=== PATIENT | male | born 1930 | race Caucasian/White ===

== ENCOUNTER 2016-05-24 15:11 | Inpatient (IN) | payer OTHER ==
[~2016-05-24] VITALS: Ht 177.8 cm; Wt 44.5 kg
--- NOTE | 2016-05-24 15:28 | NUR ---
PT TO ER WITH HIS SON, PT DID NOT WANT TO COME, PER SON PT IS WEAK TIRED NOT EATING AND DOES NOT WANT TO GET OUT OF BED FOR THE PAST FEW WEAKS . PT WAS SEEN IN A WALK IN FOR COMPLAINTS OF SOB AND WAS STARTED ON SPIRIVA. PT OFFERS NO COMPLAINTS BUT BECOMES VERY ANGRY WITH HIS AND SON WHEN THEY TRY TO HELP THIS NURSE WITH ANSWERS, SON VERY UPSET CRYING AND STATES THAT HE DOES'T KNOW WHAT TO DO. EMOTIONAL SUPPORT PROVIDED TO SON
--- NOTE | 2016-05-24 17:04 | ED GENERAL ADULT ---
History of Present Illness General Chief Complaint: General Adult Stated Complaint: GENERAL WEAKNESS Source: patient, family Exam Limitations: poor historian Vital Signs & Intake/Output Vital Signs & Intake/Output Vital Signs Date Time Temp Pulse Resp B/P Pulse O2 O2 Flow FiO2 Ox Delivery Rate 05/30 1649 93 Room Air 05/30 1600 Room Air 05/30 1554 98.2 83 21 123/74 95 Room Air 05/30 0825 97.7 78 20 120/60 92 Room Air 05/30 0751 95 Room Air ED Intake and Output 05/31 0000 05/30 1200 Intake Total 1160 620 Output Total 1850 1050 Balance -690 -430 Intake, IV 1160 560 Intake, Oral 0 60 Number 3 Bowel Movements Output, Urine 1850 1050 Allergies Coded Allergies: NO KNOWN ALLERGIES (05/24/16) Reconcile Medications Budesonide/Formoterol Fumarate (Symbicort 160-4.5 Mcg Inhaler) 160 MCG-4.5 MCG/ ACTUATION HFA.AER.AD COPD (Reported) Tiotropium [place] (Spiriva) 18 MCG CAP.W.DEV SOB (Reported) Triage Note: PT TO ER WITH HIS SON, PT DID NOT WANT TO COME, PER SON PT IS WEAK TIRED NOT EATING AND DOES NOT WANT TO GET OUT OF BED FOR THE PAST FEW WEAKS . PT WAS SEEN IN A WALK IN FOR COMPLAINTS OF SOB AND WAS STARTED ON SPIRIVA. PT OFFERS NO COMPLAINTS BUT BECOMES VERY ANGRY WITH HIS AND SON WHEN THEY TRY TO HELP THIS NURSE WITH ANSWERS, SON VERY UPSET CRYING AND STATES THAT HE DOES'T KNOW WHAT TO DO. EMOTIONAL SUPPORT PROVIDED TO SON Triage Nurses Notes Reviewed? yes HPI: This is an 85-year-old male with history of possible emphysema presents from home with his and son for a gradual progression of weakness for the past 1 week. According to the son he is not eating and drinking very much and is got very dehydrated. Patient denies any pain. The state that he has lost a lot of weight and usually is in the 130s and is now down to 90 pounds. He had an outpatient visit with a clinic and had a flu shot a few weeks ago. According to the patient has not felt well since then. No fever or chills. No productive cough. No vomiting or diarrhea. Past History Travel History Traveled to [place] past 21 day No Medical History Any Pertinent Medical History? 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 No Review of Systems Review of Systems Constitutional: Reports: malaise, weakness, unexplained weight loss. Denies: chills, fever. EENTM: Reports: no symptoms. Respiratory: Reports: cough. Denies: short of breath, sputum production. Cardiovascular: Denies: chest pain, palpitations, peripheral edema. GI: Denies: abdominal pain. Genitourinary: Reports: no symptoms. Musculoskeletal: Reports: no symptoms. Skin: Reports: no symptoms. Neurological/Psychological: Reports: anxiety. Hematologic/Endocrine: Denies: bruising, bleeding, polyuria, polydipsia. Immunologic/Allergic: Denies: splenectomy. All Other Systems: Reviewed and Negative Physical Exam Physical Exam General Appearance: alert, awake, anxious, cachetic, mild distress, obese Head: atraumatic, normal appearance Eyes: Bilateral: normal appearance, PERRL, EOMI. Ears, Nose, Throat: DRY ORAL MUCOSA Neck: normal inspection, supple, full range of motion Respiratory: normal breath sounds, chest non-tender, no respiratory distress Cardiovascular: regular rate/rhythm Peripheral Pulses: 2+ radial (R), 2+ radial (L) Gastrointestinal: normal bowel sounds, soft, non-tender Extremities: normal inspection, normal capillary refill, normal range of motion, no edema Neurologic/Psych: awake, alert, ORIENTED 1 Skin: intact, normal color, warm/dry Core Measures ACS in differential dx? No CVA/TIA Diagnosis: No Severe Sepsis Present: No Septic Shock Present: No Progress Differential Diagnoses I considered the following diagnoses in my evaluation of the patient: [FEDERICO, DEHYDRATION, SEPSIS, HYPOVOLEMIA, ] Plan of Care: Orders Procedure Date/time Status Regular Diet 05/30 L Complete Nothing by Mouth 05/30 D Active Patient Safety Monitor 05/30 1033 Active Grant, Insertion/Removal/Asses 05/30 1033 Active Treatment of Swallowing 05/30 UNK Complete Therapeutic Activities 05/30 UNK Complete Therapeutic Exercise 05/30 UNK Complete Gait Training 05/30 UNK Complete AEROSOL CHG 05/29 UNK Complete Current Medications Sig/Dominique Start time Last Medication Dose Stop Time Status Admin Docusate Sodium 100 MG BID PRN 05/26 1330 AC (Colace) Polyethylene Glycol 17 GM DAILY PRN 05/26 1330 AC (Miralax) Senna/Docusate Sodium 2 TAB DAILY PRN 05/26 1330 AC (Senokot S) Acetaminophen 650 MG Q6P PRN 05/24 2345 AC (Tylenol) Morphine Sulfate 2 MG Q8P PRN 05/24 2345 AC (Morphine) Tramadol HCl 25 MG Q12P PRN 05/24 2345 AC (Ultram) Diagnostic Imaging: Viewed by Me: CT Scan. Discussed w/RAD: CT Scan. Radiology Impression: EXAM TYPE: CAT - CT ABD & PELVIS W/O IV CONTRAS; CT CHEST WO IV CONTRAST; CT HEAD WO IV CONTRAST EXAMINATION: CT HEAD WITHOUT CONTRAST CT CHEST, ABDOMEN AND PELVIS WITHOUT CONTRAST CLINICAL INFORMATION: Multiple falls. Evaluate for intracranial bleed. Evaluate for mass/pneumonia. Evaluate for malignancy. COMPARISON: None. TECHNIQUE: Contiguous axial imaging was performed from the skull base to vertex without intravenous administration of contrast. DLP: Head 743.80 mGy-cm. Chest, abdomen and pelvis 355.02 mGy-cm. FINDINGS: HEAD Evaluation is degraded by patient motion. No definite evidence of acute intra-axial or extra-axial hemorrhage. No gross evidence of acute mass effect or midline shift. Prominence of the ventricles and sulci consistent with age- related involutional changes. Periventricular low-attenuation consistent with microvascular ischemic disease. Multiple lucencies compatible with bone demineralization versus lytic changes noted in the sphenoid bones and calvarium. Osseous metastases cannot be excluded. The mastoid air cells and visualized portions of the paranasal sinuses are well aerated. CT CHEST, ABDOMEN AND PELVIS CHEST: Evaluation is limited due to patient motion. Centrilobular emphysema. Reticular changes with associated irregular subpleural density right lower lobe (series 3 image 31/sagittal image 81) associated bronchial wall thickening. Findings are most likely secondary to scarring. Bronchial wall thickening and mild mucous plugging noted in bilateral lower lobes and to a lesser extent right middle lobe. Subsegmental atelectatic changes and scarring bilateral bases. 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 There is no evidence of mediastinal, supraclavicular or hilar lymphadenopathy. Unremarkable thyroid gland. Atherosclerotic disease of the aorta and the coronary arteries. No evidence of pleural or pericardial effusion. ABDOMEN AND PELVIS: Evaluation is limited by patient motion. Evaluation of the solid viscera is also limited without IV contrast. Liver, gallbladder and biliary tree appear grossly unremarkable. No gross pancreatic abnormality on the noncontrast images. Spleen appears unremarkable. Nonobstructing calculus mid right kidney measuring approximately 1.2 cm. Additional smaller calculus lower pole right kidney measuring 0.5 cm. No evidence of hydronephrosis. No gross renal cortical abnormality on the noncontrast images. Adrenal glands appear to be within normal limits. There is moderate to large amount of fecal material noted throughout the large bowel and rectum. Colonic diverticulosis. No gross evidence of acute diverticulitis. Nondistended stomach limiting the evaluation of the gastric wall. No gross evidence of acute bowel pathology. Atherosclerotic disease with intimal calcification of the aorta and aortic branches. No gross evidence of lymphadenopathy. Evaluation is limited due to paucity of intra-abdominal fat. Enlarged prostate gland measuring approximately 5.2 cm in the transverse diameter. Medial lobe hypertrophy projecting into the floor of the urinary bladder. No gross bladder wall abnormality. OSSEOUS STRUCTURES: Bony osteopenia or osteoporosis. Degenerative changes noted in the thoracic and lumbar spine. Degenerative changes bilateral hips. Abnormal lucency noted in the right iliac bone (series 602 image 52). Abnormal density also noted in the adjacent marrow. Bony lesion cannot be excluded. Additional subcortical lucency noted in the right posterior iliac bone likely represents a bone cyst. IMPRESSION: Examination is limited due to patient motion. 1. No acute intracranial pathology. 2. Moderate microvascular ischemic disease. 3. Multiple lucencies within the skull base and calvarium. Differential possibility includes severe bony demineralization versus lytic metastases. 4. Subpleural irregular density right lower lobe most likely represents scarring. Comparison to prior CT chest if available is recommended. In the absence of previous examinations, monitoring may be of value. Bronchial wall thickening and possible mucous plugging bilateral lower lobes. 5. No gross evidence of mass within abdomen or pelvis on the noncontrast images. No gross lymphadenopathy. 6. Nonobstructing calculi right kidney. 7. Abnormal lucency right iliac bone. Lytic osseous lesion cannot be excluded.. Initial ED EKG: NSR Departure Departure Disposition: STILL A PATIENT Condition: Stable Clinical Impression Primary Impression: Hypercalcemia Secondary Impressions: Failure to thrive, Multiple falls, Weakness Referrals: BEVERLEY SANTAMARIA MD (PCP/Family) Referred to [facility] as new patient No Departure Forms: Customer Survey General Discharge Information Admission Note Documentation of Exam: Documentation of any treatments & extenuating circumstances including Concerns Regarding Discharge (functional status, medication knowledge or non-compliance, living conditions, etc.) that warrant an admission rather than observation: [IV FLUIDS, MONITOR I/O, EVALUATION FOR HYPERCALCEMIA, PHYSICAL THERAPY CONSULT CONSIDERING MULTIPLE FALLS, WORKUP FOR WEIGHT LOSS] Critical Care Note Critical Care Note Critical Care Time: non-applicable
--- NOTE | 2016-05-24 17:38 | NUR ---
LABS DRAWN AND SENT BY THIS [facility]ST BLUE X2, SST X2, LAV X2, PINK, GRIFFIN 1ST SET OF CULTURES
--- NOTE | 2016-05-24 17:46 | NUR ---
IV ESTABLISHED AND NS IVF BOLUS RUNNING. EKG COMPLETED. PT SHIVERING, EXTRA BLANKETS APPLIED. FAMILY AT BEDSIDE
[2016-05-24 17:48] LABS: ABSOLUTE BASOPHIL COUNT 0.1 /CUMM (0.0-0.2); ABSOLUTE EOSINOPHIL COUNT 0 /CUMM (0.0-0.7); ABSOLUTE GRANULOCYTE CT 11.4 /CUMM (1.4-6.5); ABSOLUTE LYMPH COUNT 1.5 /CUMM (1.2-3.4); ABSOLUTE MONOCYTE COUNT 0.7 /CUMM (0.10-0.60); BASOPHIL % 0.8 % (0.0-2.0); EOSINOPHIL % 0.2 % (0-5); GRANULOCYTE % 82.6 % (42.2-75.2); HEMATOCRIT 44.6 % (42-52); MEAN CORPUSCULAR HGB 31.7 PG (27.0-31.0); MEAN CORPUSCULAR HGB CONC 33.7 G/DL (33.0-37.0); MEAN PLATELET VOLUME 8.2 FL (7.4-10.4); PLATELET COUNT 290 /CUMM (130-400); RBC DISTRIBUTION WIDTH 13.6 % (11.5-14.5); RED BLOOD CELL CT 4.74 /CUMM (4.70-6.10); WHITE BLOOD CELL COUNT 13.8 /CUMM (4.8-10.8)
[2016-05-24 17:59] LABS: PT 11.8 SEC (9.4-12.5); PTT 28 SEC (25-37)
--- NOTE | 2016-05-24 18:05 | NUR ---
PT TO CAT SCAN
--- NOTE | 2016-05-24 18:23 | NUR ---
PT'S COLORING IMPROVED AT THIS TIME, HANDS WARMER AND IMPROVED PERFUSION. O2 SAT 95% ON ROOM AIR AND DENIES RESP DISTRESS. PT STATES HE WOULD LIKE TO STAY HERE TONIGHT. EMOTIONAL SUPPORT PROVIDED TO SON WHO REMAINS TEARFUL
--- NOTE | 2016-05-24 19:04 | CT SCAN REPORT ---
EXAMINATION: CT HEAD WITHOUT CONTRAST CT CHEST, ABDOMEN AND PELVIS WITHOUT CONTRAST CLINICAL INFORMATION: Multiple falls. Evaluate for intracranial bleed. Evaluate for mass/pneumonia. Evaluate for malignancy. COMPARISON: None. TECHNIQUE: Contiguous axial imaging was performed from the skull base to vertex without intravenous administration of contrast. DLP: Head 743.80 mGy-cm. Chest, abdomen and pelvis 355.02 mGy-cm. FINDINGS: HEAD Evaluation is degraded by patient motion. No definite evidence of acute intra-axial or extra-axial hemorrhage. No gross evidence of acute mass effect or midline shift. Prominence of the ventricles and sulci consistent with age-related involutional changes. Periventricular low-attenuation consistent with microvascular ischemic disease. Multiple lucencies compatible with bone demineralization versus lytic changes noted in the sphenoid bones and calvarium. Osseous metastases cannot be excluded. The mastoid air cells and visualized portions of the paranasal sinuses are well aerated. CT CHEST, ABDOMEN AND PELVIS CHEST: Evaluation is limited due to patient motion. Centrilobular emphysema. Reticular changes with associated irregular subpleural density right lower lobe (series 3 image 31/sagittal image 81) associated bronchial wall thickening. Findings are most likely secondary to scarring. Bronchial wall thickening and mild mucous plugging noted in bilateral lower lobes and to a lesser extent right middle lobe. Subsegmental atelectatic changes and scarring bilateral bases. 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 There is no evidence of mediastinal, supraclavicular or hilar lymphadenopathy. Unremarkable thyroid gland. Atherosclerotic disease of the aorta and the coronary arteries. No evidence of pleural or pericardial effusion. ABDOMEN AND PELVIS: Evaluation is limited by patient motion. Evaluation of the solid viscera is also limited without IV contrast. Liver, gallbladder and biliary tree appear grossly unremarkable. No gross pancreatic abnormality on the noncontrast images. Spleen appears unremarkable. Nonobstructing calculus mid right kidney measuring approximately 1.2 cm. Additional smaller calculus lower pole right kidney measuring 0.5 cm. No evidence of hydronephrosis. No gross renal cortical abnormality on the noncontrast images. Adrenal glands appear to be within normal limits. There is moderate to large amount of fecal material noted throughout the large bowel and rectum. Colonic diverticulosis. No gross evidence of acute diverticulitis. Nondistended stomach limiting the evaluation of the gastric wall. No gross evidence of acute bowel pathology. Atherosclerotic disease with intimal calcification of the aorta and aortic branches. No gross evidence of lymphadenopathy. Evaluation is limited due to paucity of intra-abdominal fat. Enlarged prostate gland measuring approximately 5.2 cm in the transverse diameter. Medial lobe hypertrophy projecting into the floor of the urinary bladder. No gross bladder wall abnormality. OSSEOUS STRUCTURES: Bony osteopenia or osteoporosis. Degenerative changes noted in the thoracic and lumbar spine. Degenerative changes bilateral hips. Abnormal lucency noted in the right iliac bone (series 602 image 52). Abnormal density also noted in the adjacent marrow. Bony lesion cannot be excluded. Additional subcortical lucency noted in the right posterior iliac bone likely represents a bone cyst. IMPRESSION: Examination is limited due to patient motion. 1. No acute intracranial pathology. 2. Moderate microvascular ischemic disease. 3. Multiple lucencies within the skull base and calvarium. Differential possibility includes severe bony demineralization versus lytic metastases. 4. Subpleural irregular density right lower lobe most likely represents scarring. Comparison to prior CT chest if available is recommended. In the absence of previous examinations, monitoring may be of value. Bronchial wall thickening and possible mucous plugging bilateral lower lobes. 5. No gross evidence of mass within abdomen or pelvis on the noncontrast images. No gross lymphadenopathy. 6. Nonobstructing calculi right kidney. 7. Abnormal lucency right iliac bone. Lytic osseous lesion cannot be excluded..
--- NOTE | 2016-05-24 19:24 | NUR ---
SECOND LITER OF NS STARTED. PT ALERT AND TALKING.
--- NOTE | 2016-05-24 19:51 | NUR ---
PT ASSISTED TO LAVATORY TO URINATE.
--- NOTE | 2016-05-24 20:41 | History & Physical ---
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
--- NOTE | 2016-05-24 20:47 | NUR ---
PT REPOSITIONED IN BED, EDUCATED ON PLAN FOR EVAL BY HOUSE STAFF. SON PROVIDED EDUCATION AND SUPPORT, AWARE THAT PT MAY BE IN DEPT FOR A WHILE UNTIL BED IS AVAILABLE. SON TOOK MOST OF CLOTHES, PT REMAINS IN HIS OWN PANTS PER PREFERENCE. LIGHTS DIMMED FOR COMFORT
[2016-05-24] MEDS ORDERED: SPIRIVA18 MCG INH (21:10)
[2016-05-24] MEDS ORDERED: SYMBICORT 16010.2 GM INH (21:11)
--- NOTE | 2016-05-24 21:25 | NUR ---
HOUSE STAFF AT BEDSIDE
--- NOTE | 2016-05-24 21:32 | NUR ---
REPEAT LACTIC DRAWN AND SENT. PT ALERT, CONVERSING WITH ENTHUSIASM WITH HOUSE STAFF. COLORING IMPROVED.
--- NOTE | 2016-05-24 21:32 | NUR ---
URINE TRIO SENT TO LAB
--- NOTE | 2016-05-24 21:33 | NUR ---
PT HAS A BED 215-2
--- NOTE | 2016-05-24 22:01 | NUR ---
CRITICAL TEST RESULTS [id number] JACINTA MEDEIROS 85 M TESTS AND RESULTS: LACTIC ACID 2.3 Results received and read back by: MYLA BLANCO Results received date and time: 05/24/162201 The following provider was notified of the results, and read the results back: DR NEUMANN Notified date and time: 05/24/16 at 2202
--- NOTE | 2016-05-24 22:14 | NUR ---
GAVE REPORT TO MARCELINO ON
--- NOTE | 2016-05-24 22:24 | NUR ---
PT NOTED TO BE AMBULATORY IN ROOM AND HAD EPISODE OF INCONTINENCE DESPITE MULTIPLE EXPLANATIONS ON USE OF CALL MCCANN. BRIEF APPLIED AND PT ASSISTED BACK TO BED. REMAINS AAOX3
[2016-05-24 22:50] VITALS: BP 118/58
--- NOTE | 2016-05-24 23:24 | NUR ---
ADMISSION NOTE: PT ARRIVED TO FLOOR IN STRETCHER WITH DISTRIBUTION A/OX3, ROOM AIR, NO PAIN, SHIVERING- C/O COLD, APPRECIATED WARM RICE SOCK, VSS, ORITENTED TO ROOM, WAS ABLE TO GIVE ALL INFO IN ADMISSION INTERVIEW EXCEPT HEIGHT AND WEIGHT, ESOB NOTED, ROOM AIR SAT WAS 94%, LUNGS SOUNDED DIMINISHED/RHONCHEROUS. WILL CONTINUE TO MONITOR.
--- NOTE | 2016-05-25 01:10 | History & Physical ---
YVONNE GUTIERREZ,[facility] 05/25/16 0109: General Information and [facility] MD Statement: I have seen and personally examined JACINTA NICE and documented this H&P. The patient is a 85 year old M who presented with a patient stated chief complaint of [general weakness for 4 weeks]. Source of Information: patient, family Exam Limitations: poor historian History of Present Illness: Mr. Nice is 85 years old male with chief complaint of generalized weakness for 4 weeks. PMH of BPH s/p TURP 2 time last was 2 years ago. He has significant history of nonproductive cough and weight loss over a course of 1 year. Patient was brought to ED by his and son because he was found very weak and had urinary incontinence for the first time yesterday. Patient is alert oriented but sometimes poor historian, son is a parallel source of history. The patient reported that 4 weeks ago after he received a flu shot at [facility], he started to feel weak with progressive deterioration associated with shortness of breath, night sweats, poor oral intake. His son reported that despite this week the patient was able to do his daily activity and able to drive until last weekend but his weakness was getting worse over the last week. His family noticed weight loss at [facility] of 1-2 Ib/week despite good oral intake until 1 month ago. They also noticed that the patient is getting irritable and his chronic cough was getting worse for which he visited walk-in clinic right after Thanksgiving and was prescribed Spreva and Symbicort, he also used to use of Robitussin 2 bottles daily. The patient didn't see his PCP for a very long time. Patient reported feeling shaky, lightheadedness at some time. Denied any fever, chills, chest pain or palpitation, abdominal pain, nausea vomiting, history of urinary or stool incontinence. The patient is an ex-smoker quit 10 years ago, was a heavy smoker for over 40 years. Drinks alcohol occasionally, no history of drugs. He worked in [employer], retired 4 years ago. His family history is not significant for any malignancy, his son has HIV with undetectable viral load for the last 3 years. Allergies/Medications Allergies: Coded Allergies: NO KNOWN ALLERGIES (05/24/16) Home Med list Budesonide/Formoterol Fumarate (Symbicort 160-4.5 Mcg Inhaler) 160 MCG-4.5 MCG/ ACTUATION HFA.AER.AD COPD (Reported) Tiotropium [place] (Spiriva) 18 MCG CAP.W.DEV SOB (Reported) Past History Travel History Traveled to [place] past 21 day No Medical History Blood Transfusion Hx: No Neurological: NONE EENT: NONE Cardiovascular: NONE Respiratory: chronic cough Gastrointestinal: NONE Hepatic: NONE Renal: NONE Musculoskeletal: NONE Psychiatric: NONE Endocrine: NONE Blood Disorders: NONE Cancer(s): NONE EDUCATION DEPARTMENT CHAIR/Reproductive: NONE Influenza Vaccine: 03/11/16 Surgical History Surgical History: TURP Past Family/Social History Psychosocial History Where do you live? Home Who Do You Live With? 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 Denies: chills, fever. EENTM: Denies: blurred vision, hearing changes, nasal congestion. Cardiovascular: Denies: chest pain, orthopena, palpitations, syncope. Respiratory: Reports: cough, short of breath. Denies: orthopnea, sputum production, stridor, wheezing. GI: Denies: abdominal pain, constipation, diarrhea, nausea, vomiting. Genitourinary: Denies: discharge, dysuria, frequency, hematuria, hesitation. Musculoskeletal: Denies: back pain, joint pain, muscle pain. Skin: Denies: rash. Neurological/Psychological: Reports: tremors. Denies: confusion, tingling. Hematologic/Endocrine: Reports: bruising. Denies: bleeding. Exam & Diagnostic Data Last 24 Hrs of Vital Signs/I&O Vital Signs Date Time Temp Pulse Resp B/P Pulse O2 O2 Flow FiO2 Ox Delivery Rate 05/24 2250 97.4 82 18 118/58 94 Room Air 05/24 2230 Room Air 05/24 2224 80 16 116/67 94 Room Air 05/246 97.2 86 18 132/72 92 Room Air 05/24 1822 90 18 95 Room Air 05/24 1817 92 Room Air 05/24 1805 88 14 134/63 Room Air 05/24 1521 97.9 117 20 117/79 92 Room Air Intake & Output 05/25 0800 05/25 0000 05/24 1600 Intake Total 1600 Output Total 300 200 Balance -300 1400 Intake, IV 1600 Output, Urine 300 200 Patient 44.452 kg Weight Physical Exam General Appearance Alert, Oriented X3, Cooperative, No Acute Distress, cachectic Skin No Rashes, No Breakdown, bruises over his arms bilaterally because of IV lines HEENT Atraumatic, PERRLA, EOMI, very dry mucous membrane Neck Supple Lymphatic no cervical lymphadenopathy Cardiovascular Regular Rate, Normal S1, Normal S2, No Murmurs Lungs Normal Air Movement Abdomen Normal Bowel Sounds, firm but no tenderness Neurological Normal Speech, Strength at 5/5 X4 Ext, Normal Tone, Sensation Intact, Cranial Nerves 3-12 NL Extremities No Clubbing, No Cyanosis, No Edema, Normal Pulses Assessment/Plan Assessment: Mr. Nice is 85 years old male with chief complaint of generalized weakness for 4 weeks. PMH of BPH s/p TURP 2 time last was 2 years ago. He has significant history of nonproductive cough and weight loss over a course of 1 year. Patient was brought to ED by his and son because he was found very weak and had urinary incontinence for the first time yesterday. On admission Vital signs temperature 97.9, pulse 90 regular rhythm, respiratory rate 18 on the room air saturation 95%, temperature 54/63 Labs significant for WBC 13.8, H&H 15/44.6, sodium 136, potassium 4.9, bicarbonate 35, BUN 31, creatinine 1, lactic acid 2.2, calcium 13.9, creatinine kinase 34 low, total protein 11.2 high, albumin 3.9, globulin 7.3, TSH 2.8, free T4 1 0.57, parathyroid hormone intact 7.3 Problem list #Chronic history with lei loss #Progressive weakness #Chronic history of nonproductive cough #Dehydration #Chronic history with lei loss #Progressive weakness -The patient reported history of weight loss course of 1 year and recent history of poor oral intake, night sweats, progressive weakness -Lab results are significant for metabolic acidosis, increased BUN, creatinine of 1 that doesn't correlate with the patient's muscle mass, high total protein of 11.2 with significant globulin 7.3, normal parathyroid hormone, hypercalcemia -Imaging studies CT head, chest, abdomen and pelvis are significant fore. 1. Multiple lucencies within the skull base and calvarium. Differential possibility includes severe bony demineralization versus lytic metastases. 2. Abnormal lucency right iliac bone. Lytic osseous lesion cannot be excluded. -Given the patient's symptoms, lab results and imaging studies the suspicion is towards multiple myeloma -Consider serum and urine flow cytometry -Serum protein electrophoresis with immunofixation, serum free monoclonal light chain analysis -Monitor lactic acid, creatinine, albumin, calcium, C-reactive protein and beta 2 microglubin -Peripheral blood smear #Chronic history of nonproductive cough -Patient has history of heavy smoking for over 40 years, quit 10 years ago -History of chronic cough over one year nonproductive associated with shortness of breath -CT chest shows 1. Subpleural irregular density right lower lobe most likely represents scarring. Comparison to prior CT chest if available is recommended. In the absence of previous examinations, monitoring may be of value. Bronchial wall thickening and possible mucous plugging bilateral lower lobes. -Consider pulmonary function test -TRC evaluation #Dehydration -Patient of physical examination is very dry him up BUN is 31 -Patient received 2 boluses of IV fluid normal saline ED -Continue aggressive rehydration with normal saline 1 50 mL/h Diet regular DVT prophylaxis subcutaneous heparin and alps As Ranked By This Provider Problem List: 1. Weakness 2. Hypercalcemia 3. Failure to thrive Core Measures/Miscellaneous Acute Coronary Syndrome ACS Diagnosis: No Cerebrovascular Accident CVA/TIA Diagnosis: No Congestive Heart Failure CHF Diagnosis: No Venous Thromboembolism VTE Risk Factors: Age > 40 VTE Prophylaxis Ordered Inpt: Pharm- Heparin No Mech VTE prophylaxis d/t: No contraindications No VTE Pharm Prophylaxis d/t: No contraindications VTE Diagnosis: No VTE Type: NONE VTE Confirmed by (Test): NONE Severe Sepsis Severe Sepsis Present: No Septic Shock Septic Shock Present: No Miscellaneous Documentation Attending Case Discussed With: MYRANDA LAW MD Primary Care Physician: BEVERLEY SANTAMARIA MD Patient sees these Specialists None Level of Patient Care: General Medicine SHERON GOLDMAN MD 05/25/16 0329: Resident Review Statement Resident Statement: examined this patient, discussed with leadership program intern, agreed with leadership program intern Other Findings: 85 YO male arrives to the hospital at his sons request, family feel that he has been loosing alot of weight recently. They were not present during interview, we reached out to his son to provide collaterals as the patient answers questions sporadically. Son reports that over the past year his dad had a chronic cough as well as weight loss. Over the past 4 weeks both have been more pronounced. Report that his father does have a good appetite yet despite this is loosing a significant amount of weight. Relay that he got the flue vaccine last month and his cough has increased along with irritabilty and profound weight loss as well as night sweats. He has not seen his PCP in years and when he developed this increased cough went to walkin clinic, was prescribed inhalers, he also started using robitussin more than directed, (2 bottles daily) Mr. 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 Was driving his car last week. Denies chest pain, palpitatations, [place], vomiting, diarrhea. He does have a history of extensive tobaccco use of more than 40 years duration before quitting 10 years ago. 97.2, 86, 18, 132/72, 92 RA Severely cachetic appearing male, alert, awake, mildly aggitated, requires redirection to conduct interview HEENT NCAT, PERRLA, EOMI, dry mucosa Neck ROM wnl, muscle wasting Resp decreased breath sounds cvs S1, S2 w/o m,r,g abdo nontender, nondistended, firm, bs + ext bruising noted on upperarms, actinic keratosis on skin WBC 13.8, granulocytes 82%, Bicarb 35, lactic acid 2.2, Calcium 13.9 Total Protein 11.2, Albumin 3.9, Globulin 7.3, PTH <6.3, TSH/T4 WNL SR 96, QTc 440 Imgaging (limited due to patient motion) 1. No acute intracranial pathology. 2. Moderate microvascular ischemic disease. 3. Multiple lucencies within the skull base and calvarium. Differential possibility includes severe bony demineralization versus lytic metastases. 4. Subpleural irregular density right lower lobe most likely represents scarring. Comparison to prior CT chest if available is recommended. In the absence of previous examinations, monitoring may be of value. Bronchial wall thickening and possible mucous plugging bilateral lower lobes. 5. No gross evidence of mass within abdomen or pelvis on the noncontrast images. No gross lymphadenopathy. 6. Nonobstructing calculi right kidney. 7. Abnormal lucency right iliac bone. Lytic osseous lesion cannot be excluded. 85 M presents with complaints of chronic cough for the past one year along with profound weight loss and generalized weakness for the past 4 weeks. Found to be hypercalemic with low PTH, clinically severely dehydrated. Labs and imaging suggestive of myeloma. We will admit to [facility] floor We will continue to aggressively hydrate him, his calcium level is 13.9. We will hold off on calcitonin and pamindronate at this time. We will continue IVF and check am labs. We will check SPEP and UPEP levels, along with vitamin D levels. His leukocytocytosis is likely reactive, we will hold off on abx at this time and get urine cultures, blood cultures already ordered. His lactic acid level is elevated we will recheck in am after fluid supplementation. CT scan obtained demonstrates irregular density with scarring. 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 Check to see if PCP has any record of imaging done in recent past. Will place on heparin sq for dvt ppx. ANI,AARTEE 05/25/16 0521: Attending MD Review Statement Attending Statement Attending MD Statement: examined this patient, discuss w/resident/PA/FOREIGN AGENT, agreed w/resident/PA/FOREIGN AGENT, discussed with family, reviewed EMR data (avail), reviewed images, amended to note Attending Assessment/Plan: CC: Lethargy, weakness, decreased by mouth intake PMHx : ?COPD, Ex-smoker Patient was brought in by his son for multiple complaints including but not limited to lethargy, decreased by mouth intake (4 weeks), weakness, chronic cough (1 year), night sweats, weight loss (1year). These symptoms have been going on since a few weeks but worse since last 1 week. He is not getting up from the bed much, and had an episode of urinary incontinence today. He was recently prescribed some inhalation therapy in walk-in clinic for cough and shortness of breath. He does not follow with the PCP, and has not received any medical care since long time. Patient keeps on refusing according to son Vitals: Tachycardia at presentation 117 then decreased to 82, BP, RR, O2 saturation within acceptable range. on exam: A O 2, mild respiratory distress, cachectic, neck supple, no lymphadenopathy, CVS, RS and abdomen exam unremarkable, neurologically intact but cognition appears mildly impaired, at times inappropriate response. Labs: WBC 13.8 with neutrophils 82%, calcium 13.9, bicarbonate 35, lactate 2.2, total protein 11.2, globulin 7.3. CT head, CT chest and CT abdomen and pelvis: Moderate microvascular ischemic disease. Multiple lucencies within the skull base and calvarium. Differential possibility includes severe bony demineralization versus lytic metastases. Subpleural irregular density right lower lobe most likely represents scarring. Abnormal lucency right iliac bone. Lytic osseous lesion cannot be excluded.. A and P #1 hypercalcemia: Check PTH, vitamin D level, he has elevated total protein and globulin, check UPEP and SPEP, continue IV fluids, repeat CBC BMP and LFT in a.m. #2 cachexia and failure to thrive: Unclear etiology, patient does hypercalcemia, likely lesions in the bone, increased total protein and globulin. Check prealbumin, nutrition consult, UPEP and SPEP as mentioned above, PT evaluation #3 shortness of breath and cough : History of smoking, CT suggestive of emphysema, increased by bicarbonate, but O2 saturation normal. No obvious wheezing on exam. continue when necessary nebulization treatments. Outpatient PFT #4 leukocytosis : No fever. Patient has chronic cough, CT chest shows reticular changes and subpleural density in the right lower lobe likely secondary to scarring, obtain UA, urine culture, blood cultures, sputum culture. Patient is currently a febrile, repeat CBC in a.m., if persistent leukocytosis or trending up then he might need antibiotics, currently hold off antibiotics
--- NOTE | 2016-05-25 05:02 | Admission Certification ---
Admission Certification Certification Statement - As attending physician, I certify that at the time of - admission, based on clinical presentation, severity of - symptoms, need for further diagnostic testing and - therapeutic interventions, and risk of adverse outcomes - without in-hospital treatment, in my clinical assessment, - this patient requires an acute hospital stay for a minimum - of two nights or longer. I have also considered psychsocial - factors such as support system, advanced age, financial - issues, cognitive issues, and failed out-patient treatments, - past re-admission history, safety of patient, and lack of - compliance as applicable. Specific rationale supporting this admission is: Failure to thrive, hypercalcemia
--- NOTE | 2016-05-25 06:53 | PN- Housestaff ---
See Addendum Subjective Follow-up For: hypercalcemia ?multiple myeloma cachexia failure to thrive Subjective: pt was seen this morning, very cachectic - ck 34 reviewing the imaging findings and the labs so far, suspicious for multiple myeloma. his son is very anxious and tearful regarding pt's condition. his is demented and forgetful. son very frustrated that neither the or the pt were listening or appeared concern while i was discussing the findings and diagnostic possibilities with him. I spoke to Dr. Novak this morning and he was recommending starting bisphosphonate therapy, getting skeletal survey, b2 microglobulin, immunoglobulin level inc igg, igm, iga, immunofixation, serum free light chain, and ldh. we are still waiting for the urine protein electrophoresis and serum protein electrophoresis. we also ordered pth-rp. as some of these tests are send -outs, it might take 4-5 days to obtain the results. - ldh 325 - ca 13.9 to 12.3 - la 2.3 --> 1.1 his hypercalcemia improved with ivf 150ml/hr, went from 13.9 to 12.3. his albumin is 3.9 . - family reports that he has been more angry and yelling at them lately. - pth < 6.3 L - bun/cr on admssion 11/07 (pt very cachectic) .. appears dehydrated we will obtain nutritional and pt consult Review of Systems Constitutional: Reports: see HPI. Objective Last 24 Hrs of Vital Signs/I&O Vital Signs Date Time Temp Pulse Resp B/P Pulse O2 O2 Flow FiO2 Ox Delivery Rate 05/25 0824 98.4 05/25 0803 98.0 80 20 120/60 95 Room Air 05/24 2250 97.4 82 18 118/58 94 Room Air 05/24 2230 Room Air 05/24 2224 80 16 116/67 94 Room Air 05/24 2026 97.2 86 18 132/72 92 Room Air 05/24 1822 90 18 95 Room Air 05/24 1817 92 Room Air 05/24 1805 88 14 134/63 Room Air Intake & Output 05/25 1600 05/25 0800 05/25 0000 Intake Total 1800 1600 Output Total 960 300 200 Balance 840 -300 1400 Intake, IV 1600 Intake, Oral 1800 Output, Urine 960 300 200 Physical Exam General Appearance: Alert, Cooperative, No Acute Distress, cachectic Skin: No Significant Lesion HEENT: Atraumatic, PERRLA, EOMI Neck: Supple Lymphatic: Axillary nl, Cervical nl Cardiovascular: Regular Rate, Normal S1, Normal S2 Lungs: Clear to Auscultation, Normal Air Movement Abdomen: Normal Bowel Sounds, Soft, No Tenderness Neurological: Normal Speech Extremities: No Edema Current Medications: Current Medications Sig/Dominique Start time Last Medication Dose Route Stop Time Status Admin Acetaminophen 650 MG Q6P PRN 05/24 2345 AC PO Alendronate Sodium 70 MG QTHURS 05/25 1145 AC PO Heparin Sodium 5,000 UNIT Q8 05/25 0600 AC 05/25 (Porcine) SC 0547 Morphine Sulfate 2 MG Q8P PRN 05/24 2345 AC IV Pneumococcal 0.5 ML 1000 05/25 1000 DC 05/25 Polyvalent Vaccine IM 05/25 1001 0824 Sodium Chloride 1,000 ML Q8H 05/24 2345 AC 05/25 IV 0651 Sodium Chloride 1,000 ML BOLUS ONE 05/24 1915 DC 05/24 IV 05/24 2014 1923 Sodium Chloride 1,000 ML BOLUS ONE 05/24 1730 DC 05/24 IV 05/24 1829 1746 Tramadol HCl 25 MG Q12P PRN 05/24 2345 AC PO Last 24 Hrs of Lab/Bert Results Last 24 Hrs of Labs/Mics: Laboratory Tests 05/25/16 0655: Anion Gap 2 L, Estimated GFR > 60, BUN/Creatinine Ratio 24.4, Lactic Acid 1.1, Calcium 12.3 H, Lactate Dehydrogenase 325 05/25/16 0655: Prot Electrophoresis Pending, Total Protein (PEP) Pending, Albumin % (PEP) Pending, Phtbo-5-Hkamxkixg Pending, Wgjly-9-Jmcfjllfr Pending, Yxgs-1-Nrojmpid Pending, Shri-1-Pkaxdijr Pending, Gamma Globulins Pending, Abnorm Protein Band 1 Pending, Abnorm Protein Band 2 Pending, Abnorm Protein Band 3 Pending, Vit D 1, 25-Dihyd Total Pending, 1,25 Dihydroxy Vit D2 Pending, 1,25 Dihydroxy Vit D3 Pending, CBC w Diff NO MAN DIFF REQ, RBC 3.74 L, MCV 94.2 H, MCH 32.0 H, RDW 13.5, MPV 8.9, Gran % 81.9 H, Lymphocytes % 10.0 L, Monocytes % 7.5, Eosinophils % 0.2, Basophils % 0.4, Absolute Granulocytes 10.0 H, Absolute Lymphocytes 1.2, Absolute Monocytes 0.9 H, Absolute Eosinophils 0, Absolute Basophils 0, PUBS MCHC 34.0 05/24/162131: Lactic Acid 2.3 H 05/24/162124: Urinalysis LIGHT H, Urine Color YEL, Urine Clarity CLEAR, Urine pH 7.0, Ur Specific [place] 1.015, Urine Protein NEG, Urine Ketones NEG, Urine Nitrite NEG, Urine Bilirubin NEG, Urine Urobilinogen 0.2, Ur Leukocyte Esterase NEG, Ur Microscopic SEDIMENT EXAMINED, Urine RBC 1-3, Urine WBC RARE, Ur Epithelial Cells FEW, Urine Hemoglobin TRACE-INTACT H, Urine Glucose NEG 05/24/161712: Lactic Acid 2.2 H, Creatine Kinase 34 L 05/24/161712: Anion Gap 5, Estimated GFR > 60, BUN/Creatinine Ratio 31.0 H, Glucose 121 H, Calcium 13.9 H, Total Bilirubin 0.9, AST 22, ALT 20 L, Alkaline Phosphatase 116, Troponin I < 0.01, Total Protein 11.2 H, Albumin 3.9, Globulin 7.3 H, Albumin/Globulin Ratio 0.5 L, TSH 2.820, Free T4 1.37, PTH Intact < 6.3 L, PT 11.8, INR 1.13, APTT 28, CBC w Diff NO MAN DIFF REQ, RBC 4.74, MCV 94.0, MCH 31.7 H, RDW 13.6, MPV 8.2, Gran % 82.6 H, Lymphocytes % 11.2 L, Monocytes % 5.2, Eosinophils % 0.2, Basophils % 0.8, Absolute Granulocytes 11.4 H, Absolute Lymphocytes 1.5, Absolute Monocytes 0.7 H, Absolute Eosinophils 0, Absolute Basophils 0.1, PUBS MCHC 33.7 Microbiology 05/255 URINE ROUT: Urine Culture - RECD 05/24 1910 BLOOD: Blood Culture - RES 05/24 1910 BLOOD: Blood Culture - RES Assessment/Plan Assessment: Mr. Nice is 85-year-old male with chief complaint of generalized weakness for 4 weeks. PMH of BPH s/p TURP 2 time last was 2 years ago. He has significant history of nonproductive cough and weight loss over a course of 1 year. Patient was brought to ED by his and son because he was found very weak and had urinary incontinence for the first time on day of admission . Coude catheter day # 1 Problem list # Possible multiple myeloma: hypercalcemia, low PTH, weakness, cachexia, dehydration # Chronic history of nonproductive cough # Possible multiple myeloma: hypercalcemia, low PTH, weakness, cachexia - Discussed with Dr. Novak - ldh 325 - ca 13.9 to 12.3 - la 2.3 --> 1.1 - total protein 11.2. total albumin 3.9. - ck 34 - The patient reported history of weight loss course of 1 year and recent history of poor oral intake, night sweats, progressive weakness - Lab results are significant for metabolic acidosis, increased BUN, creatinine of 1 that doesn't correlate with the patient's muscle mass, high total protein of 11.2 with significant globulin 7.3, low parathyroid hormone, hypercalcemia - Imaging: Multiple lucencies within the skull base and calvarium. Differential possibility includes severe bony demineralization versus lytic metastases.Abnormal lucency right iliac bone. Lytic osseous lesion cannot be excluded. * follow skeletal survey: Extensive lucent lesions throughout the osseous structures, most prominently affecting the skull, pelvis, and extremities. Findings are suspicious for multiple myeloma versus metastatic disease. * pending b2 microglobulin, immunoglobulin level inc igg, igm, iga, immunofixation, serum free light chain. urine protein electrophoresis and serum protein electrophoresis. pth-rp. as some of these tests are send-outs, it might take 4-5 days to obtain the results. * Appreciate heme onc input * Consider serum and urine flow cytometry * Serum protein electrophoresis with immunofixation, serum free monoclonal light chain analysis * Monitor lactic acid, creatinine, albumin, calcium, C-reactive protein and beta 2 microglubin * Peripheral blood smear * Continue aggressive rehydration with normal saline 150 mL/h * we will obtain nutritional and pt consult * pp: oral tylenol, tramadol 25 q12p, morphine 2q8p * pt refused bone marrow biopsy and chemo * might be candidate for steroids # Hypercalcemia - his hypercalcemia improved with ivf 150ml/hr, went from 13.9 to 12.3. his albumin is 3.9 . - family reports that he has been more angry and yelling at them lately. - pth < 6.3 L - on admssion bun/cr 31/1 (pt very cachectic) .. appears dehydrated * Started alendronate # Chronic history of nonproductive cough - Patient has history of heavy smoking for over 40 years, quit 10 years ago - History of chronic cough over one year nonproductive associated with shortness of breath -CT chest shows subpleural irregular density right lower lobe most likely represents scarring. Comparison to prior CT chest if available is recommended. In the absence of previous examinations, monitoring may be of value. Bronchial wall thickening and possible mucous plugging bilateral lower lobes. * Consider pulmonary function test * TRC evaluation Diet: regular DVT prophylaxis: subcutaneous heparin and alps FULL CODE Problem List: 1. Failure to thrive 2. Hypercalcemia 3. Weakness Pain Ratin Pain Location: none Pain Goal: Remain pain free Pain Plan: mild pp Tomorrow's Labs & Rationales: bep and ca for hypercalcemia cbc for leukocytosis DVT/Prophylaxis: mechanical, pharmacological
[2016-05-25 08:03] VITALS: BP 120/60
[2016-05-25 08:24] LABS: ABSOLUTE BASOPHIL COUNT 0 /CUMM (0.0-0.2); ABSOLUTE EOSINOPHIL COUNT 0 /CUMM (0.0-0.7)
[2016-05-25 08:41] LABS: ABSOLUTE LYMPH COUNT 1.2 /CUMM (1.2-3.4); ABSOLUTE MONOCYTE COUNT 0.9 /CUMM (0.10-0.60); BASOPHIL % 0.4 % (0.0-2.0); EOSINOPHIL % 0.2 % (0-5); GRANULOCYTE % 81.9 % (42.2-75.2); MEAN CORPUSCULAR VOLUME 94.2 FL (80.0-94.0); MEAN PLATELET VOLUME 8.9 FL (7.4-10.4); PLATELET COUNT 277 /CUMM (130-400); RBC DISTRIBUTION WIDTH 13.5 % (11.5-14.5); RED BLOOD CELL CT 3.74 /CUMM (4.70-6.10); WHITE BLOOD CELL COUNT 12.2 /CUMM (4.8-10.8)
[2016-05-25 08:49] LABS: HEMATOCRIT 35.3 % (42-52)
--- NOTE | 2016-05-25 15:27 | RADIOLOGY REPORT ---
EXAMINATION: XR BONE SURVEY CLINICAL INFORMATION: Lytic lesions of the skull and right iliac bone. COMPARISON: Head CT from 05/24/2016. Chest abdomen and pelvis study from the same date. TECHNIQUE: 18 images of the axial and appendicular skeleton. FINDINGS: Frontal view of the chest demonstrates mild interstitial prominence in the lungs. These are more completely evaluated on the recent prior CT. No gross osseous abnormality of the ribs. Lateral view of the skull demonstrates multiple lucent lesions throughout the calvarium, corresponding to the appearance on the prior CT. Lateral view of the cervical spine demonstrates no focal osseous lesion. Mild degenerative changes. 2 views of the thoracic spine demonstrate mild scoliotic curvature. No focal osseous lesions are identified. 2 views of the lumbar spine demonstrate no focal osseous lesions. The bones are osteopenic. Mild degenerative changes. Frontal view of the pelvis demonstrates multiple small lucent lesions throughout the entire pelvis and in the proximal femora bilaterally. This corresponds to the appearance on the prior CT. Single view of each humerus demonstrate small lucencies scattered in both humeral diaphyses. Anatomic alignment at the shoulder and elbow bilaterally. Single view of each forearm demonstrates small lucent foci within the radius bilaterally. Degenerative changes are seen at both wrists and elbows with chondrocalcinosis present. Frontal view of the right femur demonstrates multiple lucent lesions throughout the length of the femur. Single view of the right tibia/fibula demonstrate no definite lesions. Degenerative changes of the knee. Frontal view of the left femur demonstrates multiple lucent lesions throughout the length of the femur. Frontal view of the left tibia/fibula demonstrates no definite lesions. Degenerative changes of the knee. IMPRESSION: Extensive lucent lesions throughout the osseous structures, most prominently affecting the skull, pelvis, and extremities. Findings are suspicious for multiple myeloma versus metastatic disease.
[2016-05-25 16:03] VITALS: BP 100/52
--- NOTE | 2016-05-25 16:04 | NUR ---
1600 PT HAS A URPE ORDERED, CONFIRMED WITH THE LAB THAT A 24 HOUR URINE IS NECESSARY. ORDER OBTAINED FOR A GUERRA FROM LYE MACHINE OPERATOR MATTHEW AGGARWAL, DUE TO INCONTINENCE. RESISTANCE AND PAIN WAS ENCOUNTERED WITH ADVANCEMENT OF THE GUERRA UNDER STERILE TECHNIQUE . LYE MACHINE OPERATOR MATTHEW AGGARWAL NOTIFIED.
--- NOTE | 2016-05-25 16:54 | NUR ---
1640 CUDEE TIP GUERRA CATHETER OBTAINED WITH ARANZA BRADLEY AT BEDSIDE. IIKYRA AGGARWAL NOTIFIED. GUERRA BAG MAINTAINED ON ICE FOR 24 HOUR COLLECTION.
--- NOTE | 2016-05-25 19:02 | Cons- Hematology ---
General Information and HPI Consulting Request Date of Consult: 05/25/16 Requested By: NORI GARZA MD Reason for Consult: concern for myeloma Source of Information: patient, old records Exam Limitations: clinical condition, poor historian History of Present Illness: Mr. Nice is 85-year-old male with history of BPH s/p TURP who presented to the hospital with generalized weakness. History was limited due to patient refusing to answer questions and examination. History obtained to medical record mostly. He has been having progressive generalized weakness of the past month. He has been losing weight over the past 1 year. His and son took him to the ED because he was found very weak and had urinary incontinence. The patient has been progressively feeling weak since a flu vaccination 4 weeks ago. He has had worsening shortness of breath, night sweats, and appetite with poor oral intake. Patient was still able to drive until last weekend. Patient has been more irritable. Per history, he is a previous smoker. He drinks alcohol occasionally. He currently denies any pain. Allergies/Medications Allergies: Coded Allergies: NO KNOWN ALLERGIES (05/24/16) Home Med List: Budesonide/Formoterol Fumarate (Symbicort 160-4.5 Mcg Inhaler) 160 MCG-4.5 MCG/ ACTUATION HFA.AER.AD COPD (Reported) Tiotropium [place] (Spiriva) 18 MCG CAP.W.DEV SOB (Reported) Current Medications: Current Medications Sig/Dominique Start time Last Medication Dose Route Stop Time Status Admin Acetaminophen 650 MG Q6P PRN 05/24 2345 AC PO Alendronate Sodium 70 MG QFRI@0700 05/26 0700 PO Alendronate Sodium 70 MG QTHURS 05/25 1145 ME PO Heparin Sodium 5,000 UNIT Q8 05/25 0600 AC 05/25 (Porcine) SC 1607 Morphine Sulfate 2 MG Q8P PRN 05/24 234 AC IV Pneumococcal 0.5 ML 1000 05/25 1000 DC 05/25 Polyvalent Vaccine IM 05/25 1001 0824 Sodium Chloride 1,000 ML Q8H 05/24 2345 AC 05/25 IV 1649 Sodium Chloride 1,000 ML BOLUS ONE 05/24 1915 DC 05/24 IV 05/24 Tramadol HCl 25 MG Q12P PRN 05/24 2345 AC PO Review of Systems Review of Systems: Limited due to patient's uncooperation. Review of Systems Constitutional: Reports: weakness, unexplained weight loss. Denies: chills, fever. Cardiovascular: Denies: chest pain. Respiratory: Reports: short of breath. Musculoskeletal: Denies: back pain, joint pain, muscle pain. All Other Systems: Reviewed and Negative Past History Travel History Traveled to [place] past 21 day No Medical History Blood Transfusion Hx: No Neurological: NONE EENT: NONE Cardiovascular: NONE Respiratory: chronic cough Gastrointestinal: NONE Hepatic: NONE Renal: benign prost hyperplasia Musculoskeletal: NONE Psychiatric: NONE Endocrine: NONE Blood Disorders: NONE Cancer(s): NONE TUNNEL MINER/Reproductive: NONE Surgical History Surgical History: TURP Psychosocial History Where Do You Live? Home Who Do You Live With? spouse Services at Home: None Primary Language: Macedonian Smoking Status: Former Smoker ETOH Use: denies use Illicit Drug Use: denies illicit drug use Employment History Employment: Retired Profession/Employer: [employer] Exam & Diagnostic Data Vital Signs and I&O Vital Signs Date Time Temp Pulse Resp B/P Pulse O2 O2 Flow FiO2 Ox Delivery Rate 05/25 1603 97.8 54 19 100/52 95 05/25 0824 98.4 05/25 0803 98.0 80 20 120/60 95 Room Air 05/24 2250 97.4 82 18 118/58 94 Room Air 05/24 2230 Room Air 05/24 2224 80 16 116/67 94 Room Air 05/24 2026 97.2 86 18 132/72 92 Room Air Intake & Output 05/25 1600 05/25 0800 05/25 0000 Intake Total 1800 1600 Output Total 960 300 200 Balance 840 -300 1400 Intake, IV 1600 Intake, Oral 1800 Output, Urine 960 300 200 Physical Exam General Appearance: cachetic, lethargic Head: atraumatic Other Physical Findings: limited, patient refused to be examinated Last 48 Hours of Lab Results: Laboratory Tests 05/25 05/25 05/24 0655 0655 2132 Chemistry Sodium (137 - 145 mmol/L) 142 Potassium (3.5 - 5.1 mmol/L) 4.2 Chloride (98 - 107 mmol/L) 107 Carbon Dioxide (22 - 30 mmol/L) 33 H Anion Gap (5 - 16) 2 L BUN (9 - 20 mg/dL) 22 H Creatinine (0.7 - 1.2 mg/dL) 0.9 Estimated GFR (>60 ml/min) > 60 BUN/Creatinine Ratio (7 - 25 %) 24.4 Lactic Acid (0.7 - 2.1 mmol/L) 1.1 2.3 H Calcium (8.4 - 10.2 mg/dL) 12.3 H Lactate Dehydrogenase (313 - 618 U/L) 325 Prot Electrophoresis Pending Total Protein (PEP) Pending Albumin % (PEP) Pending Zkvce-7-Cllhkjplj Pending Mudfo-3-Pmrppglwh Pending Cmnb-2-Nfrvfbvs Pending Tegs-7-Pdpupqsu Pending Gamma Globulins Pending Abnorm Protein Band 1 Pending Abnorm Protein Band 2 Pending Abnorm Protein Band 3 Pending Vit D 1,25-Dihyd Total Pending 1,25 Dihydroxy Vit D2 Pending 1,25 Dihydroxy Vit D3 Pending Hematology CBC w Diff NO MAN DIFF REQ WBC (4.8 - 10.8 /CUMM) 12.2 H RBC (4.70 - 6.10 /CUMM) 3.74 L Hgb (14.0 - 18.0 G/DL) 12.0 L Hct (42 - 52 %) 35.3 L MCV (80.0 - 94.0 FL) 94.2 H MCH (27.0 - 31.0 PG) 32.0 H RDW (11.5 - 14.5 %) 13.5 Plt Count (130 - 400 /CUMM) 277 MPV (7.4 - 10.4 FL) 8.9 Gran % (42.2 - 75.2 %) 81.9 H Lymphocytes % (20.5 - 51.1 %) 10.0 L Monocytes % (1.7 - 9.3 %) 7.5 Eosinophils % (0 - 5 %) 0.2 Basophils % (0.0 - 2.0 %) 0.4 Absolute Granulocytes (1.4 - 6.5 /CUMM) 10.0 H Absolute Lymphocytes (1.2 - 3.4 /CUMM) 1.2 Absolute Monocytes (0.10 - 0.60 /CUMM) 0.9 H Absolute Eosinophils (0.0 - 0.7 /CUMM) 0 Absolute Basophils (0.0 - 0.2 /CUMM) 0 PUBS MCHC (33.0 - 37.0 G/DL) 34.0 1205/24 171 Chemistry Lactic Acid (0.7 - 2.1 mmol/L) 2.2 H Creatine Kinase (55 - 170 U/L) 34 L Urines Urinalysis LIGHT H Urine Color (YEL,AMB,STR) YEL Urine Clarity (CLEAR) CLEAR Urine pH (5.0 - 8.0) 7.0 Ur Specific [place] (1.001 - 1.035) 1.015 Urine Protein (NEG,<30 MG/DL) NEG Urine Ketones (NEG) NEG Urine Nitrite (NEG) NEG Urine Bilirubin (NEG) NEG Urine Urobilinogen (0.1 - 1.0 EU/dl) 0.2 Ur Leukocyte Esterase (NEG) NEG Ur Microscopic SEDIMENT EXAMINED Urine RBC (0 - 5 /HPF) 1-3 Urine WBC (0 - 2 /HPF) RARE Ur Epithelial Cells (NONE,FEW) FEW Urine Hemoglobin (NEG) TRACE-INTACT H Urine Glucose (N MG/DL) NEG 05/24 1713 Chemistry Sodium (137 - 145 mmol/L) 136 L Potassium (3.5 - 5.1 mmol/L) 4.9 Chloride (98 - 107 mmol/L) 97 L Carbon Dioxide (22 - 30 mmol/L) 35 H Anion Gap (5 - 16) 5 BUN (9 - 20 mg/dL) 31 H Creatinine (0.7 - 1.2 mg/dL) 1.0 Estimated GFR (>60 ml/min) > 60 BUN/Creatinine Ratio (7 - 25 %) 31.0 H Glucose (65 - 99 mg/dL) 121 H Calcium (8.4 - 10.2 mg/dL) 13.9 H Total Bilirubin (0.2 - 1.3 mg/dL) 0.9 AST (17 - 59 U/L) 22 ALT (21 - 72 U/L) 20 L Alkaline Phosphatase (< 127 U/L) 116 Troponin I (<0.11 ng/ml) < 0.01 Total Protein (6.3 - 8.2 g/dL) 11.2 H Albumin (3.5 - 5.0 g/dL) 3.9 Globulin (1.9 - 4.2 gm/dL) 7.3 H Albumin/Globulin Ratio (1.1 - 2.2 %) 0.5 L TSH (0.270 - 4.200 uIU/mL) 2.820 Free T4 (0.85 - 1.93 ng/dL) 1.37 PTH Intact (13.8 - 85 pg/ml) < 6.3 L Coagulation PT (9.4 - 12.5 SEC) 11.8 INR (0.90 - 1.17) 1.13 APTT (25 - 37 SEC) 28 Hematology CBC w Diff NO MAN DIFF REQ WBC (4.8 - 10.8 /CUMM) 13.8 H RBC (4.70 - 6.10 /CUMM) 4.74 Hgb (14.0 - 18.0 G/DL) 15.0 Hct (42 - 52 %) 44.6 MCV (80.0 - 94.0 FL) 94.0 MCH (27.0 - 31.0 PG) 31.7 H RDW (11.5 - 14.5 %) 13.6 Plt Count (130 - 400 /CUMM) 290 MPV (7.4 - 10.4 FL) 8.2 Gran % (42.2 - 75.2 %) 82.6 H Lymphocytes % (20.5 - 51.1 %) 11.2 L Monocytes % (1.7 - 9.3 %) 5.2 Eosinophils % (0 - 5 %) 0.2 Basophils % (0.0 - 2.0 %) 0.8 Absolute Granulocytes (1.4 - 6.5 /CUMM) 11.4 H Absolute Lymphocytes (1.2 - 3.4 /CUMM) 1.5 Absolute Monocytes (0.10 - 0.60 /CUMM) 0.7 H Absolute Eosinophils (0.0 - 0.7 /CUMM) 0 Absolute Basophils (0.0 - 0.2 /CUMM) 0.1 PUBS MCHC (33.0 - 37.0 G/DL) 33.7 Imaging/Other Studies: CT head, chest, abdomen, pelvis without contrast 05/24/2016: 1. No acute intracranial pathology. 2. Moderate microvascular ischemic disease. 3. Multiple lucencies within the skull base and calvarium. Differential possibility includes severe bony demineralization versus lytic metastases. 4. Subpleural irregular density right lower lobe most likely represents scarring. Comparison to prior CT chest if available is recommended. In the absence of previous examinations, monitoring may be of value. Bronchial wall thickening and possible mucous plugging bilateral lower lobes. 5. No gross evidence of mass within abdomen or pelvis on the noncontrast images. No gross lymphadenopathy. 6. Nonobstructing calculi right kidney. 7. Abnormal lucency right iliac bone. Lytic osseous lesion cannot be excluded.. Skeletal survey 05/25/2016: Extensive lucent lesions throughout the osseous structures, most prominently affecting the skull, pelvis, and extremities. Findings are suspicious for multiple myeloma versus metastatic disease. Assessment/Plan Assessment: Mr. Nice is an 85-year-old with history of BPH s/p TURB who presents with significant weakness, weight loss, and decondition. He is cachetic on examination. He has still able to drive up until last week. On admission he was noted to have elevated calcium at 13.9, elevate total protein at 11.2, albumin at 3.9, and low PTH. His creatinine and hemoglobin are normal. CT imaging noted some lytic bone lesions. These are concerning for multiple myeloma. He was started on IVF on admission. SPEP and UPEP were sent. Skeletal survey was done and noted numerous bone lesions concerning for multiple myeloma. Currently patient seem to have at least a performance status of 3. He should have complete evaluation for MM given lytic lesion and protein gap. Given symptomatic with hypercalcemia, he should have this treated with bisphosphate, IVF, and consider calcitonin for the acute setting. Recommendations: 1. Follow up SPEP and UPEP 2. Check serum free light chains (kappa and lambda) 3. Check serum immunofixation 4. Check beta-2 microglobulin 5. Check serum immunoglobulin level (IgA, IgG, IgM) 6. Bisphosphate for hypercalcemia (Zoledronic acid, pamidronate are preferred) 7. Continue IVF Problem List: 1. Failure to thrive 2. Hypercalcemia 3. Multiple falls Other Findings/Comments: Please call [phone] with any questions or concerns. Consult Acknowledgment - Thank you for your consult request.
--- NOTE | 2016-05-25 20:52 | NUR ---
PT A&0X2 OFF ON TIME, CALL LIGHT WITHIN REACH, BED ALARM ON HX FALLS, #22 LF 05/25 IVF, GUERRA BAG ON ICE FOR URINE COLLECTION, NO DISTRESS NOTED WILL MONITOR.
[2016-05-25 23:40] VITALS: BP 110/52
--- NOTE | 2016-05-26 07:00 | PN- Housestaff ---
Subjective Follow-up For: likely multiple myeloma hypercalcemia Subjective: pt received 1 time pamidronate yesterday, did not get alendronate. consider calcitonin for hypercalcemia. continue aggressive fluids. labs this morning pending. we are rechecking his ca level pt wanted to be left alone this morning. pt was asleep but easily arousable. irritable at times, refusing to answer qns and to be examined. he was refusing bone marrow biopsy and possible chemo. he has coude catheter to collect 24 hr urine and pt incontinent. Review of Systems Constitutional: Reports: see HPI. Objective Last 24 Hrs of Vital Signs/I&O Vital Signs Date Time Temp Pulse Resp B/P Pulse O2 O2 Flow FiO2 Ox Delivery Rate 05/26 0813 98.2 71 20 100/50 94 Room Air 05/25 2340 97.6 59 20 110/52 93 05/25 2150 Room Air 05/25 1603 97.8 54 19 100/52 95 Intake & Output 05/26 1600 05/26 0800 05/26 0000 Intake Total 1260 435 Output Total Balance 1260 435 Intake, IV 1200 375 Intake, Oral 60 60 Physical Exam General Appearance: Alert, Cooperative, No Acute Distress, cachectic Skin: No Significant Lesion HEENT: Atraumatic, PERRLA Neck: Supple Cardiovascular: Regular Rate, Normal S1, Normal S2, No Murmurs, Gallops, Rubs Lungs: Clear to Auscultation, Normal Air Movement Abdomen: Normal Bowel Sounds, Soft, No Tenderness Extremities: No Edema Current Medications: Current Medications Sig/Dominique Start time Last Medication Dose Route Stop Time Status Admin Acetaminophen 650 MG Q6P PRN 05/24 2345 AC PO Albuterol Sulfate 3 ML Q4P PRN 05/25 2200 AC INH Alendronate Sodium 70 MG QFRI@0700 05/26 0700 CAN PO Alendronate Sodium 70 MG QTHURS 05/25 1145 DC PO Heparin Sodium 5,000 UNIT Q8 05/25 0600 AC 05/26 (Porcine) SC 0638 Morphine Sulfate 2 MG Q8P PRN 05/24 2345 AC IV Pamidronate Disodium 60 MG ONE ONE 05/25 2100 DC 05/25 Dextrose/Water 1,000 ML IV 05/26 0459 2207 Pneumococcal 0.5 ML 1000 05/25 1000 DC 05/25 Polyvalent Vaccine IM 05/25 1001 0824 Sodium Chloride 1,000 ML Q8H 05/24 2345 AC 05/26 IV 0639 Tramadol HCl 25 MG Q12P PRN 05/24 2345 AC PO Assessment/Plan Assessment: Mr. Nice is 85-year-old male with chief complaint of generalized weakness for 4 weeks. PMH of BPH s/p TURP 2 time last was 2 years ago. He has significant history of nonproductive cough and weight loss over a course of 1 year. Patient was brought to ED by his and son because he was found very weak and had urinary incontinence for the first time on day of admission . Coude catheter day #2 Problem list # Possible multiple myeloma: hypercalcemia, low PTH, weakness, cachexia, dehydration # Chronic history of nonproductive cough # Possible multiple myeloma: hypercalcemia, low PTH, weakness, cachexia - Discussed with Dr. Novak - ldh 325 - ca 13.9 to 12.3 - la 2.3 --> 1.1 - total protein 11.2. total albumin 3.9. - ck 34 - The patient reported history of weight loss course of 1 year and recent history of poor oral intake, night sweats, progressive weakness - Lab results are significant for metabolic acidosis, increased BUN, creatinine of 1 that doesn't correlate with the patient's muscle mass, high total protein of 11.2 with significant globulin 7.3, low parathyroid hormone, hypercalcemia - Imaging: Multiple lucencies within the skull base and calvarium. Differential possibility includes severe bony demineralization versus lytic metastases.Abnormal lucency right iliac bone. Lytic osseous lesion cannot be excluded. * follow skeletal survey: Extensive lucent lesions throughout the osseous structures, most prominently affecting the skull, pelvis, and extremities. Findings are suspicious for multiple myeloma versus metastatic disease. * pending b2 microglobulin, immunoglobulin level inc igg, igm, iga, immunofixation, serum free light chain. urine protein electrophoresis and serum protein electrophoresis. pth-rp. as some of these tests are send-outs, it might take 4-5 days to obtain the results. * Appreciate heme onc input * Consider serum and urine flow cytometry * Serum protein electrophoresis with immunofixation, serum free monoclonal light chain analysis * Monitor lactic acid, creatinine, albumin, calcium, C-reactive protein and beta 2 microglubin * Peripheral blood smear * Continue aggressive rehydration with normal saline 150 mL/h * we will obtain nutritional and pt consult * pp: oral tylenol, tramadol 25 q12p, morphine 2q8p * pt refused bone marrow biopsy and chemo * might be candidate for steroids # Hypercalcemia - his hypercalcemia improved with ivf 150ml/hr, went from 13.9 to 12.3. his albumin is 3.9 . - family reports that he has been more angry and yelling at them lately. - pth < 6.3 L - on admssion bun/cr 31/1 (pt very cachectic) and appears dehydrated * given pamidronate 60mg X 1 on 05/25/16 # Chronic history of nonproductive cough - Patient has history of heavy smoking for over 40 years, quit 10 years ago - History of chronic cough over one year nonproductive associated with shortness of breath -CT chest shows subpleural irregular density right lower lobe most likely represents scarring. Comparison to prior CT chest if available is recommended. In the absence of previous examinations, monitoring may be of value. Bronchial wall thickening and possible mucous plugging bilateral lower lobes. * Consider pulmonary function test * TRC evaluation Diet: regular DVT prophylaxis: subcutaneous heparin and alps FULL CODE Problem List: 1. Hypercalcemia 2. Lytic bone lesions on xray 3. Failure to thrive Pain Ratin Pain Location: none Pain Goal: Remain pain free Pain Plan: none Tomorrow's Labs & Rationales: bep for lambert ca for hyperca cbc for leukocytosis DVT/Prophylaxis: mechanical, pharmacological
[2016-05-26 08:13] VITALS: BP 100/50
[2016-05-26 10:00] LABS: ABSOLUTE BASOPHIL COUNT 0.1 /CUMM (0.0-0.2); ABSOLUTE EOSINOPHIL COUNT 0.1 /CUMM (0.0-0.7); ABSOLUTE GRANULOCYTE CT 8.9 /CUMM (1.4-6.5); ABSOLUTE LYMPH COUNT 1.3 /CUMM (1.2-3.4); ABSOLUTE MONOCYTE COUNT 0.8 /CUMM (0.10-0.60); BASOPHIL % 0.8 % (0.0-2.0); EOSINOPHIL % 0.6 % (0-5); MEAN CORPUSCULAR HGB 31.9 PG (27.0-31.0); MEAN CORPUSCULAR HGB CONC 33.7 G/DL (33.0-37.0); MEAN CORPUSCULAR VOLUME 94.8 FL (80.0-94.0); MEAN PLATELET VOLUME 8.7 FL (7.4-10.4); PLATELET COUNT 248 /CUMM (130-400); RBC DISTRIBUTION WIDTH 13.3 % (11.5-14.5); RED BLOOD CELL CT 3.48 /CUMM (4.70-6.10); WHITE BLOOD CELL COUNT 11.1 /CUMM (4.8-10.8)
--- NOTE | 2016-05-26 11:05 | PN- Hematology ---
See Addendum Subjective Subjective: Again, he refused to be examined. He refused to answer any questions. Review of Systems: Unable to obtain due to mental status and non-cooperation. Objective Vital Signs and I&Os Vital Signs Date Time Temp Pulse Resp B/P Pulse O2 O2 Flow FiO2 Ox Delivery Rate 05/26 08 98.2 71 20 100/50 94 Room Air 05/25 2340 97.6 59 20 110/52 93 05/25 2150 Room Air 05/25 1603 97.8 54 19 100/52 95 Intake & Output 05/26 1600 05/26 0800 05/26 0000 05/25 1600 05/25 0800 05/25 0000 Intake Total 0732 558 7186 1600 Output Total 960 300 200 Balance 1260 435 840 -300 1400 Intake, IV 6441 599 3414 Intake, Oral 60 60 1800 Output, Urine 960 300 200 Physical Exam: Patient refused to be examined. Irritable. Not in acute distress. Current Medications: Current Medications Sig/Dominique Start time Last Medication Dose Route Stop Time Status Admin Acetaminophen 650 MG Q6P PRN 05/24 2345 AC PO Albuterol Sulfate 3 ML Q4P PRN 05/25 2200 AC INH Alendronate Sodium 70 MG QFRI@0700 05/26 0700 CAN PO Alendronate Sodium 70 MG QTHURS 05/25 1145 DC PO Heparin Sodium 5,000 UNIT Q8 05/25 0600 AC 05/26 (Porcine) SC 0638 Morphine Sulfate 2 MG Q8P PRN 05/24 2345 AC IV Pamidronate Disodium 60 MG ONE ONE 05/25 2100 DC 05/25 Dextrose/Water 1,000 ML IV 05/26 0459 2207 Sodium Chloride 1,000 ML Q8H 05/24 2345 AC 05/26 IV 0639 Tramadol HCl 25 MG Q12P PRN 05/24 2345 AC PO Results Last 24 Hours of Lab Results: Laboratory Tests 05/26 05/26 0920 0835 Chemistry Sodium (137 - 145 mmol/L) 135 L Potassium (3.5 - 5.1 mmol/L) 3.8 Chloride (98 - 107 mmol/L) 102 Carbon Dioxide (22 - 30 mmol/L) 30 Anion Gap (5 - 16) 3 L BUN (9 - 20 mg/dL) 13 Creatinine (0.7 - 1.2 mg/dL) 0.8 Estimated GFR (>60 ml/min) > 60 BUN/Creatinine Ratio (7 - 25 %) 16.3 Calcium (8.4 - 10.2 mg/dL) 11.2 H 11.3 H Hematology CBC w Diff NO MAN DIFF REQ WBC (4.8 - 10.8 /CUMM) 11.1 H RBC (4.70 - 6.10 /CUMM) 3.48 L Hgb (14.0 - 18.0 G/DL) 11.1 L Hct (42 - 52 %) 33.0 L MCV (80.0 - 94.0 FL) 94.8 H MCH (27.0 - 31.0 PG) 31.9 H RDW (11.5 - 14.5 %) 13.3 Plt Count (130 - 400 /CUMM) 248 MPV (7.4 - 10.4 FL) 8.7 Gran % (42.2 - 75.2 %) 80.0 H Lymphocytes % (20.5 - 51.1 %) 11.6 L Monocytes % (1.7 - 9.3 %) 7.0 Eosinophils % (0 - 5 %) 0.6 Basophils % (0.0 - 2.0 %) 0.8 Absolute Granulocytes (1.4 - 6.5 /CUMM) 8.9 H Absolute Lymphocytes (1.2 - 3.4 /CUMM) 1.3 Absolute Monocytes (0.10 - 0.60 /CUMM) 0.8 H Absolute Eosinophils (0.0 - 0.7 /CUMM) 0.1 Absolute Basophils (0.0 - 0.2 /CUMM) 0.1 PUBS MCHC (33.0 - 37.0 G/DL) 33.7 Assessment/Plan Assessment/Recommendations: Mr. Nice is an 85-year-old with history of BPH s/p TURB who presents with significant weakness, weight loss, and decondition. He is cachetic on examination. He has still able to drive up until last week. On admission he was noted to have elevated calcium at 13.9, elevate total protein at 11.2, albumin at 3.9, and low PTH. His creatinine and hemoglobin are normal. CT imaging noted some lytic bone lesions. These are concerning for multiple myeloma. He was started on IVF on admission. SPEP and UPEP were sent. Skeletal survey was done and noted numerous bone lesions concerning for multiple myeloma. Calcium was elevated. Pamidronate 60 mg was given once with calciumat 12.3. With his mental status, it is concerning that this may be due to hypercalcemia. Hopefully the correction of this will improve his symptoms. Currently patient seem to have at least a performance status of 3. He currently has refused possible further work up with marrow if needed and chemotherapy if needed. Recommendations: 1. Follow up SPEP, UPEP, serum free light chains (kappa and lambda), serum immunofixation, beta-2 microglobulin, and serum immunoglobulin level (IgA, IgG, IgM) 2. Continue IVF Please call [phone] with any questions or concerns. Problem List: 1. Lytic bone lesions on xray 2. Failure to thrive 3. Hypercalcemia 4. Weakness
--- NOTE | 2016-05-26 13:25 | NUR ---
NURSING NOTE: PATIENT FOUND TO BE AGITATED AND ATTEMPTING TO GET OOB, PULLED OUT IV LINE, AND ALSO PULLING ON GUERRA. PT AMBULATED TO [facility] #136 CAME TO BEDSIDE TO ASSESS PT. PT CONTINUES TO REFUSE TO HAVE ANOTHER IV PLACED AND REFUSING MEALS. PATIENT SAFETY MONITOR ORERED AND BED ALARM REMAINS IN PLACE.
--- NOTE | 2016-05-26 15:00 | NUR ---
NURSING NOTE: PT REFUSED BREAKFAST AND LUNCH TODAY. WHEN PT SON CAME IN HE TALKED PT INTO TRYING TO EAT. PT WAS NOTED TO COUGH AFTER EACH BIT/DRINK. [facility] #[id number] AT BEDSIDE AND PT MADE NPO. A SWALLOW EVAL AND CHEST XRAY WERE ORDRED. WILL CONTINUE TO MONITOR.
--- NOTE | 2016-05-26 15:04 | NUR ---
PHYSICAL THERAPY- CONSULT RECEIVED, CHART REVIEWED. PT AGITATED, REFUSING MANY ASPECTS OF CARE, AND W/ MULTIPLE BONY LUCENCIES ON IMAGING ?MULTIPLE MYELOMA vs METASTASIS. REQUESTED CLARIFICATION OF POSSIBLE WEIGHT BEARING RESTRICTIONS 2* B FEMORAL LUCENCIES. WILL FOLLOW WHEN INFO RECEIVED FROM HEM/ONC OR ORTHO APPROPRIATE.
[2016-05-26 15:40] VITALS: BP 130/58
--- NOTE | 2016-05-26 16:03 | PN- Att Addend ---
Attending MD Review Statement Attending Statement Attending MD Statement: examined this patient, discuss w/resident/PA/CNC MANAGER, agreed w/resident/PA/CNC MANAGER, reviewed EMR data (avail), discussed w/nursing, discussed w/ case mgmt Attending Assessment/Plan: Acute hypercalcemia related to likely multiple myeloma. Some workup pending. Cont with iv hydration and also was given iv bisphosphonates. Swallowing difficulty- will get swallow eval Hypoxic on Room Air, will get chest xray and start on abx for possible aspiration pneumonia.
--- NOTE | 2016-05-26 17:08 | RADIOLOGY REPORT ---
EXAMINATION: XR PORTABLE CHEST CLINICAL INFORMATION: Increasing oxygen requirement. Choking while eating. Evaluate for aspiration pneumonitis. COMPARISON: CT chest without contrast 05/24/2016. TECHNIQUE: Portable view of the chest was obtained. FINDINGS: Limited exam secondary to partial exclusion of the left costophrenic angle as well as patient positioning. The lungs appear hyperinflated. Within the imaged portions of the bilateral lungs, there are subtle patchy airspace opacities in the region of the right middle lobe and the right lung base. No large right-sided pleural effusions are identified and there are no visible apical pneumothoraces. Cardiomediastinal contours are within normal limits. Soft tissues appear unremarkable. No acute osseous abnormality. IMPRESSION: Limited exam secondary to partial exclusion of the left costophrenic angle and left lung base. Ill-defined airspace opacities within the right middle lobe and right lung base are nonspecific but could reflect aspiration pneumonitis or developing infection. Consider repeat chest x-ray given exam limitations. A PA and lateral chest x-ray would be helpful.
--- NOTE | 2016-05-26 17:24 | Event Note ---
Event Note Event Note: Pt was agitated this afternoon and pulled out his IV around 2pm. He has not been taking any meds PO or eating today. He refused to have IV because it was bruising him. Pt was also trying to have a bowel movement but unsuccessful. I noted blood streak in the toilet bowl without stool, he appears to be straining very hard. he agreed to getting suppository. His zimmer also has some blood. We ordered patient safety monitor on him due to agitation and fall risk ( weakness, lytic lesions in the femur). When pt was less agitated, he was crying and shaking in frustration. His son and arrived. His son was very distraught about him not having an IV line and not getting IV fluids, saying "dad, you can't do this to me". He convinced him to get an IV line and to eat his lunch. Pt was coughing aggressively and pretty clear that he was aspirating. MEDICAL DELIVERY DRIVER evaluated him for swallow evaluation, and recommended NPO. His son is distraught that he is not going to eat, I explained to him that he will get nutrients through his IV. His son wants tube feeding, I explained that it will still pose an aspiration risk. We will put him NPO, and change his fluids to D5NS @ 100ml/hr. His swallowing is probably not going to improve over the weekend, but if needed, please re-order repeat swallow evaluation, or assess at bedside. As he is needing O2 now, we got CXR to evaluate for aspiration PNA and started him on clindamycin as per Dr. Bonner. I have discussed the code status with the patient and his family, and they still want to be FULL CODE. His son is very upset that the pt is refusing bone marrow biopsy and chemotherapy. I explained to him that the pt is still able to make his own decisions and we should respect that. His son keeps insisting that pt is not in "his right state of mind" and he "should make the decisions". Of note, his son is not his healthcare proxy. His is demented and cannot offer helpful information. Pt would like to go home. His son also wants to take him home but very concerned that he cannot adequately care for him. We will have hospice evaluate him tomorrow. We also obtained social work consult as the patient and family seems to be having a hard time coping with his likely diagnosis, and prognosis.
[2016-05-26 23:50] VITALS: BP 107/54
[2016-05-27 06:58] VITALS: BP 120/72
[2016-05-27 08:00] LABS: ABSOLUTE BASOPHIL COUNT 0 /CUMM (0.0-0.2); ABSOLUTE EOSINOPHIL COUNT 0 /CUMM (0.0-0.7); ABSOLUTE GRANULOCYTE CT 8.9 /CUMM (1.4-6.5); ABSOLUTE LYMPH COUNT 0.4 /CUMM (1.2-3.4); ABSOLUTE MONOCYTE COUNT 0.4 /CUMM (0.10-0.60); BASOPHIL % 0.2 % (0.0-2.0); EOSINOPHIL % 0 % (0-5); HEMATOCRIT 31.2 % (42-52); MEAN CORPUSCULAR HGB 31.8 PG (27.0-31.0); MEAN CORPUSCULAR HGB CONC 33.4 G/DL (33.0-37.0); MEAN CORPUSCULAR VOLUME 95.1 FL (80.0-94.0); MEAN PLATELET VOLUME 8.8 FL (7.4-10.4); RBC DISTRIBUTION WIDTH 13.3 % (11.5-14.5); RED BLOOD CELL CT 3.28 /CUMM (4.70-6.10); WHITE BLOOD CELL COUNT 9.8 /CUMM (4.8-10.8)
[2016-05-27 09:13] LABS: GRANULOCYTE % 91.2 % (42.2-75.2); PLATELET COUNT 219 /CUMM (130-400)
--- NOTE | 2016-05-27 10:02 | PN- Housestaff ---
MANSI GUTIERREZ,MIGUEL 05/27/16 0955: Subjective Follow-up For: Aspiration pneumonitis Hypercalcemia Subjective: Saw patient at bedside the same. No acute overnight events. No complaints. Patient satting 93% on 2 L nasal cannula. Of note yesterday he was satting 97. We'll continue to monitor his astray status. He is currently nothing by mouth. Review of Systems Constitutional: Reports: no symptoms. Objective Last 24 Hrs of Vital Signs/I&O Vital Signs Date Time Temp Pulse Resp B/P Pulse O2 O2 Flow FiO2 Ox Delivery Rate 05/27 1244 94 Room Air 05/27 0800 93 Nasal 2.0L Cannula 05/27 0658 98.2 65 20 120/72 93 05/27 0000 Nasal 2.0L Cannula 05/26 2350 98.2 108 18 107/54 97 Nasal 2.0L Cannula 05/26 1600 92 Nasal 2.0L Cannula 05/26 1540 97.8 104 18 130/58 92 Intake & Output 05/27 1600 05/27 0800 05/27 0000 Intake Total 810 530 Output Total 550 650 Balance 260 -120 Intake, IV 800 400 Intake, Oral 10 130 Output, Urine 550 650 Physical Exam General Appearance: Alert, No Acute Distress Skin: No Significant Lesion HEENT: Atraumatic, PERRLA, EOMI Cardiovascular: Regular Rate, No Murmurs Lungs: Clear to Auscultation, Normal Air Movement Abdomen: Soft, No Tenderness Current Medications: Current Medications Sig/Dominique Start time Last Medication Dose Route Stop Time Status Admin Acetaminophen 650 MG Q6P PRN 05/24 2345 AC PO Albuterol Sulfate 3 ML Q4P PRN 05/25 2200 AC INH Bisacodyl 10 MG ONCE ONE 05/26 1330 DC 05/26 AR 05/26 1331 1329 Clindamycin 600 MG IQ8 05/26 1615 AC 05/27 Dextrose/Water 50 ML IV 0741 Dextrose/Sodium 1,000 ML Q10H 05/26 1730 DC 05/27 Chloride IV 0026 Docusate Sodium 100 MG BID PRN 05/26 1330 AC PO Heparin Sodium 5,000 UNIT Q8 05/25 0600 AC 05/27 (Porcine) SC 0535 Morphine Sulfate 2 MG Q8P PRN 05/24 2345 AC IV Olanzapine 5 MG ONCE ONE 05/26 1330 CAN IM 05/26 1331 Patient Medication 1 ED ONE ONE 05/26 1400 DC Teaching ED 05/26 1401 Polyethylene Glycol 17 GM DAILY PRN 05/26 1330 AC PO Potassium Chloride 40 MEQ Q13H 05/27 1145 AC Dextrose/Sodium 1,000 ML IV Chloride Senna/Docusate Sodium 2 TAB DAILY PRN 05/26 1330 AC PO Sodium Chloride 1,000 ML Q8H 05/24 2345 DC 05/26 IV 0639 Tramadol HCl 25 MG Q12P PRN 05/24 2345 AC PO Last 24 Hrs of Lab/Bert Results Last 24 Hrs of Labs/Mics: Laboratory Tests 05/27/16 0700: Anion Gap 4 L, Estimated GFR > 60, BUN/Creatinine Ratio 21.4, Calcium 10.4 H, CBC w Diff NO MAN DIFF REQ, RBC 3.28 L, MCV 95.1 H, MCH 31.8 H, RDW 13.3, MPV 8.8, Gran % 91.2 H, Lymphocytes % 4.2 L, Monocytes % 4.4, Eosinophils % 0, Basophils % 0.2, Absolute Granulocytes 8.9 H, Absolute Lymphocytes 0.4 L, Absolute Monocytes 0.4, Absolute Eosinophils 0, Absolute Basophils 0, PUBS MCHC 33.4 Microbiology 05/26 175 LOWER RESP: Respiratory Culture - CAN Cancelled: SPECIMEN NOT RECEIVED IN LABORATORY 05/26 1753 LOWER RESP: Gram Stain - CAN Cancelled: SPECIMEN NOT RECEIVED IN LABORATORY Assessment/Plan Assessment: Mr. Nice is 85-year-old male with chief complaint of generalized weakness for 4 weeks. PMH of BPH s/p TURP 2 time last was 2 years ago. He has significant history of nonproductive cough and weight loss over a course of 1 year. Patient was brought to ED by his and son because he was found very weak and had urinary incontinence for the first time on day of admission . Coude catheter day #3. Pt has episode of aspiration yesterday. CXR shows signs of pneumoniits or evolving infxn. He is already empirically covered with abx. Will con't monitor and keep npo. Problem list # Possible multiple myeloma: hypercalcemia, low PTH, weakness, cachexia, dehydration # Chronic history of nonproductive cough # Possible multiple myeloma: hypercalcemia, low PTH, weakness, cachexia - Discussed with Dr. Novak - ldh 325 - ca 13.9 to 12.3--> 10.4 - la 2.3 --> 1.1 - total protein 11.2. total albumin 3.9. - ck 34 - The patient reported history of weight loss course of 1 year and recent history of poor oral intake, night sweats, progressive weakness - Lab results are significant for metabolic acidosis, increased BUN, creatinine of 1 that doesn't correlate with the patient's muscle mass, high total protein of 11.2 with significant globulin 7.3, low parathyroid hormone, hypercalcemia - Imaging: Multiple lucencies within the skull base and calvarium. Differential possibility includes severe bony demineralization versus lytic metastases.Abnormal lucency right iliac bone. Lytic osseous lesion cannot be excluded. * follow skeletal survey: Extensive lucent lesions throughout the osseous structures, most prominently affecting the skull, pelvis, and extremities. Findings are suspicious for multiple myeloma versus metastatic disease. * pending b2 microglobulin, immunoglobulin level inc igg, igm, iga, immunofixation, serum free light chain. urine protein electrophoresis and serum protein electrophoresis. pth-rp. as some of these tests are send-outs, it might take 4-5 days to obtain the results. * Appreciate heme onc input * Consider serum and urine flow cytometry * Serum protein electrophoresis with immunofixation, serum free monoclonal light chain analysis * Monitor lactic acid, creatinine, albumin, calcium, C-reactive protein and beta 2 microglubin * Peripheral blood smear * Continue aggressive rehydration with normal saline 150 mL/h * we will obtain nutritional and pt consult * pp: oral tylenol, tramadol 25 q12p, morphine 2q8p * pt refused bone marrow biopsy and chemo * might be candidate for steroids # Hypercalcemia - his hypercalcemia improved with ivf 150ml/hr, went from 13.9 to 12.3--> 10.4. his albumin is 3.9 . - family reports that he has been more angry and yelling at them lately. - pth < 6.3 L - on admssion bun/cr 31/ (pt very cachectic) and appears dehydrated * given pamidronate 60mg X 1 on 05/25/16 # Chronic history of nonproductive cough - Patient has history of heavy smoking for over 40 years, quit 10 years ago - History of chronic cough over one year nonproductive associated with shortness of breath -CT chest shows subpleural irregular density right lower lobe most likely represents scarring. Comparison to prior CT chest if available is recommended. In the absence of previous examinations, monitoring may be of value. Bronchial wall thickening and possible mucous plugging bilateral lower lobes. * Consider pulmonary function test * TRC evaluation Diet: regular DVT prophylaxis: subcutaneous heparin and alps FULL CODE Problem List: 1. Lytic bone lesions on xray 2. Multiple falls 3. Failure to thrive 4. Hypercalcemia Pain Ratin Pain Location: none Pain Goal: Remain pain free Pain Plan: none Tomorrow's Labs & Rationales: cbc bep ca NORI GARZA 05/27/16 1502: Attending MD Review Statement Attending Statement Attending MD Statement: examined this patient, discuss w/resident/PA/PAINT TESTER, agreed w/resident/PA/PAINT TESTER, reviewed EMR data (avail), discussed with nursing, discussed with case mgmt Attending Assessment/Plan: Aspiration pneumonia - pt NPO. pt very upset as he wants to eat. Will d/w family further treatment options. Speech following and will f/u on their recommendations.
[2016-05-27 16:59] VITALS: BP 110/68
[2016-05-27 23:20] VITALS: BP 121/65
--- NOTE | 2016-05-28 08:32 | PN- Housestaff ---
Subjective Follow-up For: likely multiple myeloma Subjective: pt initially refused morning labs today saying "you have got enough blood from me". he appears to be breathing comfortably on the oxygen. no longer has coughing fits. he reports feeling hungry, i did bedside swallow evaluation with thickened OJ and apple sauce and he did very well. I put diet for puree and nectar. will get formal swallow evaluation tomorrow. he was then agreeable to get his labwork done. pt was asking when the bone marrow biopsy will be done. family would also like to discuss diagnosis and prognosis with Dr. Nguyen. At this point, they are considering inpatient hospice. we are still awaiting lab results for MM workup he does not have wbc , wbc from 12.2 --> 6.8. he is on clindamycin for possible asp pna. we will consider discontinuing that. ca has improved to 10.4. k has improved from 3.4 to 4. na slightly high at 147. will change fluids to ns at 75ml/hr as pt now eating. Review of Systems Constitutional: Reports: see HPI. Objective Last 24 Hrs of Vital Signs/I&O Vital Signs Date Time Temp Pulse Resp B/P Pulse O2 O2 Flow FiO2 Ox Delivery Rate 05/28 0837 98.0 73 20 120/60 97 05/28 0800 93 Nasal 2.0L Cannula 05/27 2320 98.0 72 20 121/65 96 Nasal 2.0L Cannula 05/27 2103 96 Nasal 2.0L Cannula 05/27 1659 98.7 80 20 110/68 98 Nasal 2.0L Cannula 05/27 1600 94 Nasal 2.0L Cannula 05/27 1244 94 Room Air Intake & Output 05/28 1600 05/28 0800 05/28 0000 Intake Total 800 300 Output Total 550 575 Balance 250 -275 Intake, IV 800 300 Intake, Oral 0 Output, Urine 550 575 Physical Exam General Appearance: Alert, Oriented X3, Cooperative, No Acute Distress Skin: No Significant Lesion Cardiovascular: Regular Rate, Normal S1, Normal S2, No Murmurs, Gallops, Rubs Lungs: Clear to Auscultation, Normal Air Movement Abdomen: Normal Bowel Sounds, Soft, No Tenderness Neurological: Normal Speech Current Medications: Current Medications Sig/Dominique Start time Last Medication Dose Route Stop Time Status Admin Acetaminophen 650 MG Q6P PRN 05/24 2345 AC PO Albuterol Sulfate 3 ML Q4P PRN 05/25 2200 AC INH Clindamycin 600 MG IQ8 05/26 1615 AC 05/28 Dextrose/Water 50 ML IV 0853 Docusate Sodium 100 MG BID PRN 05/26 1330 AC PO Heparin Sodium 5,000 UNIT Q8 05/25 0600 AC 05/27 (Porcine) SC 1309 Lactobacillus 1 CAP BID 05/28 1027 AC Acidophilus PO Morphine Sulfate 2 MG Q8P PRN 05/24 2345 AC IV Polyethylene Glycol 17 GM DAILY PRN 05/26 1330 AC PO Potassium Chloride 40 MEQ Q13H 05/27 1145 DC 05/28 Dextrose/Sodium 1,000 ML IV 1009 Chloride Senna/Docusate Sodium 2 TAB DAILY PRN 05/26 1330 AC PO Sodium Chloride 1,000 ML Q13H 05/28 1230 UNVr IV Tramadol HCl 25 MG Q12P PRN 05/24 2345 AC PO Last 24 Hrs of Lab/Bert Results Last 24 Hrs of Labs/Mics: Laboratory Tests 05/28/16 1010: Anion Gap 4 L, Estimated GFR > 60, BUN/Creatinine Ratio 18.6, Calcium 10.4 H, CBC w Diff NO MAN DIFF REQ, RBC 3.80 L, MCV 94.9 H, MCH 31.7 H, RDW 13.8, MPV 8.0, Gran % 75.0, Lymphocytes % 14.2 L, Monocytes % 10.5 H, Eosinophils % 0, Basophils % 0.3, Absolute Granulocytes 5.1, Absolute Lymphocytes 1.0 L, Absolute Monocytes 0.7 H, Absolute Eosinophils 0, Absolute Basophils 0, PUBS MCHC 33.4 Assessment/Plan Assessment: Mr. Nice is 85-year-old male with chief complaint of generalized weakness for 4 weeks. PMH of BPH s/p TURP 2 time last was 2 years ago. He has significant history of nonproductive cough and weight loss over a course of 1 year. Patient was brought to ED by his and son because he was found very weak and had urinary incontinence for the first time on day of admission . Continue Coude catheter for incontinence (consider discontinuing) Continue patient safety monitor for agitation (consider discontinuing) Problem list # Possible multiple myeloma: hypercalcemia, low PTH, weakness, cachexia, dehydration # Possible Aspiration PNA # Hypokalemia resolved # Chronic history of nonproductive cough # Possible aspiration PNA - had aspiration on 05/26 while eating lunch, cxr showed signs of pneumonitis or evolving infection, pt put on NPO and clindamycin started 12/pm. - 05/28 he appears to be breathing comfortably on the oxygen. no longer has coughing fits. he reported feeling hungry, i did bedside swallow evaluation with thickened OJ and apple sauce and he did very well. I put diet for puree and nectar. - wbc from 12.2 --> 6.8 * consider discontinuing clindamycin as pt improving * reorder formal swallow evaluation for 05/29 # Possible multiple myeloma: hypercalcemia, low PTH, weakness, cachexia - Discussed with Dr. Novak - ldh 325 - ca 13.9 to 12.3--> 10.4 - la 2.3 --> 1.1 - total protein 11.2. total albumin 3.9. - ck 34 - The patient reported history of weight loss course of 1 year and recent history of poor oral intake, night sweats, progressive weakness - Lab results are significant for metabolic acidosis, increased BUN, creatinine of 1 that doesn't correlate with the patient's muscle mass, high total protein of 11.2 with significant globulin 7.3, low parathyroid hormone, hypercalcemia - Imaging: Multiple lucencies within the skull base and calvarium. Differential possibility includes severe bony demineralization versus lytic metastases.Abnormal lucency right iliac bone. Lytic osseous lesion cannot be excluded. - skeletal survey: Extensive lucent lesions throughout the osseous structures, most prominently affecting the skull, pelvis, and extremities. Findings are suspicious for multiple myeloma versus metastatic disease. * pending b2 microglobulin, immunoglobulin level inc igg, igm, iga, immunofixation, serum free light chain. urine protein electrophoresis and serum protein electrophoresis. pth-rp. as some of these tests are send-outs, it might take 4-5 days to obtain the results. * Appreciate heme onc input * Consider serum and urine flow cytometry * Serum protein electrophoresis with immunofixation, serum free monoclonal light chain analysis * Monitor lactic acid, creatinine, albumin, calcium, C-reactive protein and beta 2 microglubin * Peripheral blood smear * we obtained nutritional and pt consult * pp: oral tylenol, tramadol 25 q12p, morphine 2q8p * pt initially refused bone marrow biopsy and chemo. on 05/28, pt was asking when the bone marrow biopsy will be done. family would also like to discuss diagnosis and prognosis with Dr. Nguyen. At this point, they are considering inpatient hospice. we are still awaiting lab results for MM workup * might be candidate for steroids # Hypercalcemia - his hypercalcemia improved with ivf 150ml/hr, went from 13.9 to 12.3--> 10.4. his albumin is 3.9 . - family reports that he has been more angry and yelling at them lately. - pth < 6.3 L - on admssion bun/cr 31/1 (pt very cachectic) and appears dehydrated * given pamidronate 60mg X 1 on 05/25/16 # Hypokalemia k has improved from 3.4 to 4. # Chronic history of nonproductive cough - Patient has history of heavy smoking for over 40 years, quit 10 years ago - History of chronic cough over one year nonproductive associated with shortness of breath -CT chest shows subpleural irregular density right lower lobe most likely represents scarring. Comparison to prior CT chest if available is recommended. In the absence of previous examinations, monitoring may be of value. Bronchial wall thickening and possible mucous plugging bilateral lower lobes. * Consider pulmonary function test * TRC evaluation Diet: puree and nectar, 75ml/hr NS DVT prophylaxis: subcutaneous heparin and alps FULL CODE Problem List: 1. Lytic bone lesions on xray 2. Hypercalcemia Pain Ratin Pain Location: none Pain Goal: Pain 4 or less Pain Plan: none Tomorrow's Labs & Rationales: calcium for hyperca bep for hypernatremia DVT/Prophylaxis: mechanical, pharmacological
[2016-05-28 08:37] VITALS: BP 120/60
--- NOTE | 2016-05-28 10:00 | NUR ---
NURSING NOTE: MATTHEW AGGARWAL CAME TO BEDSIDE TO DO A SWALLOW EVAL. PT WAS PLACED ON A PUREE NECTAR THICK DIET. WILL CONTINUE TO MONITOR DURING MEALS.
[2016-05-28 10:25] LABS: ABSOLUTE BASOPHIL COUNT 0 /CUMM (0.0-0.2); ABSOLUTE EOSINOPHIL COUNT 0 /CUMM (0.0-0.7); BASOPHIL % 0.3 % (0.0-2.0)
[2016-05-28 10:28] LABS: ABSOLUTE GRANULOCYTE CT 5.1 /CUMM (1.4-6.5); ABSOLUTE MONOCYTE COUNT 0.7 /CUMM (0.10-0.60); EOSINOPHIL % 0 % (0-5); HEMATOCRIT 36.1 % (42-52); MEAN CORPUSCULAR HGB 31.7 PG (27.0-31.0); MEAN CORPUSCULAR HGB CONC 33.4 G/DL (33.0-37.0); MEAN CORPUSCULAR VOLUME 94.9 FL (80.0-94.0); PLATELET COUNT 251 /CUMM (130-400); RBC DISTRIBUTION WIDTH 13.8 % (11.5-14.5); WHITE BLOOD CELL COUNT 6.8 /CUMM (4.8-10.8)
--- NOTE | 2016-05-28 15:44 | PN- Att Addend ---
Attending Addendum Attending Brief Note Pt seen and examined at bedsidet. Thin built male in NAD. pt was started on dysphagia diet and pt seemed more reasonable than any other day. Pt is ok to get BM biopsy, will get heme/onc tomorrow to get BM biopsy, will make him NPO past midnight for BM biopsy. A/p- Hypercalcemia with lytic bone lesion. likely secondary to multiple myeloma. Awaiting test results especially beta microglobulin to help stage the disease. will get BM biopsy as pt ok with that. Hypernatremia and hyperchloremia- will dc the NS and will start on 1/2 NS and repeat BEP tomorrow. Dysphagia- pt started on pureed diet and nectar thick liquid diet , Aspriation pneumonia- cont current managment. started on probiotics. had lengthy discussion with son yesterday. pt has performance status of 3 , told him we will await further testing to decide on treatment options.
[2016-05-28 16:17] VITALS: BP 118/52
[2016-05-28 23:42] VITALS: BP 122/60
--- NOTE | 2016-05-29 07:21 | PN- Housestaff ---
See Addendum Subjective Follow-up For: likely multiple myeloma Subjective: We are in communication with his son, IR, oncology, to try to get bone marrow biopsy. Pt is agreeable however his son has a lot of concerns regarding possible complications of doing bone marrow biopsy. He would like to speak to Dr. Novak and they will be meeting at [address] Bonner and myself have also spoken extensively with his son. Pt is currently NPO for possible bone marrow biopsy. however we will proceed with formal swallow evaluation to possible advance his diet. he has been coughing more since this morning, however he is off oxygen and not in respiratory distress. Review of Systems Constitutional: Reports: see HPI. Objective Last 24 Hrs of Vital Signs/I&O Vital Signs Date Time Temp Pulse Resp B/P Pulse O2 O2 Flow FiO2 Ox Delivery Rate 05/29 0811 98.2 71 20 132/64 95 05/28 2342 98.5 84 20 122/60 95 Nasal 2.0L Cannula 05/28 2211 93 Room Air 05/28 1730 18 93 Room Air Room Air 05/28 1617 98.2 87 20 118/52 96 Nasal 1.5L Cannula 05/28 1600 93 Room Air Room Air Intake & Output 05/29 1600 05/29 0800 05/29 0000 Intake Total 600 1600 Output Total 500 375 Balance 100 1225 Intake, IV 600 600 Intake, Oral 1000 Output, Urine 500 375 Physical Exam General Appearance: Alert, Oriented X3, Cooperative, No Acute Distress Skin: No Rashes, No Breakdown, No Significant Lesion HEENT: Atraumatic, PERRLA, EOMI Neck: Supple Cardiovascular: Regular Rate, Normal S1, Normal S2, No Murmurs, Gallops, Rubs Lungs: Clear to Auscultation Abdomen: Normal Bowel Sounds, Soft, No Tenderness Neurological: Normal Speech, irritable at times Extremities: No Edema Current Medications: Current Medications Sig/Dominique Start time Last Medication Dose Route Stop Time Status Admin Acetaminophen 650 MG Q6P PRN 05/24 2345 AC PO Albuterol Sulfate 3 ML Q4P PRN 05/25 2200 AC INH Bisacodyl 10 MG DAILY 05/28 1815 AC 05/28 [place] 1828 Clindamycin 600 MG IQ8 05/26 1615 AC 05/29 Dextrose/Water 50 ML IV 0844 Docusate Sodium 100 MG BID PRN 05/26 1330 AC PO Heparin Sodium 5,000 UNIT Q8 05/25 0600 AC 05/29 (Porcine) SC 0518 Lactobacillus 1 CAP DAILY 05/28 1930 CAN Acidophilus PO Lactobacillus 1 CAP BID 05/28 1027 AC 05/28 Acidophilus PO 2243 Morphine Sulfate 2 MG Q8P PRN 05/24 2345 AC IV Polyethylene Glycol 17 GM DAILY PRN 05/26 1330 AC PO Senna/Docusate Sodium 2 TAB DAILY PRN 05/26 1330 AC PO Sodium Chloride 1,000 ML Q14H 05/28 1645 AC 05/29 IV 0847 Sodium Chloride 1,000 ML .[id number] 05/28 1545 DC 05/28 IV 1637 Sodium Chloride 1,000 ML Q13H 05/28 1230 DC 05/28 IV 1309 Tramadol HCl 25 MG Q12P PRN 05/24 2345 AC PO Last 24 Hrs of Lab/Bert Results Last 24 Hrs of Labs/Mics: Laboratory Tests 05/29/16 0700: Anion Gap 3 L, Estimated GFR > 60, BUN/Creatinine Ratio 15.7, Calcium 9.0 Assessment/Plan Assessment: Mr. Nice is 85-year-old male with chief complaint of generalized weakness for 4 weeks. PMH of BPH s/p TURP 2 time last was 2 years ago. He has significant history of nonproductive cough and weight loss over a course of 1 year. Patient was brought to ED by his and son because he was found very weak and had urinary incontinence for the first time on day of admission . Continue Coude catheter for incontinence (consider discontinuing) Continue patient safety monitor for agitation (consider discontinuing) Problem list # Possible multiple myeloma: hypercalcemia, low PTH, weakness, cachexia, dehydration # Possible Aspiration PNA # Hypokalemia resolved # Chronic history of nonproductive cough # Possible aspiration PNA - had aspiration on 05/26 while eating lunch, cxr showed signs of pneumonitis or evolving infection, pt put on NPO and clindamycin started 12pm. - 05/28 he appears to be breathing comfortably on the oxygen. no longer has coughing fits. he reported feeling hungry, i did bedside swallow evaluation with thickened OJ and apple sauce and he did very well. I put diet for puree and nectar. - wbc from 12.2 --> 6.8 * consider discontinuing clindamycin as pt improving. Clindamycin day # 4. Continue probiotic * formal swallow evaluation for 05/29 # Possible multiple myeloma: hypercalcemia, low PTH, weakness, cachexia - Discussed with Dr. Novak - ldh 325 - ca 13.9 to 12.3--> 10.4 --> 9 - la 2.3 --> 1.1 - total protein 11.2. total albumin 3.9. - ck 34 - The patient reported history of weight loss course of 1 year and recent history of poor oral intake, night sweats, progressive weakness - Lab results are significant for metabolic acidosis, increased BUN, creatinine of 1 that doesn't correlate with the patient's muscle mass, high total protein of 11.2 with significant globulin 7.3, low parathyroid hormone, hypercalcemia - Imaging: Multiple lucencies within the skull base and calvarium. Differential possibility includes severe bony demineralization versus lytic metastases.Abnormal lucency right iliac bone. Lytic osseous lesion cannot be excluded. - skeletal survey: Extensive lucent lesions throughout the osseous structures, most prominently affecting the skull, pelvis, and extremities. Findings are suspicious for multiple myeloma versus metastatic disease. * pending b2 microglobulin, immunoglobulin level inc igg, igm, iga, immunofixation, serum free light chain. urine protein electrophoresis and serum protein electrophoresis. pth-rp. as some of these tests are send-outs, it might take 4-5 days to obtain the results. * Appreciate heme onc input * Consider serum and urine flow cytometry * Serum protein electrophoresis with immunofixation, serum free monoclonal light chain analysis * Monitor lactic acid, creatinine, albumin, calcium, C-reactive protein and beta 2 microglubin * Peripheral blood smear * we obtained nutritional and pt consult * pp: oral tylenol, tramadol 25 q12p, morphine 2q8p * pt initially refused bone marrow biopsy and chemo. on 05/28, pt was asking when the bone marrow biopsy will be done. family would also like to discuss diagnosis and prognosis with Dr. Nguyen. At this point, they are considering inpatient hospice. we are still awaiting lab results for MM workup * might be candidate for steroids # Hypercalcemia - his hypercalcemia improved with ivf 150ml/hr, went from 13.9--> 9. his albumin is 3.9 . - family reports that he has been more angry and yelling at them lately. - pth < 6.3 L - on admssion bun/cr 31/1 (pt very cachectic) and appears dehydrated * given pamidronate 60mg X 1 on 05/25/16 # Hypokalemia k has improved from 3.4 to 4. # Chronic history of nonproductive cough - Patient has history of heavy smoking for over 40 years, quit 10 years ago - History of chronic cough over one year nonproductive associated with shortness of breath -CT chest shows subpleural irregular density right lower lobe most likely represents scarring. Comparison to prior CT chest if available is recommended. In the absence of previous examinations, monitoring may be of value. Bronchial wall thickening and possible mucous plugging bilateral lower lobes. * Consider pulmonary function test * TRC evaluation Diet: NPO for possible bone marrow biopsy, and awaiting swallow evaluation DVT prophylaxis: subcutaneous heparin and alps FULL CODE Problem List: 1. Hypercalcemia 2. Failure to thrive 3. Lytic bone lesions on xray Pain Ratin Pain Location: none Pain Goal: Remain pain free Pain Plan: none Tomorrow's Labs & Rationales: none DVT/Prophylaxis: mechanical, pharmacological
[2016-05-29 08:11] VITALS: BP 132/64
--- NOTE | 2016-05-29 10:29 | PN- Hematology ---
Subjective Subjective: He denies any new pain. He was more cooperative today. Review of Systems: Limited due to mental status: no pain Objective Vital Signs and I&Os Vital Signs Date Time Temp Pulse Resp B/P Pulse O2 O2 Flow FiO2 Ox Delivery Rate 05/29 0811 98.2 71 20 132/64 95 05/28 2342 98.5 84 20 122/60 95 Nasal 2.0L Cannula 05/28 2211 93 Room Air 05/28 1730 18 93 Room Air Room Air 05/28 1617 98.2 87 20 118/52 96 Nasal 1.5L Cannula 05/28 1600 93 Room Air Room Air 05/28 1230 97 Nasal 1.5L Cannula Intake & Output 05/29 1600 05/29 0800 05/29 0000 05/28 1600 05/28 0800 05/28 0000 Intake Total 600 1600 1600 800 300 Output Total 500 375 700 550 575 Balance 100 1225 900 250 -275 Intake, IV 600 600 800 800 300 Intake, Oral 1000 800 0 Output, Urine 500 375 700 550 575 Physical Exam General Appearance: no apparent distress, awake, cachetic Respiratory: normal breath sounds, chest non-tender Cardiovascular: murmur Abdomen: normal bowel sounds, soft, non-tender Current Medications: Current Medications Sig/Dominique Start time Last Medication Dose Route Stop Time Status Admin Acetaminophen 650 MG Q6P PRN 05/24 2345 AC PO Albuterol Sulfate 3 ML Q4P PRN 05/25 2200 AC INH Bisacodyl 10 MG DAILY 05/28 1815 AC 05/28 [place] 1828 Clindamycin 600 MG IQ8 05/26 1615 AC 05/29 Dextrose/Water 50 ML IV 0844 Docusate Sodium 100 MG BID PRN 05/26 1330 AC PO Heparin Sodium 5,000 UNIT Q8 05/25 0600 AC 05/29 (Porcine) SC 0518 Lactobacillus 1 CAP DAILY 05/28 1930 CAN Acidophilus PO Lactobacillus 1 CAP BID 05/28 1027 AC 05/28 Acidophilus PO 2243 Morphine Sulfate 2 MG Q8P PRN 05/24 2345 AC IV Polyethylene Glycol 17 GM DAILY PRN 05/26 1330 AC PO Potassium Chloride 40 MEQ Q13H 05/27 1145 DC 05/28 Dextrose/Sodium 1,000 ML IV 1009 Chloride Senna/Docusate Sodium 2 TAB DAILY PRN 05/26 1330 AC PO Sodium Chloride 1,000 ML Q14H 05/28 1645 AC 05/29 IV 0847 Sodium Chloride 1,000 ML .[id number] 05/28 1545 DC 05/28 IV 1637 Sodium Chloride 1,000 ML Q13H 05/28 1230 DC 05/28 IV 1309 Tramadol HCl 25 MG Q12P PRN 05/24 2345 AC PO Results Last 24 Hours of Lab Results: Laboratory Tests 05/29 0700 Chemistry Sodium (137 - 145 mmol/L) 139 Potassium (3.5 - 5.1 mmol/L) 3.8 Chloride (98 - 107 mmol/L) 105 Carbon Dioxide (22 - 30 mmol/L) 31 H Anion Gap (5 - 16) 3 L BUN (9 - 20 mg/dL) 11 Creatinine (0.7 - 1.2 mg/dL) 0.7 Estimated GFR (>60 ml/min) > 60 BUN/Creatinine Ratio (7 - 25 %) 15.7 Calcium (8.4 - 10.2 mg/dL) 9.0 Assessment/Plan Assessment/Recommendations: Mr. Nice is an 85-year-old with history of BPH s/p TURB who presents with significant weakness, weight loss, and decondition. He is cachetic on examination. He has still able to drive up until last week. On admission he was noted to have elevated calcium at 13.9, elevate total protein at 11.2, albumin at 3.9, and low PTH. His creatinine and hemoglobin are normal. CT imaging noted some lytic bone lesions. These are concerning for multiple myeloma. He was started on IVF on admission. SPEP and UPEP were sent. Skeletal survey was done and noted numerous bone lesions concerning for multiple myeloma. Calcium was elevated. Pamidronate 60 mg was given once with calciumat 12.3. With his mental status, it is concerning that this may be due to hypercalcemia. Calcium is 9.0 today. Mental status is improving. His performance status continues to be aroudn 3-4 currently. Bone marrow biopsy would be needed to have complete staging. This may be done as an inpatient by IR or outpatient in clinic. This would not change the management currently. Due to his age and frail condition, aggressive options are limited. Melphalan with prednisone can be a good option for the patient. He currently refuses chemotherapy option. Recommendations: 1. Follow up SPEP, UPEP, serum free light chains (kappa and lambda), serum immunofixation, beta-2 microglobulin, and serum immunoglobulin level (IgA, IgG, IgM) - Please ensure these are sent 2. Monitor calcium level Please call [phone] with any questions or concerns. Problem List: 1. Lytic bone lesions on xray 2. Failure to thrive 3. Hypercalcemia
--- NOTE | 2016-05-29 14:33 | NUR ---
SPEECH THERAPY: CHART REVIEWED AND ATTEMPTED TO SEE PT FOR FOLLOWUP RE: SWALLOWING HOWEVER PT IS CURRENTLY NPO FOR BONE BIOPSY. WILL FOLLOWUP 05/30. D/W ARANZA.
--- NOTE | 2016-05-29 15:04 | NUR ---
NURSING NOTE: PT OFF FLOOR TO CT FOR BIOPSY. PER DR. GARZA, HE SPOKE WITH SON JACINTA AND BOTH PT AND SON ARE AGREEABLE TO HAVING PROCEEDURE DONE. PT WENT W/PATIENT SAFETY MONITOR AT BEDSIDE. RHONDA IN CT AWARE OF SAFETY MONITOR.
[2016-05-29 16:05] VITALS: BP 125/72
--- NOTE | 2016-05-29 16:30 | NUR ---
NURSING NOTE: PATIENT LEFT FLOOR VIA STRETCHER WITH DISTRIBUTION TO CT FOR BIOPSY. SON TRANSFERED WITH PATIENT. WILL AWAIT RETURN.
--- NOTE | 2016-05-29 17:30 | NUR ---
NURSING NOTE: PATIENT ARRIVED FROM CT BIOPSY A/OX3, DENIES PAIN. SITTER AT BEDSIDE. BANDAID IN PLACE TO R GROIN/HIP AREA. WILL CONTINUE TO MONITOR.
--- NOTE | 2016-05-29 18:05 | CT SCAN REPORT ---
PROCEDURE: CT GUIDED RIGHT ILIAC MASS BIOPSY CT-GUIDED BONE MARROW ASPIRATION INDICATION/HISTORY: 85-year-old male with numerous osseous lesions, concerning for multiple myeloma or other metastatic disease. Request from oncology to perform targeted right iliac biopsy as well as a marrow aspirate. PERFORMING CLINICIAN: Arnulfo Schaffer MD Interventional Radiologist BIOPSY NEEDLE: 20-gauge Bobby coaxial biopsy needle PRIOR IMAGING: CT chest abdomen pelvis 05/24/2016 MEDICATIONS: 20 ml of 1% lidocaine was used to obtain local anesthesia SEDATION: The procedure was performed with intravenous mild conscious sedation, standard monitoring with a certified nurse for a total of 6.2 minutes. 25 mcg of fentanyl was utilized, as per the electronic medical record. SPECIMEN: 1. The right iliac specimen was sent for cytology and pathology. The specimen was appropriately labeled and sent to the laboratory for evaluation with request to inform the referring physician of results. 2. The marrow aspirate was sent for pathology and cytology testing, as per standard marrow aspirate protocol. The specimen was appropriately labeled and sent to the laboratory for evaluation with request to inform the referring physician of results CONSENT: Informed consent was obtained from the patient prior to the procedure. During this process, the procedure and potential alternatives was explained along with the intended outcome and benefits. The risks of the procedure, including the possibility of an unsuccessful procedure, as well as the risk of not doing the procedure were discussed. The patient was given the opportunity to ask any questions regarding the procedure and appeared competent to make medical decisions. A signed consent form which documents this discussion was placed in the medical record. A final timeout was completed. TECHNIQUE: The patient was brought to the CAT scan room and placed in the supine position. CAT scan images of the abdomen were obtained to localize the right iliac lesion. An area of the patient's right lateral hip was prepped and draped in the standard sterile fashion. 20 cc of 1% lidocaine was used to obtain local anesthesia the skin and deeper tissues. The 20-gauge biopsy needle was passed through the skin and into the bone mass under real-time CT fluoroscopic guidance. A single specimens was taken, which yielded a large volume of tissue. The specimen appeared robust. Thereafter, the 20-gauge biopsy needle was repositioned through the skin and into the adjacent right iliac bone marrow under real-time CT fluoroscopic guidance. 10 mL of bone marrow aspirate was taken. The specimen appeared robust. The needle was then removed and pressure was held until hemostasis was assured. A sterile dressing was then placed over the site. COMPLICATIONS: The patient tolerated the procedure well without complications. He was transferred to the floor in good condition. CONCLUSION: 1. CT guided right iliac mass biopsy. 2. CT-guided bone marrow aspirate.
[2016-05-29 23:49] VITALS: BP 109/55
--- NOTE | 2016-05-30 04:17 | NUR ---
NURSING NOTE: PT PULLED IV LINE. NEW LINE ESTABLISHED. GUERRA PER ORDER. SITTER AT BEDSIDE. WILL CONTINUE TO MONITOR.
--- NOTE | 2016-05-30 06:38 | PN- Housestaff ---
See Addendum Subjective Follow-up For: multiple myeloma Subjective: seen and examined pt. offers no complaints Review of Systems Constitutional: Denies: chills, diaphoresis, fever, malaise, weakness, unexplained weight loss. Cardiovascular: Denies: chest pain, edema, orthopena, palpitations, peripheral edema, syncope. Respiratory: Denies: cough, hemoptysis, orthopnea, short of breath, sputum production, stridor, wheezing. Objective Last 24 Hrs of Vital Signs/I&O Vital Signs Date Time Temp Pulse Resp B/P Pulse O2 O2 Flow FiO2 Ox Delivery Rate 05/29 2349 98.0 74 20 109/55 94 Room Air 05/29 1922 94 Room Air 05/29 1605 98.2 68 20 125/72 94 05/29 1600 Nasal 2.0L Cannula 05/29 1405 93 Room Air 05/29 0811 98.2 71 20 132/64 95 Intake & Output 05/30 0800 05/30 0000 05/29 1600 Intake Total 1390 Output Total 200 230 700 Balance -200 1160 -700 Intake, IV 490 Intake, Oral 900 Number 1 Bowel Movements Output, Urine 200 230 700 Physical Exam General Appearance: Alert, cachexic HEENT: dry mucous membranes Cardiovascular: Normal S1, Normal S2 Lungs: Normal Air Movement Abdomen: Normal Bowel Sounds, Soft, No Tenderness Extremities: No Edema Current Medications: Current Medications Sig/Dominique Start time Last Medication Dose Route Stop Time Status Admin Acetaminophen 650 MG Q6P PRN 05/24 2345 AC PO Albuterol Sulfate 3 ML Q4P PRN 05/25 2200 AC 05/29 INH 1919 Bisacodyl 10 MG DAILY 05/28 1815 AC 05/28 IN 1828 Clindamycin 600 MG IQ8 05/26 1615 AC 05/30 Dextrose/Water 50 ML IV 0845 Docusate Sodium 100 MG BID PRN 05/26 1330 AC PO Heparin Sodium 5,000 UNIT Q8 05/25 0600 AC 05/29 (Porcine) SC 0518 Lactobacillus 1 CAP BID 05/28 1027 AC 05/28 Acidophilus PO 2243 Lidocaine 1 ML .STK-MED ONE 05/29 1742 DC ID 05/29 1743 Morphine Sulfate 2 MG Q8P PRN 05/24 2345 AC IV Patient Medication 1 ED ONE ONE 05/29 1415 DC Teaching ED 05/29 1416 Polyethylene Glycol 17 GM DAILY PRN 05/26 1330 AC PO Senna/Docusate Sodium 2 TAB DAILY PRN 05/26 1330 AC PO Sodium Chloride 1,000 ML Q14H 05/28 1645 AC 05/30 IV 0851 Tramadol HCl 25 MG Q12P PRN 05/24 2345 AC PO Last 24 Hrs of Lab/Bert Results Last 24 Hrs of Labs/Mics: Laboratory Tests 05/29/16 1725: Flow Cytometry Specimen Pending 05/29/16 1725: Flow Cytometry Specimen Pending Assessment/Plan Assessment: 85-year-old gentleman with PMH of BPH s/p TURP 2 current admission for generalized weakness for 4 weeks s/p bone biopsy and marrow aspirate # Possible aspiration PNA * consider discontinuing clindamycin as pt improving. Clindamycin day # 5. Continue probiotic * formal swallow evaluation for 05/29 # Possible multiple myeloma: hypercalcemia, low PTH, weakness, cachexia - Imaging: Multiple lucencies within the skull base and calvarium. Differential possibility includes severe bony demineralization versus lytic metastases.Abnormal lucency right iliac bone. Lytic osseous lesion cannot be excluded. - skeletal survey: Extensive lucent lesions throughout the osseous structures, most prominently affecting the skull, pelvis, and extremities. Findings are suspicious for multiple myeloma versus metastatic disease. # Hypercalcemia - his hypercalcemia improved with ivf 150ml/hr, went from 13.9--> 9. his albumin is 3.9 . - family reports that he has been more angry and yelling at them lately. - pth < 6.3 L - on admssion bun/cr 31/1 (pt very cachectic) and appears dehydrated * given pamidronate 60mg X 1 on 05/25/16 # Hypokalemia k has improved from 3.4 to 4. # Chronic history of nonproductive cough - Patient has history of heavy smoking for over 40 years, quit 10 years ago - History of chronic cough over one year nonproductive associated with shortness of breath -CT chest shows subpleural irregular density right lower lobe most likely represents scarring. Comparison to prior CT chest if available is recommended. In the absence of previous examinations, monitoring may be of value. Bronchial wall thickening and possible mucous plugging bilateral lower lobes. * Consider pulmonary function test * TRC evaluation Diet: continues to aspirate, will have another swallow eval today DVT prophylaxis: subcutaneous heparin and alps FULL CODE Problem List: 1. Lytic bone lesions on xray 2. Multiple myeloma 3. Failure to thrive Pain Ratin Pain Location: na Pain Goal: Pain 4 or less Pain Plan: current regimen Tomorrow's Labs & Rationales: none required
[2016-05-30 08:25] VITALS: BP 120/60
--- NOTE | 2016-05-30 10:30 | PN- Hematology ---
Subjective Subjective: He underwent bone biopsy and marrow aspirate yesterday. He tolerated it well. This morning he denies any issues. He feels better. He denies any pain. He is more alert and oriented. He is more cooperative with examination. Last night, I met with Mrs. Nice and her son to discuss Mr. Nice's condition. I went over the likely diagnosis of multiple myeloma. Laboratory studies and bone biopsy are pending. He likely has myeloma. Given his performance status on admission, options for therapy are limited. Depending on his improvement, he would be a candidate for less intensive therapy. Prognosis is difficult to determine. He will need to improve to be seen in the clinic if possible. Review of Systems Constitutional: Reports: weakness. Denies: chills, fever. Cardiovascular: Denies: chest pain. Gastrointestinal: Denies: abdominal pain. Neurological/Psychological: Reports: confusion. All Other Systems: Reviewed and Negative Objective Vital Signs and I&Os Vital Signs Date Time Temp Pulse Resp B/P Pulse O2 O2 Flow FiO2 Ox Delivery Rate 05/30 0825 97.7 78 20 120/60 92 Room Air 05/30 0751 95 Room Air 05/29 2349 98.0 74 20 109/55 94 Room Air 05/29 1922 94 Room Air 05/29 1605 98.2 68 20 125/72 94 05/29 1600 Nasal 2.0L Cannula 05/29 1405 93 Room Air Intake & Output 05/30 1600 05/30 0800 05/30 0000 05/29 1600 05/29 0800 05/29 0000 Intake Total 620 9124 920 3767 Output Total 1050 230 700 500 375 Balance -430 1160 -938 554 6337 Intake, IV 560 490 600 600 Intake, Oral 60 900 1000 Number 1 Bowel Movements Output, Urine 1050 230 700 500 375 Physical Exam General Appearance: alert, awake, cachetic, oriented to self, location, month, but not year Head: atraumatic Ears, Nose, Throat: dry mucosa Respiratory: chest non-tender, no respiratory distress, crackles Cardiovascular: regular rate/rhythm Abdomen: normal bowel sounds, soft, non-tender, no organomegaly Extremities: pedal edema Neurologic/Psychiatric: awake, alert, oriented to self, location, month, but not year Skin: normal color Current Medications: Current Medications Sig/Dominique Start time Last Medication Dose Route Stop Time Status Admin Acetaminophen 650 MG Q6P PRN 05/24 2345 AC PO Albuterol Sulfate 3 ML Q4P PRN 05/25 2200 AC 05/29 INH 1919 Bisacodyl 10 MG DAILY 05/28 1815 AC 05/28 [place] 1828 Clindamycin 600 MG IQ8 05/26 1615 AC 05/30 Dextrose/Water 50 ML IV 0845 Docusate Sodium 100 MG BID PRN 05/26 1330 AC PO Heparin Sodium 5,000 UNIT Q8 05/25 0600 AC 05/29 (Porcine) SC 0518 Lactobacillus 1 CAP BID 05/28 1027 AC 05/28 Acidophilus PO 2243 Lidocaine 1 ML .STK-MED ONE 05/29 1742 DC ID 05/29 1743 Morphine Sulfate 2 MG Q8P PRN 05/24 2345 AC IV Patient Medication 1 ED ONE ONE 05/29 1415 DC Teaching ED 05/29 1416 Polyethylene Glycol 17 GM DAILY PRN 05/26 1330 AC PO Senna/Docusate Sodium 2 TAB DAILY PRN 05/26 1330 AC PO Sodium Chloride 1,000 ML Q14H 05/28 1645 AC 05/30 IV 0851 Tramadol HCl 25 MG Q12P PRN 05/24 2345 AC PO Results Last 24 Hours of Lab Results: Laboratory Tests 05/29 05/29 1725 1725 Miscellaneous Flow Cytometry Specimen Pending Pending Assessment/Plan Assessment/Recommendations: Mr. Nice is an 85-year-old with history of BPH s/p TURB who presents with significant weakness, weight loss, and decondition. He is cachetic on examination. He has still able to drive up until last week. On admission he was noted to have elevated calcium at 13.9, elevate total protein at 11.2, albumin at 3.9, and low PTH. His creatinine and hemoglobin are normal. CT imaging noted some lytic bone lesions. These are concerning for multiple myeloma. Work up in the hospital has revealed numerous bone lesions concerning for multiple myeloma on skeletal survey and elevated serum free light chain ratio ( kappa light chain predominance). His calcium was elevated and has improved with pamidronate 60 mg. Mental status has improved. Bone marrow was done by IR yesterday. SPEP, UPEP, immunofixation, beta-2 microglobulin, and immunoglobulin are pending. Bone marrow biopsy pending. Due to his age and frail condition, aggressive options are limited. Melphalan with prednisone can be a good option for the patient. He is recovering with some improvement in PS. He is being evaluated for swallowing dysfunction. Pending improvement in his condition, he may be seen as an outpatient for discussion of therapy. Recommendations: 1. Follow up SPEP, UPEP, serum immunofixation, beta-2 microglobulin, and serum immunoglobulin level (IgA, IgG, IgM) 2. Follow up bone marrow results 3. Follow up as outpatient to discuss therapy Please call [phone] with any questions or concerns. Problem List: 1. Lytic bone lesions on xray 2. Hypercalcemia 3. Multiple myeloma 4. Failure to thrive 5. Weakness
[2016-05-30 15:54] VITALS: BP 123/74
[2016-05-30 23:40] VITALS: BP 132/72
[2016-05-31 08:41] VITALS: BP 114/60
--- NOTE | 2016-05-31 09:56 | PN- Housestaff ---
See Addendum Subjective Follow-up For: multiple myeloma Subjective: And examined patient, lying comfortably in bed. Denies any pain chest pain, shortness of breath, fever. Nothing by mouth as he failed a swallow eval Review of Systems Constitutional: Denies: chills, diaphoresis, fever, malaise, weakness, unexplained weight loss. Cardiovascular: Denies: chest pain, edema, orthopena, palpitations, peripheral edema, syncope. Respiratory: Denies: cough, hemoptysis, orthopnea, short of breath, sputum production, stridor, wheezing. Objective Last 24 Hrs of Vital Signs/I&O Vital Signs Date Time Temp Pulse Resp B/P Pulse O2 O2 Flow FiO2 Ox Delivery Rate 05/31 1020 93 Room Air 05/31 0841 98.0 78 20 114/60 94 Room Air 05/31 0800 93 Room Air Room Air 05/30 2340 97.3 69 18 132/72 92 Room Air 05/30 1649 93 Room Air 05/30 1600 Room Air 05/30 1554 98.2 83 21 123/74 95 Room Air Intake & Output 05/31 1600 05/31 0800 05/31 0000 Intake Total 625 600 Output Total 800 1150 Balance -175 -550 Intake, IV 625 600 Intake, Oral 0 Number 1 Bowel Movements Output, Urine 800 1150 Physical Exam General Appearance: Alert, Cooperative, No Acute Distress Cardiovascular: Regular Rate, Normal S1, Normal S2 Lungs: Clear to Auscultation, Normal Air Movement Extremities: No Edema Current Medications: Current Medications Sig/Dominique Start time Last Medication Dose Route Stop Time Status Admin Acetaminophen 650 MG Q6P PRN 05/24 2345 AC PO Albuterol Sulfate 3 ML Q4P PRN 05/25 2200 AC 05/29 INH 1919 Bisacodyl 10 MG DAILY 05/28 1815 AC 05/28 [place] 1828 Clindamycin 600 MG IQ8 05/30 1645 AC 05/31 Dextrose/Water 50 ML IV 0740 Clindamycin 600 MG IQ8 05/26 1615 DC 05/30 Dextrose/Water 50 ML IV 0845 Dextrose/Sodium 1,000 ML Q13H 05/30 1445 AC 05/31 Chloride IV 0555 Docusate Sodium 100 MG BID PRN 05/26 1330 AC PO Heparin Sodium 5,000 UNIT Q8 05/25 0600 AC 05/31 (Porcine) SC 0555 Lactobacillus 1 CAP BID 05/28 1027 AC 05/28 Acidophilus PO 2243 Morphine Sulfate 2 MG Q8P PRN 05/24 2345 AC IV Polyethylene Glycol 17 GM DAILY PRN 05/26 1330 AC PO Senna/Docusate Sodium 2 TAB DAILY PRN 05/26 1330 AC PO Sodium Chloride 1,000 ML Q14H 05/28 1645 DC 05/30 IV 0851 Tramadol HCl 25 MG Q12P PRN 05/24 2345 AC PO Assessment/Plan Assessment: 85-year-old gentleman with PMH of BPH s/p TURP 2 current admission for generalized weakness for 4 weeks s/p bone biopsy and marrow aspirate # Possible aspiration PNA * consider discontinuing clindamycin as pt improving. Clindamycin day # 6. * Failed swallow eval three times, currently nothing by mouth we'll need to address feeding tube placement. Patient agreeable. Attempted to contact son to inform him at [phone] but was not able to reach him. # Possible multiple myeloma: hypercalcemia, low PTH, weakness, cachexia - Imaging: Multiple lucencies within the skull base and calvarium. Differential possibility includes severe bony demineralization versus lytic metastases.Abnormal lucency right iliac bone. Lytic osseous lesion cannot be excluded. - skeletal survey: Extensive lucent lesions throughout the osseous structures, most prominently affecting the skull, pelvis, and extremities. Findings are suspicious for multiple myeloma versus metastatic disease. increased kappa light chains, biopsy results pending # Hypercalcemia - his hypercalcemia improved with ivf 150ml/hr, went from 13.9--> 9. his albumin is 3.9 . - family reports that he has been more angry and yelling at them lately. - pth < 6.3 L - on admssion bun/cr 31/1 (pt very cachectic) and appears dehydrated * given pamidronate 60mg X 1 on 05/25/16 # Hypokalemia k has improved from 3.8 Diet: continues to aspirate DVT prophylaxis: subcutaneous heparin and alps FULL CODE Problem List: 1. Multiple myeloma 2. Failure to thrive Pain Ratin Pain Location: na Pain Goal: Pain 4 or less Pain Plan: current regimen Tomorrow's Labs & Rationales: cbc/bep
--- NOTE | 2016-05-31 11:43 | PN- Hematology ---
Subjective Subjective: He denies any symptoms today. He is still NPO. He states he is willing for chemotherapy. He states I should talk to his son. Review of Systems: Constitutional: Reports: weakness. Denies: chills, fever. Cardiovascular: Denies: chest pain. Gastrointestinal: Denies: abdominal pain. Neurological/Psychological: Reports: confusion. All Other Systems: Reviewed and Negative. Limited due to mental status. Objective Vital Signs and I&Os Vital Signs Date Time Temp Pulse Resp B/P Pulse O2 O2 Flow FiO2 Ox Delivery Rate 05/31 1020 93 Room Air 05/31 0841 98.0 78 20 114/60 94 Room Air 05/31 0800 93 Room Air Room Air 05/30 2340 97.3 69 18 132/72 92 Room Air 05/30 1649 93 Room Air 05/30 1600 Room Air 05/30 1554 98.2 83 21 123/74 95 Room Air Intake & Output 05/31 1600 05/31 0800 05/31 0000 05/30 1600 05/30 0800 05/30 0000 Intake Total 625 600 364 742 9637 Output Total 800 2868 875 9750 230 Balance -175 -550 -140 -430 1160 Intake, IV 625 600 560 560 490 Intake, Oral 0 0 60 900 Number 1 2 Bowel Movements Output, Urine 800 1449 922 9218 230 Physical Exam: General Appearance: alert, awake, cachetic, oriented to self, location, month, but not year Head: atraumatic Ears, Nose, Throat: dry mucosa Respiratory: chest non-tender, no respiratory distress, crackles Cardiovascular: regular rate/rhythm Abdomen: normal bowel sounds, soft, non-tender, no organomegaly Extremities: pedal edema Neurologic/Psychiatric: awake, alert, oriented to self, location, but not month or year Skin: normal color Current Medications: Current Medications Sig/Dominique Start time Last Medication Dose Route Stop Time Status Admin Acetaminophen 650 MG Q6P PRN 05/24 2345 AC PO Albuterol Sulfate 3 ML Q4P PRN 05/25 2200 AC 05/29 INH 1919 Bisacodyl 10 MG DAILY 05/28 1815 AC 05/28 [place] 1828 Clindamycin 600 MG IQ8 05/30 1645 AC 05/31 Dextrose/Water 50 ML IV 0740 Clindamycin 600 MG IQ8 05/26 1615 DC 05/30 Dextrose/Water 50 ML IV 0845 Dextrose/Sodium 1,000 ML Q13H 05/30 1445 AC 05/31 Chloride IV 0555 Docusate Sodium 100 MG BID PRN 05/26 1330 AC PO Heparin Sodium 5,000 UNIT Q8 05/25 0600 AC 05/31 (Porcine) SC 0555 Lactobacillus 1 CAP BID 05/28 1027 AC 05/28 Acidophilus PO 2243 Morphine Sulfate 2 MG Q8P PRN 05/24 2345 AC IV Polyethylene Glycol 17 GM DAILY PRN 05/26 1330 AC PO Senna/Docusate Sodium 2 TAB DAILY PRN 05/26 1330 AC PO Sodium Chloride 1,000 ML Q14H 05/28 1645 DC 05/30 IV 0851 Tramadol HCl 25 MG Q12P PRN 05/24 2345 AC PO Assessment/Plan Assessment/Recommendations: Mr. Nice is an 85-year-old with history of BPH s/p TURB who presents with significant weakness, weight loss, and decondition. He is cachetic on examination. He has still able to drive up until last week. On admission he was noted to have elevated calcium at 13.9, elevate total protein at 11.2, albumin at 3.9, and low PTH. His creatinine and hemoglobin are normal. CT imaging noted some lytic bone lesions. These are concerning for multiple myeloma. Work up in the hospital has revealed numerous bone lesions concerning for multiple myeloma on skeletal survey, M-spike of 2.7, and elevated serum free light chain ratio (kappa light chain predominance). His calcium was elevated and has improved with pamidronate 60 mg. Mental status has improved. Bone marrow was done by IR and pathology is pending. UPEP, immunofixation, beta-2 microglobulin, and immunoglobulin are pending. Bone marrow biopsy pending. Due to his age and frail condition, aggressive options are limited. Melphalan with prednisone can be a good option for the patient. He continues to have some improvement in his mental status. He is still NPO. Speech evaluation is pending. PT evaluation is pending. Recommendations: 1. Follow up UPEP, serum immunofixation, beta-2 microglobulin, and serum immunoglobulin level (IgA, IgG, IgM), please ensure these are sent 2. Follow up bone marrow results 3. Follow up as outpatient to discuss therapy likely melphalan/prednisone 4. Follow up speech and swallow evaluation 5. PT evaluation Please call [phone] with any questions or concerns. Problem List: 1. Multiple myeloma 2. Lytic bone lesions on xray 3. Failure to thrive 4. Hypercalcemia
[2016-05-31 16:08] VITALS: BP 112/58
[2016-06-01 00:07] VITALS: BP 116/64
--- NOTE | 2016-06-01 07:23 | PN- Housestaff ---
See Addendum Subjective Follow-up For: Multiple myeloma, deconditioning, failure to thrive Subjective: Refused blood work and physical therapy today. Wishes to eat however he has failed the swallow eval 3 times. Denies being in pain, chest pain, shortness of breath, abdominal pain. He also refused physical therapy today Review of Systems Constitutional: Denies: chills, diaphoresis, fever, malaise, weakness, unexplained weight loss. Cardiovascular: Denies: chest pain, edema, orthopena, palpitations, peripheral edema, syncope. Respiratory: Reports: cough. Denies: hemoptysis, orthopnea, short of breath, sputum production, stridor, wheezing. Objective Last 24 Hrs of Vital Signs/I&O Vital Signs Date Time Temp Pulse Resp B/P Pulse O2 O2 Flow FiO2 Ox Delivery Rate 06/01 0910 98.0 85 20 118/62 93 Room Air 06/01 0007 98.0 77 19 116/64 94 Room Air 05/31 1608 98.6 84 20 112/58 93 05/31 1600 93 Room Air Room Air 05/31 1020 93 Room Air Intake & Output 06/01 1600 06/01 0800 06/01 0000 Intake Total 650 225 Output Total 850 200 Balance -200 25 Intake, IV 650 225 Output, Urine 850 200 Physical Exam General Appearance: Alert, Cooperative, No Acute Distress Cardiovascular: Normal S1, Normal S2 Lungs: Normal Air Movement Abdomen: Normal Bowel Sounds, Soft, No Tenderness Current Medications: Current Medications Sig/Dominique Start time Last Medication Dose Route Stop Time Status Admin Acetaminophen 650 MG Q6P PRN 05/24 2345 AC PO Albuterol Sulfate 3 ML Q4P PRN 05/25 2200 AC 05/29 INH 1919 Bisacodyl 10 MG DAILY 05/28 1815 AC 05/28 ID 1828 Clindamycin 600 MG IQ8 05/30 1645 AC 06/01 Dextrose/Water 50 ML IV 0728 Dextrose/Sodium 1,000 ML Q13H 05/30 1445 AC 06/01 Chloride IV 0604 Docusate Sodium 100 MG BID PRN 05/26 1330 AC PO Heparin Sodium 5,000 UNIT Q8 05/25 0600 AC 05/31 (Porcine) SC 0555 Lactobacillus 1 CAP BID 05/28 1027 AC 05/28 Acidophilus PO 2243 Morphine Sulfate 2 MG Q8P PRN 05/24 2345 DC IV Patient Medication 1 ED .STK-MED ONE 05/31 1401 DC Teaching ED 05/31 1402 Polyethylene Glycol 17 GM DAILY PRN 05/26 1330 AC PO Senna/Docusate Sodium 2 TAB DAILY PRN 05/26 1330 AC PO Tramadol HCl 25 MG Q12P PRN 05/24 2345 DC PO Last 24 Hrs of Lab/Bert Results Last 24 Hrs of Labs/Mics: Laboratory Tests 05/31/16 1412: PT 13.0 H, INR 1.24 H Assessment/Plan Assessment: 85-year-old gentleman with PMH of BPH s/p TURP 2 current admission for generalized weakness for 4 weeks s/p bone biopsy and marrow aspirate # Possible aspiration PNA * consider discontinuing clindamycin as pt improving. Clindamycin day # 12/17. * Failed swallow eval three times, currently nothing by mouth. * On IV fluids D5 half at 75 mL per hour Had a family meeting this morning with the son the and son's best front who was aware of the situation. Given update on medical issues concerning the patient was offered the options of PEG tube placement versus hospice. Family and patient wish to proceed with PEG tube placement and eventual short-term rehabilitation placement. # Possible multiple myeloma Heme on board appreciate recommendations Flow cytometry pending increased kappa light chains, biopsy results pending # Hypercalcemia pending # Hypokalemia improved Diet: NPO DVT prophylaxis: subcutaneous heparin and alps FULL CODE Problem List: 1. Multiple myeloma 2. Lytic bone lesions on xray 3. Multiple falls 4. Failure to thrive 5. Hypercalcemia Pain Ratin Pain Location: na Pain Goal: Pain 4 or less Pain Plan: CURRENT REGIMEN Tomorrow's Labs & Rationales: CBC/BEP/CA
--- NOTE | 2016-06-01 09:00 | NUR ---
NURSING NOTE: PT REFUSING TO WORK WITH PT THIS AM AND ALSO REFUSING AM LABS. PT BECOMING AGITATED AND REFUSING TO DISCUSS IT FURTHER AT THIS TIME. [facility] SPA[facility] #[id number] AWARE. PATIENT SAFETY MONITOR REMAINS IN PLACE. WILL CONTINUE TO MONITOR.
[2016-06-01 09:10] VITALS: BP 118/62
--- NOTE | 2016-06-01 12:27 | Cons- Psychiatry ---
Psychiatric Consult Date of Consult: 06/01/16 Reason for Consult: "Competence evaluation." [Note: Revised after discussion with the medical team to read "Evaluate for capacity to make a decision about having a PEG tube placed " SM] History of Present Illness: 85 M to ED with his son, Francisco Nice Jr., on 05/24/2016 at 1526 with CC weakness and not eating for the past few weeks. Admitted for hypercalcemia, cachexia/failure to thrive, SOB and cough, leukocytosis. The patient has a living will provided by his son, Jr. Francisco, yesterday, and a copy is in the chart. One provision in the document prohibits life-prolonging artificial means of feeding. The patient has failed three swallow evaluations, the team is proposing placement of a PEG tube, which the patient had been refusing. The son, Francisco Owen, will be the [id number] if the patient is unable to verbalize understanding of the nature and consequences of health care decisions. Allergies: Coded Allergies: NO KNOWN ALLERGIES (05/24/16) Current Medications: Current Medications Sig/Dominique Start time Last Medication Dose Route Stop Time Status Admin Acetaminophen 650 MG Q6P PRN 05/24 2345 AC PO Albuterol Sulfate 3 ML Q4P PRN 05/25 2200 AC 05/29 INH 1919 Bisacodyl 10 MG DAILY 05/28 1815 AC 05/28 OR 1828 Clindamycin 600 MG IQ8 05/30 1645 AC 06/01 Dextrose/Water 50 ML IV 0728 Dextrose/Sodium 1,000 ML Q13H 05/30 1445 AC 06/01 Chloride IV 0604 Docusate Sodium 100 MG BID PRN 05/26 1330 AC PO Heparin Sodium 5,000 UNIT Q8 05/25 0600 AC 05/31 (Porcine) SC 0555 Lactobacillus 1 CAP BID 05/28 1027 AC 05/28 Acidophilus PO 2243 Morphine Sulfate 2 MG Q8P PRN 05/24 2345 DC IV Patient Medication 1 ED .STK-MED ONE 05/31 1401 DC Teaching ED 05/31 1402 Polyethylene Glycol 17 GM DAILY PRN 05/26 1330 AC PO Senna/Docusate Sodium 2 TAB DAILY PRN 05/26 1330 AC PO Tramadol HCl 25 MG Q12P PRN 05/24 2345 DC PO Past History Past Medical History Neurological: NONE EENT: NONE Cardiovascular: NONE Respiratory: chronic cough Gastrointestinal: NONE Hepatic: NONE Renal: benign prost hyperplasia Musculoskeletal: NONE Psychiatric: NONE Endocrine: NONE Blood Disorders: NONE Cancer(s): NONE 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 Past Surgical History Surgical History: TURP Psychosocial History Physical Limitations (Interventions): Weakness Psychiatric Treatment History Psych Treatment Psychiatric Treatment No (Denies) Diagnosis: Denies Risk Factors: age (under 24/over 65), male Substance Use/Abuse History Drug Use/Abuse Substances Used/Abused No (Denies) Substance Abuse Treatment Substance Abuse Treatment Past Substance Abuse [place] No Assessment/Plan Mental Status Orientation: Person, Place, Situation Affect: Appropriate Speech: WNL (Pt is edentulous) Neuro-vegetative: Hypersomnia Mental Status Exam: Alert and oriented to person, place, month, season. Denies AVH; and presents no andreas delusions. Denies SI/HI, nor history of suicide attempt. Denies symptoms of depression and anxiety. Denies histry of psychiatric diagnosis or treatment. He reports he slept well last night. Folstein/MMSE started, but patient declines to finish at this time, requesting that I return later to complete the exam: "You have come at a bad time; I'm a little fuzzy right now." Deficits noted in orientation, attention and calculation. He is exhibiting some memory impairment, and is unable to do subtraction or spelling at this time. He correctly registers 3 objects and recalls 2 of them. He indentified a pen and a TV. He also repeated a phrase correctly. Upon resumption at 1400, he was able to read and obey, but declined to write a sentence or draw a figure. MMSE score 15/28. The patient reports finishing 8th grade Lab Results: Laboratory Tests 05/31 05/29 05/29 1412 1725 1725 Coagulation PT (9.4 - 12.5 SEC) 13.0 H INR (0.90 - 1.17) 1.24 H Miscellaneous Flow Cytometry Specimen Pending Pending Diffential Diagnosis: Rule out delirium secondary to medical condition Impression: The patient is an 85 y.o. male presenting for weakness for 4 weeks, and now being worked up for possible multiple myeloma. A Folstein/MMSE was initiated to evaluate the patient's cognition and memory, but was stopped temporarily at the patient's request, and resumed several hours later. The score of 15/28 suggests moderate cognitive impairment, mainly with memory function. Despite the low MMSE score, the patient is not delirious, nor psychotic, presents not andreas delusions and denies suicidal ideation. He was able to clearly: 1. Communicate a choice - "I have changed my mind. I want to have the feeding tube now. They gave me a choice of having the tube or dying, and I do not want to right now." 2. Understand the relevant information - He verbalizes understanding that he cannot swallow safely now, and that the PEG feeding tube is the safest and least invasive of the alternatives. 3. Appreciate the situation and its consequences - The patient has insight into his swallowing condition, and understands that without nutrition, he will . 4. He demonstrates appropriate reasoning on how he reached the decision to accept the PEG tube, and studies necessary to implement this, including labs. The finding that the patient has capacity to decide on having the feeding tube is specific, and does not apply to other decisions he may be asked to make. Competence is a broader legal matter to be brought before the court. Please reconsult if other psychiatry matters arise. Thank-you for asking us to participate in Francisco's care. We do not anticipate further visits. Shiv Navas APRN, Pager [phone] Provisional Treatment Plan: .
--- NOTE | 2016-06-01 13:15 | NUR ---
SPEECH THERAPY: PER MD, PT TO UNDERGO PEG TUBE PLACEMENT TODAY. ST CONTINUE TO FOLLOW CLINICALLY INDICATED.
--- NOTE | 2016-06-01 13:28 | PN- Hematology ---
Subjective Subjective: Patient is NPO secondary to failing swallow evaluation. He wants to eat. Review of Systems Constitutional: Reports: weakness. Denies: chills, fever. Cardiovascular: Denies: chest pain, peripheral edema. Gastrointestinal: Denies: abdominal pain, constipation, diarrhea, melena, nausea. Musculoskeletal: Denies: back pain. Skin: Denies: rash. Neurological/Psychological: Denies: anxiety. Immunologic/Allergic: Denies: splenectomy, lymphadenopathy. All Other Systems: Reviewed and Negative Objective Vital Signs and I&Os Vital Signs Date Time Temp Pulse Resp B/P Pulse O2 O2 Flow FiO2 Ox Delivery Rate 06/01 0910 98.0 85 20 118/62 93 Room Air 06/01 0800 93 Room Air Room Air 06/01 0007 98.0 77 19 116/64 94 Room Air 05/31 1608 98.6 84 20 112/58 93 05/31 1600 93 Room Air Room Air Intake & Output 06/01 1600 06/01 0800 06/01 0000 05/31 1600 05/31 0800 05/31 0000 Intake Total 650 225 600 625 600 Output Total 850 200 144 105 9910 Balance -200 25 -100 -175 -550 Intake, IV 650 225 600 625 600 Intake, Oral 0 0 Number 1 Bowel Movements Output, Urine 850 200 867 016 8631 Physical Exam: General Appearance: alert, awake, cachetic, oriented to self, location, month, but not year Head: atraumatic Ears, Nose, Throat: dry mucosa Respiratory: chest non-tender, no respiratory distress, crackles Cardiovascular: regular rate/rhythm Abdomen: normal bowel sounds, soft, non-tender, no organomegaly Extremities: pedal edema Neurologic/Psychiatric: awake, alert, oriented to self, location, but not month or year Skin: normal color Current Medications: Current Medications Sig/Dominique Start time Last Medication Dose Route Stop Time Status Admin Acetaminophen 650 MG Q6P PRN 05/24 2345 AC PO Albuterol Sulfate 3 ML Q4P PRN 05/25 2200 AC 05/29 INH 1919 Bisacodyl 10 MG DAILY 05/28 1815 AC 05/28 [place] 1828 Clindamycin 600 MG IQ8 05/30 1645 AC 06/01 Dextrose/Water 50 ML IV 0728 Dextrose/Sodium 1,000 ML Q13H 05/30 1445 AC 06/01 Chloride IV 0604 Docusate Sodium 100 MG BID PRN 05/26 1330 AC PO Heparin Sodium 5,000 UNIT Q8 05/25 0600 AC 05/31 (Porcine) SC 0555 Lactobacillus 1 CAP BID 05/28 1027 AC 05/28 Acidophilus PO 2243 Morphine Sulfate 2 MG Q8P PRN 05/24 2345 DC IV Patient Medication 1 ED .[facility] ONE 05/31 1401 DC Teaching ED 05/31 1402 Polyethylene Glycol 17 GM DAILY PRN 05/26 1330 AC PO Senna/Docusate Sodium 2 TAB DAILY PRN 05/26 1330 AC PO Tramadol HCl 25 MG Q12P PRN 05/24 2345 DC PO Results Last 24 Hours of Lab Results: Laboratory Tests 05/31 1412 Coagulation PT (9.4 - 12.5 SEC) 13.0 H INR (0.90 - 1.17) 1.24 H Assessment/Plan Assessment/Recommendations: Mr. Nice is an 85-year-old with history of BPH s/p TURB who presents with significant weakness, weight loss, and decondition. He is cachetic on examination. He has still able to drive up until last week. On admission he was noted to have elevated calcium at 13.9, elevate total protein at 11.2, albumin at 3.9, and low PTH. His creatinine and hemoglobin are normal. CT imaging noted some lytic bone lesions. These are concerning for multiple myeloma. Work up in the hospital has revealed numerous bone lesions concerning for multiple myeloma on skeletal survey, M-spike of 2.7, and elevated serum free light chain ratio (kappa light chain predominance). His calcium was elevated and has improved with pamidronate 60 mg. Mental status has improved. Bone marrow was done by IR and pathology is pending. Immunofixation, beta-2 microglobulin, and immunoglobulin are pending. Bone marrow biopsy pending. Work up so far has revealed multiple myeloma. Due to his age and frail condition, aggressive options are limited. Melphalan with prednisone can be a good option for the patient. He continues to have some improvement in his mental status. He is still NPO. Speech evaluation is noted aspiration risk. Primary team is discussing with patient and family on PEG placement. PT evaluation is pending. Per nursing, patient has been refusing PT. Recommendations: 1. Follow up Serum immunofixation, beta-2 microglobulin, and serum immunoglobulin level (IgA, IgG, IgM), please ensure these are sent 2. Follow up bone marrow results 3. Follow up as outpatient to discuss therapy likely melphalan/prednisone 4. PT evaluation 5. Check calcium level to ensure patient does not have hypocalcemia from bisphosphate Please call [phone] with any questions or concerns. Problem List: 1. Multiple myeloma 2. Lytic bone lesions on xray 3. Failure to thrive 4. Hypercalcemia 5. Weakness
--- NOTE | 2016-06-01 14:59 | NUR ---
PHYSICAL THERAPY- ATTEMPTED TO SEE PT x2 THIS DAY (ONCE IN AM, ONCE IN PM). PT KINDLY REFUSED PARTICIPATION W/ P.T. AND OOB BOTH ATTEMPTS. WILL CONT TO TX ABLE.
--- NOTE | 2016-06-01 15:12 | NUR ---
NURSING NOTE: PT SEEN BY PSYCH AND DEEMED COMPETENT TO MAKE DECISION TO HAVE PEG TUBE PLACED. AWAITING TIME FOR PROCEEDURE.
--- NOTE | 2016-06-01 16:03 | NUR ---
Late Note: Referral received on 05/29/16 via electronic order checker packer processer. This patient is an 85 year old man, who was admitted to the hospital on 05/24/16 with hypercalcemia in the setting of metastatic disease. Reason for Referral "son very distressed, no coping skills, pt. not agreeable to chemo, refuses IV". Case discussed at [facility]'s both Sunday and Sunday of this week. Patient with fluctuating mental status, and inconsistent medical decision making, specifically centered around POC. Today, patient was scheduled for PEG insertion, which the patients son was also advocating for. Curiously, patients son also produced the patients Advance Directive stating that he did not want a feeding tube. Psychiatric consult performed, and patient clearly told the policy specialist that he wanted to hve the PEG tube, because he wasn't ready to . Case discussed with RN. Follow to support case managements efforst for safe, appropriate discharge planning.
[2016-06-01 16:40] VITALS: BP 118/62
--- NOTE | 2016-06-01 19:30 | NUR ---
NURSING NOTE: [facility] SPAIN #[id number] NOTIFIED OF MULTIPLE UNSUCCESSFUL ATTEMPTS TO PLACE NGT BY NURSE AND NURSE STOCK WORKER. RAUL SPAIN WILL DISCONTINUE THE ORDER FOR THE NGT AND THE PEG TUBE PLACEMENT BY IR AND REQUEST A GI CONSULT FOR PEG TUBE PLACEMENT.
--- NOTE | 2016-06-01 22:38 | NUR ---
CALL RECEIVED FROM PATIENT'S SON AT ABOUT 0. SON UPSET THAT NO ONE CALLED TO NOTIFY HIM THAT THE PEG TUBE WAS NOT PLACE TODAY. THIS NURSE EXPLAINED TO HIM THAT THE PROCEDURE WILL BE DONE TOMORROW PER THE NURSE REPORT. PATIENT'S SON WAS VERY UNHAPPY WITH THE SEQUENCE OF EVENTS. RAVEN THE NURSE DISTILLATION OPERATOR HELPER NOTIFIED. PAGE OUT TO INSURANCE COMPLIANCE ANALYST. AWAITING CALL BACK.
[2016-06-02 00:14] VITALS: BP 126/64
[2016-06-02 08:00] VITALS: BP 118/58
[2016-06-02 08:19] LABS: ABSOLUTE EOSINOPHIL COUNT 0 /CUMM (0.0-0.7)
[2016-06-02 08:33] LABS: ABSOLUTE BASOPHIL COUNT 0 /CUMM (0.0-0.2); ABSOLUTE GRANULOCYTE CT 13.3 /CUMM (1.4-6.5); ABSOLUTE MONOCYTE COUNT 1.9 /CUMM (0.10-0.60); BASOPHIL % 0.2 % (0.0-2.0); EOSINOPHIL % 0 % (0-5); HEMATOCRIT 34.8 % (42-52); MEAN CORPUSCULAR HGB CONC 34.5 G/DL (33.0-37.0); MEAN CORPUSCULAR VOLUME 92.7 FL (80.0-94.0); MEAN PLATELET VOLUME 8.3 FL (7.4-10.4); PLATELET COUNT 343 /CUMM (130-400); RBC DISTRIBUTION WIDTH 13.9 % (11.5-14.5); RED BLOOD CELL CT 3.75 /CUMM (4.70-6.10)
[2016-06-02 08:53] LABS: WHITE BLOOD CELL COUNT 16.2 /CUMM (4.8-10.8)
--- NOTE | 2016-06-02 08:56 | PN- Housestaff ---
Subjective Follow-up For: Multiple myeloma, deconditioning, failure to thrive Subjective: seen and examined patient, complains of b/l feet pain. Denies fevers, chills, shortness of breath, abdominal pain. Son and at bedside. Explained that we are in touch with both IR and GI regarding peg tube placement today. Review of Systems Constitutional: Denies: chills, diaphoresis, fever, malaise, weakness, unexplained weight loss. Cardiovascular: Denies: see HPI, chest pain, edema, orthopena, palpitations, peripheral edema, syncope. Respiratory: Denies: cough, hemoptysis, orthopnea, short of breath, sputum production, stridor, wheezing. Objective Last 24 Hrs of Vital Signs/I&O Vital Signs Date Time Temp Pulse Resp B/P Pulse O2 O2 Flow FiO2 Ox Delivery Rate 06/02 1024 92 Room Air 06/02 0934 Room Air Room Air 06/02 0800 98.5 90 20 118/58 93 Room Air 06/02 0014 98.3 84 20 126/64 92 Room Air 06/01 1659 Room Air Room Air 06/01 1640 98.4 87 20 118/62 92 06/01 1600 93 Room Air Room Air 06/01 1430 94 Room Air Intake & Output 06/02 1600 06/02 0800 06/02 0000 Intake Total 525 525 Output Total 350 Balance 175 525 Intake, IV 525 525 Intake, Oral 0 0 Output, Urine 350 Physical Exam General Appearance: No Acute Distress, cachexic Skin: No Significant Lesion Cardiovascular: Normal S1, Normal S2 Lungs: Normal Air Movement Abdomen: Normal Bowel Sounds, Soft, No Tenderness Extremities: No Edema Current Medications: Current Medications Sig/Dominique Start time Last Medication Dose Route Stop Time Status Admin Acetaminophen 650 MG Q6P PRN 05/24 2345 AC PO Albuterol Sulfate 3 ML Q4P PRN 05/25 2200 AC 05/29 INH 1919 Ampicillin Sodium/ 1,500 MG Q6 06/02 1200 AC Sulbactam Sodium IV Sodium Chloride 100 ML Bisacodyl 10 MG DAILY 05/28 1815 AC 05/28 [place] 1828 Cefazolin Sodium 1,000 MG ONCE ONE 06/02 1100 DC IV 06/02 1101 Clindamycin 600 MG IQ8 05/30 1645 DC 06/02 Dextrose/Water 50 ML IV 0902 Dextrose/Sodium 1,000 ML Q13H 05/30 1445 AC 06/02 Chloride IV 0700 Docusate Sodium 100 MG BID PRN 05/26 1330 AC PO Heparin Sodium 5,000 UNIT Q8 05/25 0600 AC 06/02 (Porcine) SC 0531 Lactobacillus 1 CAP BID 05/28 1027 AC 05/28 Acidophilus PO 2243 Patient Medication 1 ED .STK-MED ONE 06/02 1348 DC Teaching ED 06/02 1349 Polyethylene Glycol 17 GM DAILY PRN 05/26 1330 AC PO Potassium Chloride 10 MEQ Q1H 06/02 1230 DC IV 06/02 1331 Potassium Chloride 10 MEQ Q1H 06/02 1030 DC IV 06/02 1131 Potassium Chloride 10 MEQ Q1H 06/02 0915 DC 06/02 IV 06/02 1016 1137 Senna/Docusate Sodium 2 TAB DAILY PRN 05/26 1330 AC PO Last 24 Hrs of Lab/Bert Results Last 24 Hrs of Labs/Mics: Laboratory Tests 06/02/16 1000: Immunoelectrophoresis Pending 06/02/16 0645: Anion Gap 9, Estimated GFR > 60, BUN/Creatinine Ratio 15.0, Calcium 6.9 L, Magnesium 1.4 L, Albumin 2.7 L, CBC w Diff NO MAN DIFF REQ, RBC 3.75 L, MCV 92.7, MCH 32.0 H, RDW 13.9, MPV 8.3, Gran % 82.0 H, Lymphocytes % 6.1 L, Monocytes % 11.7 H, Eosinophils % 0, Basophils % 0.2, Absolute Granulocytes 13.3 H, Absolute Lymphocytes 1.0 L, Absolute Monocytes 1.9 H, Absolute Eosinophils 0, Absolute Basophils 0, PUBS MCHC 34.5 Assessment/Plan Assessment: 85-year-old gentleman with PMH of BPH s/p TURP 2 current admission for generalized weakness for 4 weeks s/p bone biopsy and marrow aspirate Assessment and plan: # Aspiration risk * completed course of clindamycin for aspiration pneumonia * Failed swallow eval three times, currently nothing by mouth. Peg tube will be placed by GI today * On IV fluids D5 half at 75 mL per hour # Possible multiple myeloma Heme on board appreciate recommendations Flow cytometry pending increased kappa light chains, biopsy results pending Called lab regarding Serum immunofixation, beta-2 microglobulin, and serum immunoglobulin level (IgA, IgG, IgM). some of the tests were not sent as they need approval from pathologist. # Hypocalcemia/hypokalemia/hypomagnesmia corrected ca is 7.9 potassium and mag repleted will repeat again at 8pm Diet: NPO DVT prophylaxis: subcutaneous heparin and alps FULL CODE Problem List: 1. Multiple myeloma 2. Hypocalcemia 3. Failure to thrive 4. S/P percutaneous endoscopic gastrostomy (PEG) tube placement Pain Ratin Pain Location: na Pain Goal: Pain 4 or less Pain Plan: current regimen Tomorrow's Labs & Rationales: cbc, bep, ca, mag, phosp
--- NOTE | 2016-06-02 09:51 | PN- Hematology ---
Subjective Subjective: He was unable to get PEG tube in place yesterday due to unable to pass NG tubing. He denies any issues today. Review of Systems Constitutional: Denies: chills, fever. Cardiovascular: Denies: chest pain. Gastrointestinal: Denies: abdominal pain. Neurological/Psychological: Reports: confusion. All Other Systems: Reviewed and Negative Objective Vital Signs and I&Os Vital Signs Date Time Temp Pulse Resp B/P Pulse O2 O2 Flow FiO2 Ox Delivery Rate 06/02 0934 Room Air Room Air 06/02 0800 98.5 90 20 118/58 93 Room Air 06/02 0014 98.3 84 20 126/64 92 Room Air 06/01 1659 Room Air Room Air 06/01 1640 98.4 87 20 118/62 92 06/01 1600 93 Room Air Room Air 06/01 1430 94 Room Air Intake & Output 06/02 1600 06/02 0800 06/02 0000 06/01 1600 06/01 0800 06/01 0000 Intake Total 525 525 600 650 225 Output Total 350 650 850 200 Balance 175 525 -50 -200 25 Intake, IV 525 525 600 650 225 Intake, Oral 0 0 0 Output, Urine 350 650 850 200 Physical Exam: General Appearance: alert, awake, cachetic, oriented to self, location, month, but not year Head: atraumatic Ears, Nose, Throat: dry mucosa Respiratory: chest non-tender, no respiratory distress, crackles Cardiovascular: regular rate/rhythm Abdomen: normal bowel sounds, soft, non-tender, no organomegaly Extremities: pedal edema. Bilateral feet tender to palpation. More on left. No erythema. Neurologic/Psychiatric: awake, alert, oriented to self, location, but not month or year Skin: normal color Current Medications: Current Medications Sig/Dominique Start time Last Medication Dose Route Stop Time Status Admin Acetaminophen 650 MG Q6P PRN 05/24 2345 AC PO Albuterol Sulfate 3 ML Q4P PRN 05/25 2200 AC 05/29 INH 1919 Bisacodyl 10 MG DAILY 05/28 1815 AC 05/28 [place] 1828 Clindamycin 600 MG IQ8 05/30 1645 AC 06/02 Dextrose/Water 50 ML IV 0902 Dextrose/Sodium 1,000 ML Q13H 05/30 1445 AC 06/02 Chloride IV 0700 Docusate Sodium 100 MG BID PRN 05/26 1330 AC PO Heparin Sodium 5,000 UNIT Q8 05/25 0600 AC 06/02 (Porcine) SC 0531 Lactobacillus 1 CAP BID 05/28 1027 AC 05/28 Acidophilus PO 2243 Polyethylene Glycol 17 GM DAILY PRN 05/26 1330 AC PO Potassium Chloride 10 MEQ Q1H 06/02 0915 AC IV 06/02 1016 Senna/Docusate Sodium 2 TAB DAILY PRN 05/26 1330 AC PO Results Last 24 Hours of Lab Results: Laboratory Tests 06/02 0645 Chemistry Sodium (137 - 145 mmol/L) 136 L Potassium (3.5 - 5.1 mmol/L) 3.0 L Chloride (98 - 107 mmol/L) 99 Carbon Dioxide (22 - 30 mmol/L) 28 Anion Gap (5 - 16) 9 BUN (9 - 20 mg/dL) 9 Creatinine (0.7 - 1.2 mg/dL) 0.6 L Estimated GFR (>60 ml/min) > 60 BUN/Creatinine Ratio (7 - 25 %) 15.0 Calcium (8.4 - 10.2 mg/dL) 6.9 L Magnesium (1.6 - 2.3 mg/dL) Pending Hematology CBC w Diff Pending WBC Pending RBC Pending Hgb Pending Hct Pending MCV Pending MCH Pending RDW Pending Plt Count Pending MPV Pending Gran % Pending Lymphocytes % Pending Monocytes % Pending Eosinophils % Pending Basophils % Pending Absolute Granulocytes Pending Absolute Lymphocytes Pending Absolute Monocytes Pending Absolute Eosinophils Pending Absolute Basophils Pending PUBS MCHC Pending Flow cytometry: 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 Plasma cells in this marrow specimen are CD20(kamar)+ CD38++ CD28+ CD56+ CD117- CD45- and monoclonal kappa light chain-restricted. In addition, there is a subset of kappa-dominant B-cells possibly caused by paraprotein agglutination. Urge close correlation with tissue histology and molecular markers for definitive characterization. Assessment/Plan Assessment/Recommendations: Mr. Nice is an 85-year-old with history of BPH s/p TURB who presents with significant weakness, weight loss, and decondition. He is cachetic on examination. He has still able to drive up until last week. On admission he was noted to have elevated calcium at 13.9, elevate total protein at 11.2, albumin at 3.9, and low PTH. His creatinine and hemoglobin are normal. CT imaging noted some lytic bone lesions. These are concerning for multiple myeloma. Bone marrow was done by IR and pathology is pending. Immunofixation, beta-2 microglobulin, and immunoglobulin are pending. Flow cytometry demonstrated plasma cell dyscrasia. Work up so far has revealed multiple myeloma. Due to his age and frail condition, aggressive options are limited. Melphalan with prednisone can be a good option for the patient. He is still NPO. Speech evaluation is noted aspiration risk. PEG placement is pending. PT evaluation is pending. Per nursing, patient has been refusing PT. Calcium is low today at 6.9 and is likely from pamidronate. Can consider calcium repletion. Recommendations: 1. Please ensure that serum immunofixation, beta-2 microglobulin, and serum immunoglobulin level (IgA, IgG, IgM) are sent 2. Follow up bone marrow results 3. Follow up as outpatient to discuss therapy likely melphalan/prednisone 4. PT evaluation 5. PEG placement as per GI 6. Gentle calcium repletion Please call [phone] with any questions or concerns. Problem List: 1. Multiple myeloma 2. Lytic bone lesions on xray 3. Failure to thrive 4. Hypercalcemia
--- NOTE | 2016-06-02 11:54 | RADIOLOGY REPORT ---
EXAMINATION: CHEST 2 VIEWS CLINICAL INFORMATION: Rule out aspiration. Elevated white blood cell count. On antibiotics. COMPARISON: Portable chest x-ray dated 05/26/[address] scan of the chest dated 05/24/2016. TECHNIQUE: PA and lateral views of the chest were obtained. FINDINGS: The lungs are hyperexpanded. There are coarsened interstitial markings consistent with emphysematous changes. There is a retrocardiac opacity and a small left pleural effusion which was not present on the prior exams. There is no edema or pneumothorax. The cardiac and mediastinal silhouettes are within normal limits for technique. No acute bony abnormality is seen. IMPRESSION: Hyperexpanded lungs with coarsened interstitial markings consistent with emphysematous changes. New retrocardiac opacity and small left pleural effusion suspicious for pneumonia. Follow-up chest x-ray in 6-8 weeks following therapy is recommended to demonstrate resolution.
--- NOTE | 2016-06-02 13:13 | NUR ---
PHYSICAL THERAPY- ATTEMPTED TO SEE PT THIS AM x2, PT SLEEPING, ABLE TO AROUSE W/ MIN VERBAL STIMULI, REFUSED OOB ON BOTH ATTEMPTS. PT CURRENTLY ON 2-3x/WEEK POC FOR P.T., OOB W/ NSG ABLE IN RECLINER. PT HAS BEEN SEEN 2x THIS WEEK PER POC, FURTHER ATTEMPTS LIMITED BY PT REFUSALS. WILL CONT TO FOLLOW APPROPRIATE/ABLE NEXT WEEK.
--- NOTE | 2016-06-02 14:22 | Proc Note Endoscopy ---
Endoscopy Procedure Medical History: unchanged (see meditech) Mental Status: alert/oriented Heart/Lung Eval Prior to Sedation: within normal limits Candidate for Sedation? Yes Procedure Date: 06/02/16 Procedure Type: EGD with PEG placement Swimming Coach Or Instructor: Aidan Padron MD ASA Classification: IV Indications: Dysphagia, failed swallowing study. Instrument: diagnostic gastroscope Meds Received: MAC Patient's Tolerance: good Complications: none Extent Reached: second part of duodenum Procedure: After getting written informed consent the patient was placed in the left lateral decubitus position with pulse oximetry, cardiac monitoring, and supplemental oxygen given. A bite block was inserted and IV sedation was given until the desired effect was achieved. A high definition upper Olympus endoscope was then inserted into the mouth and advanced to the second portion of the duodenum with little difficulty. Retroflexed views and photodocumentation was obtained. After inspection of the upper GI tract as described above the location of the PEG tube was determined by transillumination and finger indentation. This area was located in the antrum of the stomach and the left upper quadrant of the abdomen. The skin was then cleaned with Betadine and draped in a sterile fashion. 1% lidocaine without epinephrine was used to anesthetize the skin and the finder needle was seen entering the stomach endoscopically. A scalpel was used to make a 1 cm wide incision half a centimeter deep. An 18-gauge needle with catheter sheath was then inserted into the gastric lumen, and a floppy plastic wire was fed through the sheath, grabbed with a snare, and removed from the patient's mouth. The PEG tube was then attached to the wire and pulled antegrade without difficulty until the bumper abutted the gastric wall. The scope was then reintroduced to the patient's mouth and endoscopic confirmation of the PEG tube was obtained. The scope was then removed from the patient and the procedure was terminated. Findings: Esophagus: The esophageal mucosa was grossly normal appearance and there was a appearing Z line at 38 cm the incisors. Stomach: The gastric mucosa was grossly normal in appearance. There were no ulcers, erosions, or masses appreciated. Distention and peristalsis of the stomach appeared normal. Retroflexed views revealed a small hiatal hernia. As stated in the procedure section of this report a feeding tube was placed without incident. Duodenum: The duodenal bulb was moderately erythematous with several scattered erosions, but there were no ulcers appreciated. The duodenal sweep and folds are grossly normal in appearance. Impression: 1. Moderate erosive duodenitis. 2. Small hiatal hernia. 3. Grossly normal gastric mucosa status post PEG placement. Recommendations: 1. Would monitor the PEG site for signs of infection or bleeding. 2. Would place the patient on an oral PPI to be administered per the G-tube. 3. If no complications would start tube feeds in the a.m. and it is okay to use the tube for medications now. CC: FRANDY GUTIERREZ,LEILA Weber
[2016-06-02 16:53] VITALS: BP 120/67
--- NOTE | 2016-06-02 17:29 | NUR ---
SPEECH THERAPY: PER RN, PT UNDERWENT PEG TUBE PLACEMENT TODAY; CURRENTLY LETHARGIC FOLLOWING PROCEDURE. ST CONTINUE TO FOLLOW CLINICALLY INDICATED.
--- NOTE | 2016-06-02 17:41 | PN- Att Addend ---
Attending MD Review Statement Attending Statement Attending MD Statement: examined this patient, discuss w/resident/PA/SHOE SHANKER, agreed w/resident/PA/SHOE SHANKER, reviewed EMR data (avail), discussed w/nursing, discussed w/ case mgmt Attending Assessment/Plan: aspiration pneumonia- cont abx. dc clindamycin, start unasyn. wbc increased , no diarrhea. Pt to get PEG tube placed today by GI. d/w pt and pts son at bedside the care plan. Hypercalcemia- resolved. calcium is on lower side now - likel secondary to bisphosphonates and poor nutritional intake secondary to being NPO for aspiration issues. will start calcium supplement once we start tube feeds ? Multiple myeloma- plan per heme/onc Disposition- pt is very deconditioned so will need MELISSA. barriers to discharge- pt needing sitter .
--- NOTE | 2016-06-02 21:45 | NUR ---
LATE ENTRY: PT LEFT FLOOR AT 1330 WITH DISTRIBUTION FOR PEG TUBE PLACEMENT, ALERT, ORIENTED/CONFUSED AT TIMES, ANCEF 1G WAS SENT DOWN WITH PATIENT IN BINDER. PT RETURNED TO FLOOR AT 1600, SLEEPING, PEG SITE TO LUQ, DRY STERILE DRESSING C/D/I. WILL CONTINUE TO MONITOR.
[2016-06-03 00:09] VITALS: BP 120/57
[2016-06-03 08:00] VITALS: BP 116/60
[2016-06-03 08:27] LABS: ABSOLUTE BASOPHIL COUNT 0.1 /CUMM (0.0-0.2); ABSOLUTE EOSINOPHIL COUNT 0 /CUMM (0.0-0.7); ABSOLUTE GRANULOCYTE CT 16.3 /CUMM (1.4-6.5); ABSOLUTE LYMPH COUNT 0.9 /CUMM (1.2-3.4); ABSOLUTE MONOCYTE COUNT 1.2 /CUMM (0.10-0.60); BASOPHIL % 0.3 % (0.0-2.0); EOSINOPHIL % 0 % (0-5); GRANULOCYTE % 88.6 % (42.2-75.2); HEMATOCRIT 35.2 % (42-52); MEAN CORPUSCULAR HGB 31.9 PG (27.0-31.0); MEAN CORPUSCULAR HGB CONC 34.2 G/DL (33.0-37.0); MEAN CORPUSCULAR VOLUME 93.2 FL (80.0-94.0); MEAN PLATELET VOLUME 8.2 FL (7.4-10.4); PLATELET COUNT 378 /CUMM (130-400); RBC DISTRIBUTION WIDTH 13.9 % (11.5-14.5); RED BLOOD CELL CT 3.78 /CUMM (4.70-6.10); WHITE BLOOD CELL COUNT 18.4 /CUMM (4.8-10.8)
--- NOTE | 2016-06-03 11:36 | PN- Housestaff ---
MANSI GUTIERREZ,MIGUEL 06/03/16 1018: Subjective Follow-up For: WEAKENSS Colon mass. Subjective: Saw pt at bedside this AM. He was sitting up in bed and looked comfortable. He denied any pain. Stated that he didn't have any pain. No complaitns. Spoke with nurses a.m. and PEG tube was working well for medications. No sign of infection or bleeding. We will start tube feeds this AM. Review of Systems Constitutional: Denies: chills, malaise, weakness. EENTM: Reports: no symptoms. Cardiovascular: Denies: chest pain, palpitations. Respiratory: Denies: hemoptysis, short of breath. Gastrointestinal: Reports: no symptoms. Genitourinary: Reports: no symptoms. Musculoskeletal: Reports: no symptoms. Skin: Reports: no symptoms. Objective Last 24 Hrs of Vital Signs/I&O Vital Signs Date Time Temp Pulse Resp B/P Pulse O2 O2 Flow FiO2 Ox Delivery Rate 06/03 0844 92 Room Air 06/03 0800 93 Room Air Room Air 06/03 0800 98.1 77 20 116/60 94 Room Air 06/03 0009 97.8 82 18 120/57 94 Room Air 06/02 1705 95 Room Air Room Air 06/02 1653 98.0 90 18 120/67 91 06/02 1604 Room Air Room Air 06/02 1024 92 Room Air Intake & Output 06/03 1600 06/03 0800 06/03 0000 Intake Total 800 700 Output Total 425 600 Balance 375 100 Intake, IV 800 700 Output, Urine 425 600 Physical Exam General Appearance: Alert, Oriented X3, Cooperative, No Acute Distress Skin: No Rashes, No Breakdown, No Significant Lesion HEENT: Atraumatic, PERRLA, EOMI Neck: Supple Cardiovascular: Regular Rate, Normal S1, Normal S2 Lungs: Clear to Auscultation Abdomen: Soft, No Tenderness Neurological: Normal Gait, Normal Speech Extremities: No Cyanosis, No Edema Current Medications: Current Medications Sig/Dominique Start time Last Medication Dose Route Stop Time Status Admin Acetaminophen 650 MG Q6P PRN 05/24 2345 AC PO Albuterol Sulfate 3 ML Q4P PRN 05/25 2200 AC 05/29 INH 1919 Ampicillin Sodium/ 1,500 MG Q6 06/02 1200 AC 06/03 Sulbactam Sodium IV 0557 Sodium Chloride 100 ML Bisacodyl 10 MG DAILY 05/28 1815 AC 05/28 OR 1828 Calcium Gluconate 1 GM ONCE ONE 06/02 2300 DC 06/03 Sodium Chloride 100 ML IV 06/02 2359 0022 Cefazolin Sodium 1,000 MG ONCE ONE 06/02 1100 DC IV 06/02 1101 Chlorhexidine 1 GM .STK-MED ONE 06/02 1441 DC Gluconate TOP 06/02 1442 Clindamycin 600 MG IQ8 05/30 1645 DC 06/02 Dextrose/Water 50 ML IV 0902 Dextrose/Sodium 1,000 ML Q13H 05/30 1445 AC 06/03 Chloride IV 0714 Docusate Sodium 100 MG BID PRN 05/26 1330 AC PO Heparin Sodium 5,000 UNIT Q8 05/25 0600 AC 06/02 (Porcine) SC 0531 Lactobacillus 1 CAP BID 05/28 1027 AC 06/03 Acidophilus PO 1004 Magnesium Sulfate 1 GM ONCE ONE 06/02 2245 CAN Dextrose/Water 100 ML IV 06/03 0244 Magnesium Sulfate 1 GM Q2H 06/02 1830 DC 06/03 Dextrose/Water 100 ML IV 06/02 2229 0339 Magnesium Sulfate 1 GM Q2H 06/02 1430 DC 06/02 Dextrose/Water 100 ML IV 06/02 1829 2246 Omeprazole 20 MG DAILY AC 06/02 1556 AC PO Patient Medication 1 ED .STK-MED ONE 06/02 1348 DC Teaching ED 06/02 1349 Polyethylene Glycol 17 GM DAILY PRN 05/26 1330 AC PO Potassium Chloride 10 MEQ .STK-MED ONE 06/03 0126 DC IV 06/03 0127 Potassium Chloride 40 MEQ ONCE ONE 06/02 2245 CAN PO 06/02 2246 Potassium Chloride 10 MEQ Q1H 06/02 1230 DC 06/03 IV 06/02 1331 0305 Potassium Chloride 10 MEQ Q1H 06/02 1030 DC 06/02 IV 06/02 1131 2145 Senna/Docusate Sodium 2 TAB DAILY PRN 05/26 1330 AC PO Assessment/Plan Assessment: 85-year-old gentleman with PMH of BPH s/p TURP 2 current admission for generalized weakness for 4 weeks s/p bone biopsy and marrow aspirate Assessment and plan: # Aspiration risk * completed course of clindamycin for aspiration pneumonia * Failed swallow eval three times, currently nothing by mouth. * On IV fluids D5 half at 75 mL per hour. * Carafate has been ordered this AM. Patient will likely start sometime tonight. Spoke with nutrition, they are aware. * Will change his prilosec to Pepsid today. # Possible multiple myeloma: Of note, this a.m. patient had white count 18.4. This is increased from 16 the day before. Patient is not on steroids. He is being treated with Unasyn. Finished 5 day course of clindamycin. He has been afebrile. * Heme on board appreciate recommendations Flow cytometry pending * increased kappa light chains, biopsy results pending * Called lab regarding Serum immunofixation, beta-2 microglobulin, and serum immunoglobulin level (IgA, IgG, IgM). some of the tests were not sent as they need approval from pathologist. # Hypocalcemia/hypokalemia/hypomagnesmia corrected ca is 7.9 potassium and mag repleted will repeat again at 8pm Diet: NPO DVT prophylaxis: subcutaneous heparin and alps FULL CODE Problem List: 1. Lytic bone lesions on xray 2. Multiple myeloma 3. Hypercalcemia Pain Ratin Pain Location: None Pain Goal: Remain pain free Pain Plan: None Tomorrow's Labs & Rationales: CVC, BP, magnesium, QUAN GUTIERREZ,SELINA 06/04/16 0010: Attending MD Review Statement Attending Statement Attending MD Statement: examined this patient, discuss w/resident/PA/GENERAL MAINTENANCE HELPER, agreed w/resident/PA/GENERAL MAINTENANCE HELPER, reviewed EMR data (avail), discussed with nursing, amended to note Attending Assessment/Plan: The patient was seen and discussed with house staff. Tube feedings begun. Agree with plan of care as outlined.
[2016-06-03 23:45] VITALS: BP 114/60
[2016-06-04 08:00] VITALS: BP 112/60
[2016-06-04 08:01] LABS: ABSOLUTE BASOPHIL COUNT 0 /CUMM (0.0-0.2); ABSOLUTE EOSINOPHIL COUNT 0 /CUMM (0.0-0.7); ABSOLUTE GRANULOCYTE CT 12.8 /CUMM (1.4-6.5); ABSOLUTE LYMPH COUNT 0.8 /CUMM (1.2-3.4); ABSOLUTE MONOCYTE COUNT 1.2 /CUMM (0.10-0.60); BASOPHIL % 0.2 % (0.0-2.0); EOSINOPHIL % 0.1 % (0-5); HEMATOCRIT 32.8 % (42-52); MEAN CORPUSCULAR HGB 32.2 PG (27.0-31.0); MEAN CORPUSCULAR HGB CONC 34.7 G/DL (33.0-37.0); MEAN CORPUSCULAR VOLUME 92.9 FL (80.0-94.0); MEAN PLATELET VOLUME 7.9 FL (7.4-10.4); PLATELET COUNT 360 /CUMM (130-400); RBC DISTRIBUTION WIDTH 13.5 % (11.5-14.5); RED BLOOD CELL CT 3.53 /CUMM (4.70-6.10); WHITE BLOOD CELL COUNT 14.8 /CUMM (4.8-10.8)
[2016-06-04 09:05] LABS: GRANULOCYTE % 86.5 % (42.2-75.2)
--- NOTE | 2016-06-04 11:39 | PN- Housestaff ---
CHARMAINE GUTIERREZ,CRISSY 06/04/16 1138: Subjective Follow-up For: : Mass and weakness Subjective: The patient was seen and examined. He didn't have any complaint. He has been tolerating the tube feeds well. Review of Systems Constitutional: Reports: see HPI. Objective Last 24 Hrs of Vital Signs/I&O Vital Signs Date Time Temp Pulse Resp B/P Pulse O2 O2 Flow FiO2 Ox Delivery Rate 06/04 1049 95 Room Air 06/04 0800 Room Air 06/04 0800 98.3 79 22 112/60 93 06/04 0544 94 Room Air 06/04 0000 Room Air 06/03 2345 98.5 87 18 114/60 93 Room Air 06/03 2049 92 Room Air Intake & Output 06/04 1600 06/04 0800 06/04 0000 Intake Total 680 425 Output Total 600 500 Balance 80 -75 Intake, IV 680 300 Intake, Oral 0 Intake, Tube 125 Irrigant Output, Urine 600 500 Physical Exam General Appearance: Alert, Oriented X3, Cooperative Skin: No Rashes, No Breakdown HEENT: PERRLA, EOMI Neck: Supple, No JVD, No thryomegaly Lymphatic: Axillary nl, Cervical nl Cardiovascular: Regular Rate, Normal S1, Normal S2 Lungs: Normal Air Movement, bilateral basal crackles no decreased airway entry Assessment/Plan Assessment: 85-year-old gentleman with PMH of BPH s/p TURP 2 current admission for generalized weakness for 4 weeks s/p bone biopsy and marrow aspirate Assessment and plan: # Aspiration pneumonitis -The patient is status post PEG tube and currently on tube feeds -Continue with IV Unasyn at this point -No issues of fever and if the patient remained stable. We'll switch him to by mouth Augmentin tomorrow 2. Suspicion for multiple myeloma : Of note, this a.m. patient had white count 14,000 this is which is trending down. Patient is not on steroids. He is being treated with Unasyn. Finished 5 day course of clindamycin. He has been afebrile. * Heme on board appreciate recommendations Flow cytometry pending * eta-2 microglobulin, and serum immunoglobulin l * Called lab regarding Serum immunofixation, beta-2 microglobulin, and serum immunoglobulin level (IgA, IgG, IgM). some of the tests were not sent as they need approval from pathologist. # Hypocalcemia/hypokalemia/hypomagnesmia Corrected calcium is still pending at the albumin has been added on and the result is still pending we will replete accordingly Diet: NPO.tube feeds DVT prophylaxis: subcutaneous heparin and alps FULL CODE Problem List: 1. Hypocalcemia 2. Multiple myeloma Pain Ratin Pain Location: back pain Pain Goal: Remain pain free Pain Plan: po tyelnol as needed Tomorrow's Labs & Rationales: cbc and bep SELINA GLASS MD 06/04/16 1615: Attending MD Review Statement Attending Statement Attending MD Statement: examined this patient, discuss w/resident/PA/HEALTH EDUCATION SPECIALIST, agreed w/resident/PA/HEALTH EDUCATION SPECIALIST, reviewed EMR data (avail), discussed with nursing, amended to note Attending Assessment/Plan: The patient was seen and is tolerating TF at current rate. Will increase as tolerated. Discussed with house staff.
[2016-06-05 00:47] VITALS: BP 120/54
[2016-06-05 08:10] VITALS: BP 118/60
[2016-06-05 08:43] LABS: ABSOLUTE BASOPHIL COUNT 0 /CUMM (0.0-0.2); ABSOLUTE EOSINOPHIL COUNT 0 /CUMM (0.0-0.7); ABSOLUTE GRANULOCYTE CT 9.6 /CUMM (1.4-6.5); ABSOLUTE LYMPH COUNT 0.9 /CUMM (1.2-3.4); BASOPHIL % 0.2 % (0.0-2.0); EOSINOPHIL % 0.1 % (0-5); GRANULOCYTE % 83.7 % (42.2-75.2); HEMATOCRIT 31.9 % (42-52); MEAN CORPUSCULAR HGB 31.6 PG (27.0-31.0); MEAN CORPUSCULAR HGB CONC 34.2 G/DL (33.0-37.0); MEAN CORPUSCULAR VOLUME 92.3 FL (80.0-94.0); MEAN PLATELET VOLUME 8.1 FL (7.4-10.4); PLATELET COUNT 395 /CUMM (130-400); RBC DISTRIBUTION WIDTH 13.9 % (11.5-14.5); RED BLOOD CELL CT 3.46 /CUMM (4.70-6.10)
--- NOTE | 2016-06-05 09:03 | PN- Housestaff ---
See Addendum Subjective Follow-up For: Multiple myeloma, deconditioning, failure to thrive Subjective: seen and examined patient, complains of mild abdominal pain at the site of peg tube placement. Denies chills, fevers, shortness of breath or chest pain Review of Systems Constitutional: Denies: chills, diaphoresis, fever, malaise, weakness, unexplained weight loss. Cardiovascular: Denies: chest pain, edema, orthopena, palpitations, peripheral edema, syncope. Respiratory: Denies: cough, hemoptysis, orthopnea, short of breath, sputum production, stridor, wheezing. Objective Last 24 Hrs of Vital Signs/I&O Vital Signs Date Time Temp Pulse Resp B/P Pulse O2 O2 Flow FiO2 Ox Delivery Rate 06/05 1105 94 Room Air Room Air 06/05 0810 99.4 88 18 118/60 94 Room Air 06/05 0047 98.2 89 18 120/54 94 Room Air Intake & Output 06/05 1600 06/05 0800 06/05 0000 Intake Total 1141 984 Output Total 650 650 Balance 491 334 Intake, IV 600 700 Intake, Tube 416 284 Feeding Intake, Tube 125 Irrigant Output, Urine 650 650 Physical Exam General Appearance: No Acute Distress, awake Cardiovascular: Normal S1, Normal S2 Lungs: Normal Air Movement Abdomen: Normal Bowel Sounds, Soft, mild tenderness to palpation, peg tube in place, no erthyema or swelling of surrounding skin Current Medications: Current Medications Sig/Dominique Start time Last Medication Dose Route Stop Time Status Admin Acetaminophen 650 MG .STK-MED ONE 06/04 1425 DC PO 06/04 1426 Acetaminophen 650 MG Q6P PRN 05/24 2345 AC 06/04 PO 1431 Albuterol Sulfate 3 ML Q4P PRN 05/25 2200 AC 05/29 INH 1919 Ampicillin Sodium/ 1,500 MG Q6 06/02 1200 AC 06/05 Sulbactam Sodium IV 0503 Sodium Chloride 100 ML Bisacodyl 10 MG DAILY PRN 06/03 1125 AC 06/04 FL 1059 Calcium Gluconate 1 GM ONCE ONE 06/04 1230 CAN Sodium Chloride 100 ML IV 06/04 1329 Dextrose/Sodium 1,000 ML Q13H 05/30 1445 AC 06/05 Chloride IV 0014 Famotidine 20 MG DAILY 06/03 1122 AC 06/05 PO 0932 Heparin Sodium 5,000 UNIT Q8 05/25 0600 AC 06/05 (Porcine) SC 0504 Lactobacillus 1 CAP BID 05/28 1027 AC 06/05 Acidophilus PO 0932 Polyethylene Glycol 17 GM DAILY PRN 05/26 1330 AC PO Potassium Chloride 10 MEQ ONCE ONE 06/04 1915 DC 06/04 IV 06/04 Potassium Chloride 10 MEQ ONCE ONE 06/04 1330 DC 06/04 IV 06/04 Potassium Chloride 10 MEQ ONCE ONE 06/04 1230 DC 06/04 IV 06/04 1231 1340 Senna/Docusate Sodium 2 TAB DAILY PRN 05/26 1330 AC PO Last 24 Hrs of Lab/Bert Results Last 24 Hrs of Labs/Mics: Laboratory Tests 06/05/16 0640: Anion Gap 6, Estimated GFR > 60, BUN/Creatinine Ratio 24.0, Calcium 6.6 L, Phosphorus 1.4 L, Magnesium 1.7, CBC w Diff NO MAN DIFF REQ, RBC 3.46 L, MCV 92.3, MCH 31.6 H, RDW 13.9, MPV 8.1, Gran % 83.7 H, Lymphocytes % 7.5 L, Monocytes % 8.5, Eosinophils % 0.1, Basophils % 0.2, Absolute Granulocytes 9.6 H, Absolute Lymphocytes 0.9 L, Absolute Monocytes 1.0 H, Absolute Eosinophils 0, Absolute Basophils 0, PUBS MCHC 34.2 Assessment/Plan Assessment: 85-year-old gentleman with PMH of BPH s/p TURP 2 current admission for generalized weakness for 4 weeks s/p bone biopsy and marrow aspirate Assessment and plan: # Aspiration pneumonitis tmx 99.4, wbc trending down 11.4 -The patient is status post PEG tube and currently on Jevity 1.2 feeds, tolerating it well - on IV Unasyn -No issues of fever and if the patient remained stable. We'll switch him to by mouth Augmentin tomorrow 2. Suspicion for multiple myeloma : * Heme on board appreciate recommendations Flow cytometry pending * beta-2 microglobulin, and serum immunoglobulin l * Called lab regarding Serum immunofixation, beta-2 microglobulin, and serum immunoglobulin level (IgA, IgG, IgM). some of the tests were not sent as they need approval from pathologist. # Hypocalcemia/hypokalemia/hypomagnesmia/hypophos repleted accordingly Diet: NPO.tube feeds DVT prophylaxis: subcutaneous heparin and alps FULL CODE called and informed son at [phone] Problem List: 1. S/P percutaneous endoscopic gastrostomy (PEG) tube placement 2. Multiple myeloma 3. Failure to thrive Pain Ratin Pain Location: abd Pain Goal: Pain 4 or less Pain Plan: current regimen Tomorrow's Labs & Rationales: cbc/bep
[2016-06-05 09:32] LABS: WHITE BLOOD CELL COUNT 11.4 /CUMM (4.8-10.8)
[2016-06-05 17:20] VITALS: BP 116/46
[2016-06-05 23:26] VITALS: BP 118/59
--- NOTE | 2016-06-06 07:39 | PN- Hematology ---
Subjective Subjective: He has had PEG tube placed. He is tolerating tube feeding. He has no new symptoms besides pain at the insertion site. Review of Systems: Constitutional: Denies: chills, fever. Cardiovascular: Denies: chest pain. Gastrointestinal: Reports abdominal pain. Neurological/Psychological: Reports: confusion. All Other Systems: Reviewed and Negative Objective Vital Signs and I&Os Vital Signs Date Time Temp Pulse Resp B/P Pulse O2 O2 Flow FiO2 Ox Delivery Rate 06/05 2326 98.1 89 18 118/59 97 Room Air 06/05 1943 98.6 06/05 1919 94 Room Air 06/05 1720 101.0 93 18 116/46 94 Room Air 06/05 1625 100.8 06/05 1105 94 Room Air Room Air 06/05 0810 99.4 88 18 118/60 94 Room Air Intake & Output 06/06 0800 06/06 0000 06/05 1600 06/05 0800 06/05 0000 06/04 1600 Intake Total 1157 1000 1141 1141 984 955 Output Total 500 500 650 650 300 Balance 657 1000 641 491 334 655 Intake, IV 616 800 600 600 700 500 Intake, Oral 0 0 Intake, Tube 416 200 416 416 284 205 Feeding Intake, Tube 125 125 125 250 Irrigant Number 1 Bowel Movements Output, Urine 500 500 650 650 300 Physical Exam: General Appearance: alert, awake, cachetic, oriented to self, location, month, but not year Head: atraumatic Ears, Nose, Throat: dry mucosa Respiratory: chest non-tender, no respiratory distress, crackles Cardiovascular: regular rate/rhythm Abdomen: normal bowel sounds, soft, tender to palpation in PEG insertion site, no organomegaly Extremities: pedal edema. Bilateral feet tender to palpation (below ankle). More on left. No erythema. Neurologic/Psychiatric: awake, alert, oriented to self, location, but not month or year Skin: normal color Current Medications: Current Medications Sig/Dominique Start time Last Medication Dose Route Stop Time Status Admin Acetaminophen 650 MG .STK-MED ONE 06/05 1620 DC PO 06/05 162 Acetaminophen 650 MG Q6P PRN 05/24 2345 AC 06/05 PO 1625 Albuterol Sulfate 3 ML Q4P PRN 05/25 2200 AC 05/29 INH 1919 Ampicillin Sodium/ 1,500 MG Q6 06/02 1200 AC 06/06 Sulbactam Sodium IV 0512 Sodium Chloride 100 ML Bisacodyl 10 MG DAILY PRN 06/03 1125 AC 06/04 CA 1059 Dextrose/Sodium 1,000 ML Q13H 05/30 1445 AC 06/05 Chloride IV 1947 Famotidine 20 MG DAILY 06/03 1122 AC 06/05 PO 0932 Heparin Sodium 5,000 UNIT Q8 05/25 0600 AC 06/06 (Porcine) SC 0512 Lactobacillus 1 CAP BID 05/28 1027 AC 06/05 Acidophilus PO 2203 Patient Medication 1 ED .STK-MED ONE 06/05 1334 DC Teaching ED 06/05 1335 Phosphate 250 MG PC AND AT BEDTIME 06/05 1800 AC 06/05 PO 2203 Polyethylene Glycol 17 GM DAILY PRN 05/26 1330 AC PO Senna/Docusate Sodium 2 TAB DAILY PRN 05/26 1330 AC PO Results Last 24 Hours of Lab Results: Laboratory Tests 06/06 0638 Hematology CBC w Diff Pending WBC Pending RBC Pending Hgb Pending Hct Pending MCV Pending MCH Pending RDW Pending Plt Count Pending MPV Pending PUBS MCHC Pending Assessment/Plan Assessment/Recommendations: Mr. Nice is an 85-year-old with history of BPH s/p TURB who presents with significant weakness, weight loss, and decondition. He is cachetic on examination. He has still able to drive up until last week. On admission, he was noted to have hypercalcemia (13.9) and protein gap (total protein at 11.2, albumin at 3.9). His creatinine and hemoglobin are normal. CT imaging noted lytic bone lesions. Bone marrow was done by IR and pathology is pending. Flow cytometry demonstrated plasma cell dyscrasia. Work up so far has revealed multiple myeloma. Immunofixation, beta-2 microglobulin, and immunoglobulin are pending. Due to his age and frail condition, aggressive options are limited. Pending his improvement, melphalan with prednisone can be a good option for the patient. He has PEG in place and receiving tube feeding. Blood work demonstrates refeeding syndrome. His electrolytes are being repleted. Recommendations: 1. Follow up on serum immunofixation, beta-2 microglobulin, and serum immunoglobulin level (IgA, IgG, IgM) being sent 2. Follow up bone marrow results 3. Follow up as outpatient to discuss therapy likely melphalan/prednisone 4. PT evaluation 5. Monitor refeeding syndrome Please call [phone] with any questions or concerns. Problem List: 1. Multiple myeloma 2. Lytic bone lesions on xray 3. Multiple falls 4. Failure to thrive 5. Weakness 5. Weakness
[2016-06-06 08:16] VITALS: BP 120/58
[2016-06-06 08:17] LABS: ABSOLUTE BASOPHIL COUNT 0 /CUMM (0.0-0.2); ABSOLUTE EOSINOPHIL COUNT 0 /CUMM (0.0-0.7); ABSOLUTE GRANULOCYTE CT 8.4 /CUMM (1.4-6.5); ABSOLUTE LYMPH COUNT 0.9 /CUMM (1.2-3.4); ABSOLUTE MONOCYTE COUNT 1.1 /CUMM (0.10-0.60); BASOPHIL % 0.2 % (0.0-2.0); EOSINOPHIL % 0.4 % (0-5); GRANULOCYTE % 80.3 % (42.2-75.2); HEMATOCRIT 30.4 % (42-52); MEAN CORPUSCULAR HGB 31.7 PG (27.0-31.0); MEAN CORPUSCULAR HGB CONC 34.5 G/DL (33.0-37.0); MEAN CORPUSCULAR VOLUME 91.9 FL (80.0-94.0); MEAN PLATELET VOLUME 7.6 FL (7.4-10.4); PLATELET COUNT 442 /CUMM (130-400); RED BLOOD CELL CT 3.31 /CUMM (4.70-6.10); WHITE BLOOD CELL COUNT 10.4 /CUMM (4.8-10.8)
--- NOTE | 2016-06-06 11:26 | PN- Housestaff ---
RAUL SPAIN 06/06/16 1126: Subjective Follow-up For: Multiple myeloma, deconditioning, failure to thrive Subjective: Seen and examined patient, offers no complaints. On interview denies fevers, chills, abdominal pain pain. Continues to have some amount of cough. Review of Systems Constitutional: Denies: chills, diaphoresis, fever, malaise, weakness, unexplained weight loss. Cardiovascular: Denies: chest pain, edema, orthopena, palpitations, peripheral edema, syncope. Objective Last 24 Hrs of Vital Signs/I&O Vital Signs Date Time Temp Pulse Resp B/P Pulse O2 O2 Flow FiO2 Ox Delivery Rate 06/06 1601 99.0 88 21 120/60 94 06/06 0854 93 Room Air 06/06 0816 98.8 96 18 120/58 95 Room Air 06/05 2326 98.1 89 18 118/59 97 Room Air 06/05 1943 98.6 06/05 1919 94 Room Air 06/05 1720 101.0 93 18 116/46 94 Room Air Intake & Output 06/06 1600 06/06 0800 06/06 0000 Intake Total 1157 1000 Output Total 550 500 Balance -982 973 9878 Intake, IV 616 800 Intake, Oral 0 Intake, Tube 416 200 Feeding Intake, Tube 125 Irrigant Number 1 Bowel Movements Output, Urine 550 500 Physical Exam General Appearance: Alert, Oriented X3, No Acute Distress Cardiovascular: Normal S1, Normal S2 Lungs: decreased breath sounds on left side Abdomen: Normal Bowel Sounds, Soft, No Tenderness, PEG tube in place Extremities: No Edema Current Medications: Current Medications Sig/Dominique Start time Last Medication Dose Route Stop Time Status Admin Acetaminophen 650 MG .STK-MED ONE 06/06 0839 DC PO 06/06 0840 Acetaminophen 650 MG Q6P PRN 05/24 2345 AC 06/06 PO 0845 Albuterol Sulfate 3 ML Q4P PRN 05/25 2200 AC 05/29 INH 1919 Ampicillin Sodium/ 1,500 MG Q6 06/02 1200 AC 06/06 Sulbactam Sodium IV 1242 Sodium Chloride 100 ML Bisacodyl 10 MG DAILY PRN 06/03 1125 AC 06/04 [place] 1059 Dextrose/Sodium 1,000 ML Q13H 05/30 1445 AC 06/06 Chloride IV 1514 Famotidine 20 MG DAILY 06/03 1122 AC 06/06 PO 0845 Heparin Sodium 5,000 UNIT Q8 05/25 0600 AC 06/06 (Porcine) SC 1243 Lactobacillus 1 CAP BID 05/28 1027 AC 06/06 Acidophilus PO 0845 Phosphate 250 MG PC AND AT BEDTIME 06/05 1800 AC 06/06 PO 1242 Polyethylene Glycol 17 GM DAILY PRN 05/26 1330 AC PO Senna/Docusate Sodium 2 TAB DAILY PRN 05/26 1330 AC PO Last 24 Hrs of Lab/Bert Results Last 24 Hrs of Labs/Mics: Laboratory Tests 06/06/16 1145: Urinalysis LIGHT H, Urine Color YEL, Urine Clarity HAZY H, Urine pH 6.0, Ur Specific [place] 1.015, Urine Protein NEG, Urine Ketones NEG, Urine Nitrite NEG, Urine Bilirubin NEG, Urine Urobilinogen 0.2, Ur Leukocyte Esterase SMALL H, Ur Microscopic SEDIMENT EXAMINED, Urine RBC 50-75 H, Urine WBC 10-15 H, Ur Epithelial Cells RARE, Granular Casts 1-3 H, Urine Mucus FEW, Urine Hemoglobin LARGE H, Urine Glucose NEG 06/06/16 0638: Anion Gap 5, Estimated GFR > 60, BUN/Creatinine Ratio 22.0, Phosphorus 1.9 L, Magnesium 1.5 L, CBC w Diff NO MAN DIFF REQ, RBC 3.31 L, MCV 91.9, MCH 31.7 H , RDW 14.0, MPV 7.6, Gran % 80.3 H, Lymphocytes % 8.7 L, Monocytes % 10.4 H, Eosinophils % 0.4, Basophils % 0.2, Absolute Granulocytes 8.4 H, Absolute Lymphocytes 0.9 L, Absolute Monocytes 1.1 H, Absolute Eosinophils 0, Absolute Basophils 0, PUBS MCHC 34.5 Microbiology 06/06 1138 BLOOD: Blood Culture - RECD 06/06 113 BLOOD: Blood Culture - RECD Assessment/Plan Assessment: 85-year-old gentleman with PMH of BPH s/p TURP 2 current admission for generalized weakness for 4 weeks s/p bone biopsy and marrow aspirate Assessment and plan: # Aspiration pneumonitis tmx 101.0 overnight, wbc trending down to 10.4 -The patient is status post PEG tube and currently on Jevity 1.2 feeds at goal rate, tolerating it well - Currently on IV Unasyn Final Blood cultures from May 24 show no growth, will repeat blood cultures , urine analysis and urine culture. -We'll obtain chest x-ray 2. Suspicion for multiple myeloma : -Heme on board appreciate recommendations -serum immunofixation, beta-2 microglobulin, and serum immunoglobulin level (IgA , IgG, IgM) pending -Bone marrow biopsy results pending # Hypocalcemia/hypokalemia/hypomagnesmia/hypophos repleted accordingly Diet: NPO.tube feeds DVT prophylaxis: subcutaneous heparin and alps FULL CODE Updated son ([phone]) Problem List: 1. S/P percutaneous endoscopic gastrostomy (PEG) tube placement 2. Multiple myeloma Pain Ratin Pain Location: Not applicable Pain Goal: Pain 4 or less Pain Plan: Current regimen Tomorrow's Labs & Rationales: CBC, BEP, magnesium, phosphorus RENAY GUTIERREZ,JUAN 06/06/16 1300: Attending MD Review Statement Attending Statement Attending MD Statement: examined this patient, discuss w/resident/PA/TIMBER WATCHMAN, agreed w/resident/PA/TIMBER WATCHMAN, reviewed EMR data (avail) Attending Assessment/Plan: Patient seen and examined. Plan of care discussed with the medical team and the patient. Available lab work and radiology test reports were reviewed. Patient is found to be sitting in chair. He appears lethargic and slightly confused. He wants to eat. His MAXIMUM TEMPERATURE is 101 and this morning temperature is 98.8. Rest of while signs are stable. His room air saturation is 93% . Chest exam shows overall decreased air entry with a few crackles. Abdomen is slightly tender around the PEG tube area. WBC count is 10.4 and hematocrit is 30.4. Sodium is 135 and other blood clots are within normal limits. Chest x-ray today shows decreased lung volumes and a small persistent left pleural effusion and left lower lobe opacity likely atelectasis. Assessment and plan * Currently awaiting workup for myeloma including his bone biopsy report * Plans for short-term rehabilitation when patient is ready for discharge. Await bed search. * Continue to feeding * Minimize daily blood work * Start incentive spirometry * Panculture for recurrent fever and obtain a UA; if there is no sign of infection then we'll consider switching his Unasyn to a [id number] antibiotic due to concern for beta-lactam induced fever.
--- NOTE | 2016-06-06 11:54 | RADIOLOGY REPORT ---
EXAMINATION: XR CHEST CLINICAL INFORMATION: Aspiration pneumonia. COMPARISON: 06/02/2016 TECHNIQUE: Portable view of the chest was obtained. FINDINGS: Since the previous exam, the lungs are less well expanded. There appears to be increasing density at the left base consistent with infiltrate/atelectasis and pleural effusion. Some atelectasis or scarring is present at the right lung base. No evidence of a right-sided pleural effusion. No gross CHF is present and the heart size is normal. IMPRESSION: Decreased lung volumes since the film of 4 days ago with continued small left effusion and left lower lobe opacity.
[2016-06-06 16:01] VITALS: BP 120/60
[2016-06-07 00:13] VITALS: BP 119/63
--- NOTE | 2016-06-07 08:03 | Patient Discharge Instructions ---
Discharge Instructions General Discharge Information You were seen/treated for: Multiple Myeloma Hypercalcemia Special Instructions: Please make an appointment to see the doctors in the referral section. Diet Recommended Diet: PEG tube feeding. Activity Activity Self Limited: Yes Acute Coronary Syndrome Inclusion Criteria At DC or during hospital stay patient has or had the following: ACS DIAGNOSIS No Discharge Core Measures Meds if any: Prescribed or Continued at Discharge Meds if any: NOT Prescribed or Continued at Discharge Congestive Heart Failure Inclusion Criteria At DC or during hospital stay patient has or had the following: CHF DIAGNOSIS No Discharge Core Measures Meds if any: Prescribed or Continued at Discharge Meds if any: NOT Prescribed or Continued at Discharge Cerebrovascular accident Inclusion Criteria At DC or during hospital stay patient has or had the following: CVA/TIA Diagnosis No Discharge Core Measures Meds if any: Prescribed or Continued at Discharge Meds if any: NOT Prescribed or Continued at Discharge Venous thromboembolism Inclusion Criteria VTE Diagnosis No VTE Type NONE VTE Confirmed by (Test) NONE Discharge Core Measures - Per Current guidelines, there needs to be overlap - treatment for the first 5 days of Warfarin therapy. - If discharged on Warfarin prior to 5 days of - overlap therapy, the patient will need to be - assessed for post discharge needs including - *Post discharge parental anticoagulation - *Warfarin and/or parental anticoagulation education - *Follow up date to check INR post discharge At least 5 days overlap therapy as Inpatient No Meds if any: Prescribed or Continued at Discharge Note: Overlap Therapy is Warfarin and Anticoagulant Meds if any: NOT Prescribed or Continued at Discharge
[2016-06-07] MEDS ORDERED: JEVITY 1.2 CAL237 M1 PEG (08:05)
[2016-06-07] MEDS ORDERED: UNASYN 1.5 GM1.5 GM IV (08:10)
[2016-06-07 08:11] LABS: ABSOLUTE BASOPHIL COUNT 0 /CUMM (0.0-0.2); ABSOLUTE EOSINOPHIL COUNT 0.1 /CUMM (0.0-0.7); ABSOLUTE GRANULOCYTE CT 9.8 /CUMM (1.4-6.5); ABSOLUTE LYMPH COUNT 1.1 /CUMM (1.2-3.4); ABSOLUTE MONOCYTE COUNT 1.3 /CUMM (0.10-0.60); BASOPHIL % 0.3 % (0.0-2.0); EOSINOPHIL % 0.5 % (0-5); GRANULOCYTE % 79.4 % (42.2-75.2); HEMATOCRIT 30.6 % (42-52); MEAN CORPUSCULAR HGB 31.5 PG (27.0-31.0); MEAN CORPUSCULAR VOLUME 92.8 FL (80.0-94.0); MEAN PLATELET VOLUME 7.6 FL (7.4-10.4); PLATELET COUNT 475 /CUMM (130-400); RBC DISTRIBUTION WIDTH 14.3 % (11.5-14.5); WHITE BLOOD CELL COUNT 12.3 /CUMM (4.8-10.8)
[2016-06-07 08:12] VITALS: BP 120/60
[2016-06-07] MEDS ORDERED: MIRALAX119 GM PO (09:32)
[2016-06-07] MEDS ORDERED: SENNA PLUS TAB1 EACH PO (09:32)
--- NOTE | 2016-06-07 10:13 | PN- Hematology ---
Subjective Subjective: He reports pain in the abdomen. He has pain in the lower extremity. He denies any fever or chills. Review of Systems: Constitutional: Denies: chills, fever. Cardiovascular: Denies: chest pain. Gastrointestinal: Reports abdominal pain. Neurological/Psychological: Reports: confusion. All Other Systems: Reviewed and Negative Objective Vital Signs and I&Os Vital Signs Date Time Temp Pulse Resp B/P Pulse O2 O2 Flow FiO2 Ox Delivery Rate 06/07 0812 98.8 94 20 120/60 92 Room Air 06/07 0013 98.0 90 20 119/63 95 06/06 1925 94 Room Air 06/06 1741 Room Air Room Air 06/06 1601 99.0 88 21 120/60 94 Intake & Output 06/07 1600 06/07 0800 06/07 0000 06/06 1600 06/06 0800 06/06 0000 Intake Total 3828 938 9053 1157 1000 Output Total 1250 1300 1500 500 Balance -21 -467 -195 882 7347 Intake, IV 1000 300 616 800 Intake, Oral 0 0 650 0 Intake, 364 TPN/PPN Intake, Tube 104 208 416 200 Feeding Intake, Tube 125 325 125 Irrigant Number 1 Bowel Movements Output, Urine 1250 1300 1500 500 Physical Exam: General Appearance: alert, awake, cachetic, oriented to self, location, month, but not year Head: atraumatic Ears, Nose, Throat: dry mucosa Respiratory: chest non-tender, no respiratory distress, crackles Cardiovascular: regular rate/rhythm Abdomen: normal bowel sounds, soft, tender to palpation in PEG insertion site, no organomegaly Extremities: pedal edema. Bilateral feet tender to palpation (below ankle). More on left. No erythema. 1+ edema in lower extremity. Bilateral knee tenderness. Neurologic/Psychiatric: awake, alert, oriented to self, location, but not month or year Skin: normal color Current Medications: Current Medications Sig/Dominique Start time Last Medication Dose Route Stop Time Status Admin Acetaminophen 650 MG Q6P PRN 05/24 2345 AC 06/06 PO 0845 Albuterol Sulfate 3 ML Q4P PRN 05/25 2200 AC 05/29 INH 1919 Ampicillin Sodium/ 1,500 MG Q6 06/02 1200 AC 06/07 Sulbactam Sodium IV 0702 Sodium Chloride 100 ML Bisacodyl 10 MG DAILY PRN 06/03 1125 AC 06/04 [place] 1059 Dextrose/Sodium 1,000 ML Q13H 05/30 1445 AC 06/06 Chloride IV 1514 Famotidine 20 MG DAILY 06/03 1122 AC 06/07 PO 0807 Heparin Sodium 5,000 UNIT Q8 05/25 0600 AC 06/06 (Porcine) SC 1243 Lactobacillus 1 CAP BID 05/28 1027 AC 06/07 Acidophilus PO 0807 Phosphate 250 MG PC AND AT BEDTIME 06/05 1800 AC 06/07 PO 0807 Polyethylene Glycol 17 GM DAILY PRN 05/26 1330 AC PO Senna/Docusate Sodium 2 TAB DAILY PRN 05/26 1330 AC PO Zinc Oxide 1 KARLEE BID 06/07 0830 AC TOP Results Last 24 Hours of Lab Results: Laboratory Tests 06/07 06/06 0645 1145 Chemistry Sodium (137 - 145 mmol/L) 133 L Potassium (3.5 - 5.1 mmol/L) 4.4 Chloride (98 - 107 mmol/L) 98 Carbon Dioxide (22 - 30 mmol/L) 28 Anion Gap (5 - 16) 7 BUN (9 - 20 mg/dL) 11 Creatinine (0.7 - 1.2 mg/dL) 0.5 L Estimated GFR (>60 ml/min) > 60 BUN/Creatinine Ratio (7 - 25 %) 22.0 Phosphorus (2.5 - 4.5 mg/dL) 2.5 Magnesium (1.6 - 2.3 mg/dL) 1.5 L Hematology CBC w Diff NO MAN DIFF REQ WBC (4.8 - 10.8 /CUMM) 12.3 H RBC (4.70 - 6.10 /CUMM) 3.30 L Hgb (14.0 - 18.0 G/DL) 10.4 L Hct (42 - 52 %) 30.6 L MCV (80.0 - 94.0 FL) 92.8 MCH (27.0 - 31.0 PG) 31.5 H RDW (11.5 - 14.5 %) 14.3 Plt Count (130 - 400 /CUMM) 475 H MPV (7.4 - 10.4 FL) 7.6 Gran % (42.2 - 75.2 %) 79.4 H Lymphocytes % (20.5 - 51.1 %) 9.3 L Monocytes % (1.7 - 9.3 %) 10.5 H Eosinophils % (0 - 5 %) 0.5 Basophils % (0.0 - 2.0 %) 0.3 Absolute Granulocytes (1.4 - 6.5 /CUMM) 9.8 H Absolute Lymphocytes (1.2 - 3.4 /CUMM) 1.1 L Absolute Monocytes (0.10 - 0.60 /CUMM) 1.3 H Absolute Eosinophils (0.0 - 0.7 /CUMM) 0.1 Absolute Basophils (0.0 - 0.2 /CUMM) 0 PUBS MCHC (33.0 - 37.0 G/DL) 34.0 Urines Urinalysis LIGHT H Urine Color (YEL,AMB,STR) YEL Urine Clarity (CLEAR) HAZY H Urine pH (5.0 - 8.0) 6.0 Ur Specific [place] (1.001 - 1.035) 1.015 Urine Protein (NEG,<30 MG/DL) NEG Urine Ketones (NEG) NEG Urine Nitrite (NEG) NEG Urine Bilirubin (NEG) NEG Urine Urobilinogen (0.1 - 1.0 EU/dl) 0.2 Ur Leukocyte Esterase (NEG) SMALL H Ur Microscopic SEDIMENT EXAMINED Urine RBC (0 - 5 /HPF) 50-75 H Urine WBC (0 - 2 /HPF) 10-15 H Ur Epithelial Cells (NONE,FEW) RARE Granular Casts (NONE /LPF) 1-3 H Urine Mucus (FEW,NONE) FEW Urine Hemoglobin (NEG) LARGE H Urine Glucose (N MG/DL) NEG Assessment/Plan Assessment/Recommendations: Mr. Nice is an 85-year-old with history of BPH s/p TURB who presents with significant weakness, weight loss, and decondition. He is cachetic on examination. He has still able to drive up until last week. On admission, he was noted to have hypercalcemia (13.9) and protein gap (total protein at 11.2, albumin at 3.9). His creatinine and hemoglobin are normal. CT imaging noted lytic bone lesions. Bone marrow was done by IR and pathology is pending. Flow cytometry demonstrated plasma cell dyscrasia. Work up so far has revealed multiple myeloma. [id number] elevated at 5.47. IgG elevate at 3026. Immunofixation positive for IgG kappa. He is at ISS stage III. PEG is in place and tolerating tube feeding. 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 With regard to his MM, his age and frail condition make aggressive options limited. Pending his improvement, melphalan with prednisone can be a good option for the patient. Recommendations: 1. Follow up bone marrow results 2. Follow up as outpatient to discuss therapy likely melphalan/prednisone 3. Monitor refeeding syndrome with aggressive repletion 4. PT and likely STR 5. Consider x-ray of the feet for persistent pain Please call [phone] with any questions or concerns. Problem List: 1. Multiple myeloma 2. Hypercalcemia 3. Failure to thrive 4. Hypocalcemia and hypomagnesemia of 5. Hypocalcemia
--- NOTE | 2016-06-07 11:46 | PN- Housestaff ---
RAUL SPAIN 06/07/16 1146: Subjective Follow-up For: Multiple myeloma, deconditioning, failure to thrive Subjective: Seen and examined patient, offers no complaints Review of Systems Constitutional: Denies: chills, diaphoresis, fever, malaise, weakness, unexplained weight loss. Cardiovascular: Denies: chest pain, edema, orthopena, palpitations, peripheral edema, syncope. Respiratory: Denies: cough, hemoptysis, orthopnea, short of breath, sputum production, stridor, wheezing. Objective Last 24 Hrs of Vital Signs/I&O Vital Signs Date Time Temp Pulse Resp B/P Pulse O2 O2 Flow FiO2 Ox Delivery Rate 06/07 1518 98.2 100 20 120/60 93 Room Air 06/07 0922 93 Room Air Room Air 06/07 0812 98.8 94 20 120/ 92 Room Air 06/07 0013 98.0 90 20 119/63 95 06/06 1925 94 Room Air 06/06 1741 Room Air Room Air 06/06 1601 99.0 88 21 120/60 94 Intake & Output 06/07 1600 06/07 0800 06/07 0000 Intake Total 1229 833 Output Total 400 1250 1300 Balance -400 -21 -467 Intake, IV 1000 300 Intake, Oral 0 0 Intake, Tube 104 208 Feeding Intake, Tube 125 325 Irrigant Output, Urine 400 1250 1300 Physical Exam General Appearance: Alert, No Acute Distress Cardiovascular: Regular Rate, Normal S1, Normal S2 Lungs: bilateral rhonchi Abdomen: Normal Bowel Sounds, Soft, No Tenderness Extremities: No Edema Current Medications: Current Medications Sig/Dominique Start time Last Medication Dose Route Stop Time Status Admin Acetaminophen 650 MG Q6P PRN 05/24 2345 AC 06/06 PO 0845 Albuterol Sulfate 3 ML Q4P PRN 05/25 2200 AC 05/29 INH 1919 Ampicillin Sodium/ 1,500 MG Q6 06/02 1200 AC 06/07 Sulbactam Sodium IV 1318 Sodium Chloride 100 ML Bisacodyl 10 MG DAILY PRN 06/03 1125 AC 06/04 ID 1059 Dextrose/Sodium 1,000 ML Q13H 05/30 1445 AC 06/06 Chloride IV 1514 Famotidine 20 MG DAILY 06/03 1122 AC 06/07 PO 0807 Heparin Sodium 5,000 UNIT Q8 05/25 0600 AC 06/07 (Porcine) SC 1318 Lactobacillus 1 CAP BID 05/28 1027 AC 06/07 Acidophilus PO 0807 Phosphate 250 MG PC AND AT BEDTIME 06/05 1800 AC 06/07 PO 1318 Polyethylene Glycol 17 GM DAILY PRN 05/26 1330 AC PO Senna/Docusate Sodium 2 TAB DAILY PRN 05/26 1330 AC PO Zinc Oxide 1 KARLEE BID 06/07 0830 AC 06/07 TOP 1024 Last 24 Hrs of Lab/Bert Results Last 24 Hrs of Labs/Mics: Laboratory Tests 06/07/16 0645: Anion Gap 7, Estimated GFR > 60, BUN/Creatinine Ratio 22.0, Phosphorus 2.5, Magnesium 1.5 L, CBC w Diff NO MAN DIFF REQ, RBC 3.30 L, MCV 92.8, MCH 31.5 H , RDW 14.3, MPV 7.6, Gran % 79.4 H, Lymphocytes % 9.3 L, Monocytes % 10.5 H, Eosinophils % 0.5, Basophils % 0.3, Absolute Granulocytes 9.8 H, Absolute Lymphocytes 1.1 L, Absolute Monocytes 1.3 H, Absolute Eosinophils 0.1, Absolute Basophils 0, PUBS MCHC 34.0 Assessment/Plan Assessment: 85-year-old gentleman with PMH of BPH s/p TURP 2 current admission for generalized weakness for 4 weeks s/p bone biopsy and marrow aspirate Assessment and plan: # Aspiration pneumonitis afebrile overnight, wbc trending down to 12.4 on Jevity 1.2 feeds at goal rate, tolerating it well Final Blood cultures from May 24 show no growth, prelim blood cultures from the show no growth, next x-ray shows decreased lung volumes more likely to be atelectasis, will discontinue Unasyn and follow off antibiotics for now. Given spirometry at bedside 2. Suspicion for multiple myeloma : -Heme on board appreciate recommendations -serum immunofixation, beta-2 microglobulin, and serum immunoglobulin level (IgA , IgG, IgM) pending -Bone marrow biopsy results pending # Hypocalcemia/hypokalemia/hypomagnesmia/hypophos repleted accordingly Diet: NPO.tube feeds DVT prophylaxis: subcutaneous heparin and alps FULL CODE Updated son today ([phone]) Problem List: 1. Multiple falls 2. Lytic bone lesions on xray 3. Failure to thrive 4. Multiple myeloma 5. S/P percutaneous endoscopic gastrostomy (PEG) tube placement Pain Ratin Pain Location: na Pain Goal: Pain 4 or less Pain Plan: current regimen Tomorrow's Labs & Rationales: bep/phos on tube feeds RENAY GUTIERREZ,JUAN 06/07/16 1344: Attending MD Review Statement Attending Statement Attending Assessment/Plan: Attending MD Statement: examined this patient, discuss w/resident/PA/BUSINESS LEADER, agreed w/resident/PA/BUSINESS LEADER, reviewed EMR data (avail) Attending Assessment/Plan: Patient seen and examined. Plan of care discussed with the medical team and the patient. Available lab work and radiology test reports were reviewed. Patient is found to be lying in bed comfortably and does not appear to be in distress. He appears lethargic and slightly confused. He denies any new complaints. His MAXIMUM TEMPERATURE is 99 and this morning temperature is 98.8. Rest of while signs are stable. His room air saturation is 93% . Chest exam shows overall decreased air entry with a few crackles. Abdomen is slightly tender around the PEG tube area. WBC count is 12.3 and hematocrit is 30.6. Sodium is 133 and other electrolytes are within normal limits. Chest x-ray done on 06/06 shows decreased lung volumes and a small persistent left pleural effusion and left lower lobe opacity likely atelectasis. His urinalysis done yesterday appears to be traumatic. Blood cultures so far are negative. Assessment * Aspiration pneumonia * Suspected multiple myeloma * Dysphagia status post PEG tube * Malnutrition * Recurrent fever without any clear source Plan * Currently awaiting workup for myeloma including his bone biopsy report * Plans for short-term rehabilitation when patient is ready for discharge. Await bed search. * Continue to feeding * Minimize daily blood work * incentive spirometry * Discontinue antibiotic and watch off antibiotics * DC sitter
[2016-06-07 15:18] VITALS: BP 120/60
--- NOTE | 2016-06-07 21:36 | RADIOLOGY REPORT ---
EXAMINATION: XR FOOT, RIGHT CLINICAL INFORMATION: Multiple myeloma. Pain. COMPARISON: Bone survey 05/25/2016 TECHNIQUE: AP, lateral, and oblique views of the right foot FINDINGS: No focal bone lesion or destruction. No fracture. No periosteal reaction. There is joint narrowing of the first MTP joint with small marginal spur of bone. IMPRESSION: No acute abnormality. No focal bone lesion.
--- NOTE | 2016-06-07 21:41 | RADIOLOGY REPORT ---
EXAMINATION: XR FOOT, LEFT CLINICAL INFORMATION: Multiple myeloma. Pain. COMPARISON: None. TECHNIQUE: 2 views of foot. FINDINGS: No fracture. No focal bone lesion or periosteal reaction. There is joint narrowing of the first MPT joint with small marginal spurs of the metatarsal head. IMPRESSION: No acute abnormality. No suspicious focal bone lesion.
--- NOTE | 2016-06-07 23:54 | NUR ---
ALERT AND ORIENTED TO PERSON AND PLACE. VITAL SIGNS STABLE. ON ROOM AIR. TUBE FEED RUNNING. PEG TUBE DRESSING IS CLEAN, DRY, AND INTACT
[2016-06-08 00:01] VITALS: BP 110/58
[2016-06-08 08:03] VITALS: BP 120/60
--- NOTE | 2016-06-08 08:22 | PN- Housestaff ---
RAUL SPAIN 06/08/16 0821: Subjective Follow-up For: Multiple myeloma, deconditioning, failure to thrive Subjective: seen and examined patient, complains of b/l feet L>R. not complaining about cough, shortness of breath, chest pain, abdominal pain or difficulty breathing. Patient noted to have cough. Review of Systems Constitutional: Denies: chills, diaphoresis, fever, malaise, weakness, unexplained weight loss. Cardiovascular: Denies: chest pain, edema, orthopena, palpitations, peripheral edema, syncope. Respiratory: Denies: cough, hemoptysis, orthopnea, short of breath, sputum production, stridor, wheezing. Gastrointestinal: Denies: abdominal pain. Objective Last 24 Hrs of Vital Signs/I&O Vital Signs Date Time Temp Pulse Resp B/P Pulse O2 O2 Flow FiO2 Ox Delivery Rate 06/08 0803 97.4 98 20 120/60 96 Room Air 06/08 0001 97.4 91 20 110/58 95 Room Air 06/08 0000 Room Air 06/07 1724 94 Room Air Room Air 06/07 1518 98.2 100 20 120/60 93 Room Air 06/07 0922 93 Room Air Room Air Intake & Output 06/08 1600 06/08 0800 06/08 0000 Intake Total 1141 630 Output Total 900 1100 Balance 241 -470 Intake, IV 600 Intake, Oral 0 Intake, Tube 416 630 Feeding Intake, Tube 125 Irrigant Output, Urine 900 1100 Physical Exam General Appearance: Alert, Cooperative, No Acute Distress Cardiovascular: Regular Rate, Normal S1, Normal S2 Lungs: bilateral rhonchi Abdomen: Normal Bowel Sounds, Soft, No Tenderness, PEG tube in place Extremities: mild erythema and swelling over right ankle painful to touch Current Medications: Current Medications Sig/Dominique Start time Last Medication Dose Route Stop Time Status Admin Acetaminophen 650 MG Q6P PRN 05/24 2345 AC 06/06 PO 0845 Albuterol Sulfate 3 ML Q4P PRN 05/25 2200 AC 05/29 INH 1919 Ampicillin Sodium/ 1,500 MG Q6 06/02 1200 DC 06/07 Sulbactam Sodium IV 1318 Sodium Chloride 100 ML Bisacodyl 10 MG DAILY PRN 06/03 1125 AC 06/04 [place] 1059 Dextrose/Sodium 1,000 ML Q13H 05/30 1445 AC 06/07 Chloride IV 1601 Famotidine 20 MG DAILY 06/03 1122 AC 06/07 PO 0807 Heparin Sodium 5,000 UNIT Q8 05/25 0600 AC 06/08 (Porcine) SC 0619 Lactobacillus 1 CAP BID 05/28 1027 AC 06/07 Acidophilus PO 2215 Magnesium Sulfate 1 GM Q2H 06/07 1600 DC 06/07 Dextrose/Water 100 ML IV 06/07 1959 2215 Phosphate 250 MG PC AND AT BEDTIME 06/05 1800 AC 06/07 PO 2215 Polyethylene Glycol 17 GM DAILY PRN 05/26 1330 AC PO Senna/Docusate Sodium 2 TAB DAILY PRN 05/26 1330 AC PO Zinc Oxide 1 KARLEE BID 06/07 0830 AC 06/07 TOP 2216 Last 24 Hrs of Lab/Bert Results Last 24 Hrs of Labs/Mics: Laboratory Tests 06/08/16 0700: Anion Gap 9, Estimated GFR > 60, BUN/Creatinine Ratio 24.0, Phosphorus 3.0, Magnesium 1.9 Assessment/Plan Assessment: 85-year-old gentleman with PMH of BPH s/p TURP 2 current admission for generalized weakness for s/p bone biopsy and marrow aspirate Assessment and plan: ? Aspiration pneumonitis versus aspiration pneumonia afebrile overnight on Jevity 1.2 feeds at goal rate, tolerating it well Final Blood cultures from May 24 show no growth, prelim blood cultures from the show no growth, next x-ray shows decreased lung volumes more likely to be atelectasis, completed course of clindamycin and IV Unasyn and follow off antibiotics for now. 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 Failure to thrive 2. Multiple myeloma 3. S/P percutaneous endoscopic gastrostomy (PEG) tube placement Pain Ratin Pain Location: b/l feet only on palpation Pain Goal: Pain 4 or less Pain Plan: Current regimen Tomorrow's Labs & Rationales: cbc( hematuraia) bep/mg /phos (refeeding syndrome) RENAY GUTIERREZ,JUAN 06/08/16 1147: Attending Review Statement Attending Statement Attending Assessment/Plan: Attending MD Statement: examined this patient, discuss w/resident/PA/PULP BLEACHER, agreed w/resident/PA/PULP BLEACHER, reviewed EMR data (avail) Attending Assessment/Plan: Patient seen and examined. Plan of care discussed with the medical team and the patient. Available lab work and radiology test reports were reviewed. Patient is found to be lying in bed comfortably and does not appear to be in distress. He appears lethargic and and denies any chest pain or difficulty breathing or fever or chills. His sitter was discontinued this morning. He denies any new complaints. His MAXIMUM TEMPERATURE is 98.2. Rest of while signs are stable. His room air saturation is 96% . Chest exam shows overall decreased air entry with a few crackles. Abdomen is soft and nontender and the PEG tube area is clean. Sodium is 134 and other electrolytes are within normal limits. Chest x-ray done on 06/06 shows decreased lung volumes and a small persistent left pleural effusion and left lower lobe opacity likely atelectasis. His urinalysis done yesterday appears to be traumatic. Blood cultures so far are negative. Bone marrow pathology report was reviewed. Patient has hypercellular marrow with sheets of plasma cell. Assessment * Aspiration pneumonia * multiple myeloma confirmed with bone marrow biopsy; flow cystometry reveals poor prognostic features * Dysphagia status post PEG tube * Malnutrition * Recurrent fever without any clear source Plan * Plans for short-term rehabilitation when patient is ready for discharge. Await bed search. * Continue to feeding; aspiration precautions * Minimize daily blood work * incentive spirometry * Plans discharge to short-term rehabilitation with follow-up with oncology for discussion about chemotherapy. * Based on pathology report his prognosis is poor.
--- NOTE | 2016-06-08 10:01 | PN- Hematology ---
Subjective Subjective: He feels about the same. He has some pain in his feets and abdomen. Review of Systems Constitutional: Denies: fever. Musculoskeletal: Reports: joint pain (feets). All Other Systems: Reviewed and Negative Objective Vital Signs and I&Os Vital Signs Date Time Temp Pulse Resp B/P Pulse O2 O2 Flow FiO2 Ox Delivery Rate 06/08 0803 97.4 98 20 120/60 96 Room Air 06/08 0001 97.4 91 20 110/58 95 Room Air 06/08 0000 Room Air 06/07 1724 94 Room Air Room Air 06/07 1518 98.2 100 20 120/60 93 Room Air Intake & Output 06/08 1600 06/08 0800 06/08 0000 06/07 1600 06/07 0800 06/07 0000 Intake Total 5348 990 7446 1229 833 Output Total 900 1100 1300 1250 1300 Balance 241 -470 -284 -21 -467 Intake, IV 832 954 5980 300 Intake, Oral 0 0 0 Intake, 416 TPN/PPN Intake, Tube 416 630 104 208 Feeding Intake, Tube 125 125 325 Irrigant Output, Urine 900 1100 1300 1250 1300 Physical Exam: General Appearance: alert, awake, cachetic, oriented to self, location, month, but not year Head: atraumatic Ears, Nose, Throat: dry mucosa, missing dentures Respiratory: chest non-tender, no respiratory distress, crackles Cardiovascular: regular rate/rhythm Abdomen: normal bowel sounds, soft, tender to palpation in PEG insertion site, no organomegaly Extremities: pedal edema. Bilateral feet tender to palpation (below ankle). More on left. No erythema. 1+ edema in lower extremity. Bilateral knee tenderness. Neurologic/Psychiatric: awake, alert, oriented to self, location, but not month or year Skin: normal color Current Medications: Current Medications Sig/Dominique Start time Last Medication Dose Route Stop Time Status Admin Acetaminophen 650 MG Q6P PRN 05/24 2345 AC 06/06 PO 0845 Albuterol Sulfate 3 ML Q4P PRN 05/25 2200 AC 05/29 INH 1919 Ampicillin Sodium/ 1,500 MG Q6 06/02 1200 DC 06/07 Sulbactam Sodium IV 1318 Sodium Chloride 100 ML Bisacodyl 10 MG DAILY PRN 06/03 1125 AC 06/04 [place] 1059 Dextrose/Sodium 1,000 ML Q13H 05/30 1445 AC 06/08 Chloride IV 0907 Famotidine 20 MG DAILY 06/03 1122 AC 06/08 PO 0906 Heparin Sodium 5,000 UNIT Q8 05/25 0600 AC 06/08 (Porcine) SC 0619 Lactobacillus 1 CAP BID 05/28 1027 AC 06/08 Acidophilus PO 0906 Magnesium Sulfate 1 GM Q2H 06/07 1600 DC 06/07 Dextrose/Water 100 ML IV 06/07 1959 2215 Phosphate 250 MG PC AND AT BEDTIME 06/05 1800 AC 06/08 PO 0906 Polyethylene Glycol 17 GM DAILY PRN 05/26 1330 AC PO Senna/Docusate Sodium 2 TAB DAILY PRN 05/26 1330 AC PO Zinc Oxide 1 KARLEE BID 06/07 0830 AC 06/08 TOP 0906 Results Last 24 Hours of Lab Results: Laboratory Tests 06/08 0700 Chemistry Sodium (137 - 145 mmol/L) 134 L Potassium (3.5 - 5.1 mmol/L) 4.7 Chloride (98 - 107 mmol/L) 97 L Carbon Dioxide (22 - 30 mmol/L) 29 Anion Gap (5 - 16) 9 BUN (9 - 20 mg/dL) 12 Creatinine (0.7 - 1.2 mg/dL) 0.5 L Estimated GFR (>60 ml/min) > 60 BUN/Creatinine Ratio (7 - 25 %) 24.0 Phosphorus (2.5 - 4.5 mg/dL) 3.0 Magnesium (1.6 - 2.3 mg/dL) 1.9 Assessment/Plan Assessment/Recommendations: Mr. Nice is an 85-year-old with history of BPH s/p TURB who presents with significant weakness, weight loss, and decondition. He is cachetic on examination. He has still able to drive up until last week. On admission, he was noted to have hypercalcemia (13.9) and protein gap (total protein at 11.2, albumin at 3.9). His creatinine and hemoglobin are normal. CT imaging noted lytic bone lesions. Bone marrow was done by IR and pathology demonstrated plasma cell neoplasm. Flow cytometry demonstrated plasma cell dyscrasia. Beta-2 -microglobulin elevated at 5.47. IgG elevate at 3026. Immunofixation positive for IgG kappa. He is diagnosed with ISS stage III myeloma IgG kappa. PEG is in place and tolerating tube feeding with some refeeding syndrome. With regard to his MM, his age and frail condition make aggressive options limited. Pending his improvement, melphalan with prednisone can be a good option for the patient. Bone marrow and biopsy pathology as below: A. RIGHT ILIAC BONE, BIOPSY: PLASMA CELL NEOPLASM. HYPERCELLULAR MARROW FOR AGE (>90% CELLULAR) AND COMPOSED ALMOST ENTIRELY OF SHEETS OF ABNORMAL PLASMA CELLS SOME WITH BINUCLEATION AND PROMINENT NUCLEOLATION. MEGAKARYOCYTES ARE RARE. MATURING MYELOID AND ERYTHROID ELEMENTS ARE MARKEDLY REDUCED. PROMINENT LYMPHOID AGGREGATES ARE NOT SEEN. GRANULOMAS ARE NOT SEEN. TRABECULAR BONE IS NOT PRESENT IN THESE CLOT SPECIMENS. IRON STAINS SHOW REDUCED STORAGE IRON IN THESE CLOT SPECIMENS. SEE NOTE. B. BONE MARROW ASPIRATE, RIGHT ILIAC BONE: MARKEDLY HYPOCELLULAR ASPICULAR AND HEMODILUTE. TRACK AND FIELD COACH CELL COUNT COULD NOT BE OBTAINED DUE TO MARKED HYPOCELLULARITY. HOWEVER, THERE ARE NUMEROUS ABNORMAL ENLARGED PLASMA CELLS SHOWING PROMINENT NUCLEOLI. PRUSSIAN BLUE IRON STAIN PERFORMED ON THE SMEAR SHOWS HEMODILUTE SMEAR WITH NO INCREASE IN RING SIDEROBLASTS. SEE NOTE. IMMUNOSTAINS: CD138 highlights clusters of plasma cells (~90% of cellularity) which are kappa restricted with minimal lambda staining. Pancytokeratin is negative on both parts. Immunoperoxidase studies performed on paraffin sections provide additional diagnostic information not provided by flow cytometry. All stains have functional controls. FLOW CYTOMETRY: Per report, the bone marrow shows results consistent with plasma cell dyscrasia. Plasma cells in this marrow specimen are CD20(kamar)+ CD38++ CD28+ CD56+ CD117- CD45- and monoclonal kappa light chain restricted. In addition, there is a subset of kappa-dominant B-cells possibly caused by paraprotein agglutination. Urge close correlation with tissue histology and molecular markers for definitive characterization. In MGUS and multiple myeloma, CD117+ is associated with a more favorable prognosis. In multiple myeloma, CD28+ is associated with a less favorable prognosis (See JCO 26:[id number], 2008 and Leuk Res 32:379-382, 2008). Recommendations: 1. Follow up as outpatient to discuss therapy likely melphalan/prednisone 2. Monitor refeeding syndrome with aggressive repletion 3. Continue PT and likely STR Please call [phone] with any questions or concerns. Problem List: 1. Multiple myeloma 2. Lytic bone lesions on xray
--- NOTE | 2016-06-08 11:51 | NUR ---
PHYSICAL THERAPY- ATTEMPTED TO SEE PT THIS AM, PT REFUSED OOB. STATES HE WILL "LET US KNOW" IF HE CHANGES HIS MIND AND WOULD LIKE TO GET UP. WILL FOLLOW APPROPRIATE.
[2016-06-08 12:57] VITALS: BP 100/62
[2016-06-08 14:02] LABS: ABSOLUTE BASOPHIL COUNT 0 /CUMM (0.0-0.2); ABSOLUTE EOSINOPHIL COUNT 0 /CUMM (0.0-0.7); ABSOLUTE GRANULOCYTE CT 9.6 /CUMM (1.4-6.5); ABSOLUTE LYMPH COUNT 0.9 /CUMM (1.2-3.4); ABSOLUTE MONOCYTE COUNT 1.1 /CUMM (0.10-0.60); BASOPHIL % 0.4 % (0.0-2.0); EOSINOPHIL % 0.4 % (0-5); GRANULOCYTE % 81.8 % (42.2-75.2); HEMATOCRIT 34.3 % (42-52); MEAN CORPUSCULAR HGB 31.2 PG (27.0-31.0); MEAN CORPUSCULAR HGB CONC 33.5 G/DL (33.0-37.0); MEAN CORPUSCULAR VOLUME 93.1 FL (80.0-94.0); MEAN PLATELET VOLUME 7.7 FL (7.4-10.4); PLATELET COUNT 514 /CUMM (130-400); RBC DISTRIBUTION WIDTH 14.2 % (11.5-14.5); RED BLOOD CELL CT 3.69 /CUMM (4.70-6.10); WHITE BLOOD CELL COUNT 11.7 /CUMM (4.8-10.8)
--- NOTE | 2016-06-08 14:07 | NUR ---
SPEECH THERAPY: ST ATTEMPTED TO SEE PT FOR DYSPHAGIA TX. PT SLEEPING AT BEDSIDE W/ OPEN MOUTH POSTURE. ROUSABLE TO VERBAL STIM. PT DECLINED OFFER OF ORAL CARE, ICE CHIPS, AND PO TRIALS STATING HE WANTED TO SLEEP. D/W RN. PER DYSPHAGIA TX FROM 06/08, PT IS UNABLE TO SAFELY MEET NUTRITION/HYDRATION NEEDS ORALLY.
--- NOTE | 2016-06-08 14:14 | NUR ---
LATE ENTRY: PATIENT NOTED TO HAVE FRESH BLOOD IN THE GUERRA TUBING. OTHERWISE, REMAINS ASYMPTOMATIC. VSS. BP 100/62, 98.0 TEMP, 94 % ON RA, [address] GRABIEL CARTER NOTIFIED. PER , TO DRAW STAT CDC. OKAY TO GIVE HEPARIN THIS AFTERNOON. NO FURTHER ORDERS AT THIS TIME. WILL CONT TO F/U PT CLOSELY.
[2016-06-08 16:20] VITALS: BP 104/50
[2016-06-08 23:41] VITALS: BP 110/52; BP 138/86
--- NOTE | 2016-06-09 07:24 | PN- Housestaff ---
Subjective Follow-up For: Multiple myeloma, deconditioning, failure to thrive Subjective: seen and examined patient, complains of pain in abdomen around the peg site and b/l foot pain. Denies fever, shortness breath. Review of Systems Constitutional: Denies: chills, diaphoresis, fever, malaise, weakness, unexplained weight loss. Cardiovascular: Denies: chest pain, edema, orthopena, palpitations, peripheral edema, syncope. Gastrointestinal: Reports: abdominal pain. Musculoskeletal: Reports: back pain, joint pain. Objective Last 24 Hrs of Vital Signs/I&O Vital Signs Date Time Temp Pulse Resp B/P Pulse O2 O2 Flow FiO2 Ox Delivery Rate 06/09 0000 Room Air 06/08 2341 99.3 91 22 110/52 94 Room Air 06/08 1925 95 Room Air 06/08 1631 Room Air Room Air 06/08 1620 99.4 101 21 104/50 93 06/08 1349 94 Room Air 06/08 1257 98.0 106 18 100/62 94 Room Air Intake & Output 06/09 1600 06/09 0800 06/09 0000 Intake Total 1141 1014 Output Total 1200 350 Balance -59 664 Intake, IV 600 525 Intake, Tube 416 364 Feeding Intake, Tube 125 125 Irrigant Output, Urine 1200 350 Physical Exam General Appearance: Alert Cardiovascular: Regular Rate, Normal S1, Normal S2 Lungs: Normal Air Movement Abdomen: Normal Bowel Sounds, Soft, tenderness to palpation around site of peg tube, no redness, swelling or discharge noted Current Medications: Current Medications Sig/Dominique Start time Last Medication Dose Route Stop Time Status Admin Acetaminophen 650 MG Q6P PRN 05/24 2345 AC 06/06 PO 0845 Albuterol Sulfate 3 ML Q4P PRN 05/25 2200 AC 05/29 INH 1919 Bisacodyl 10 MG DAILY PRN 06/03 1125 AC 06/04 [place] 1059 Dextrose/Sodium 1,000 ML Q13H 05/30 1445 AC 06/08 Chloride IV 1914 Famotidine 20 MG DAILY 06/03 1122 AC 06/08 PO 0906 Heparin Sodium 5,000 UNIT Q8 05/25 0600 AC 06/08 (Porcine) SC 2226 Lactobacillus 1 CAP BID 05/28 1027 AC 06/08 Acidophilus PO 2226 Phosphate 250 MG PC AND AT BEDTIME 06/05 1800 AC 06/08 PO 2225 Polyethylene Glycol 17 GM DAILY PRN 05/26 1330 AC PO Senna/Docusate Sodium 2 TAB DAILY PRN 05/26 1330 AC PO Zinc Oxide 1 KARLEE BID 06/07 0830 AC 06/08 TOP 2225 Last 24 Hrs of Lab/Bert Results Last 24 Hrs of Labs/Mics: Laboratory Tests 06/09/16 0705: Sodium Pending, Potassium Pending, Chloride Pending, Carbon Dioxide Pending, Anion Gap Pending, BUN Pending, Creatinine Pending, BUN/Creatinine Ratio Pending , Phosphorus Pending, Magnesium Pending, CBC w Diff Pending, WBC Pending, RBC Pending, Hgb Pending, Hct Pending, MCV Pending, MCH Pending, RDW Pending, Plt Count Pending, MPV Pending, PUBS MCHC Pending 06/08/16 1251: CBC w Diff NO MAN DIFF REQ, RBC 3.69 L, MCV 93.1, MCH 31.2 H, RDW 14.2, MPV 7.7, Gran % 81.8 H, Lymphocytes % 7.7 L, Monocytes % 9.7 H, Eosinophils % 0.4 , Basophils % 0.4, Absolute Granulocytes 9.6 H, Absolute Lymphocytes 0.9 L, Absolute Monocytes 1.1 H, Absolute Eosinophils 0, Absolute Basophils 0, PUBS MCHC 33.5 Assessment/Plan Assessment: 85-year-old gentleman with PMH of BPH s/p TURP 2 current admission for generalized weakness for s/p bone biopsy and marrow aspirate Assessment and plan: ? Aspiration pneumonitis versus aspiration pneumonia afebrile overnight on Jevity 1.2 feeds at goal rate, tolerating it well Final Blood cultures from May 24 show no growth, prelim blood cultures from the show no growth, next x-ray shows decreased lung volumes more likely to be atelectasis, completed course of clindamycin and IV Unasyn and follow off antibiotics for now. However he could still be continuing to aspirate Given spirometry at bedside Bilateral feet pain X-rays show no acute abnormality or focal bone lesion, there is narrowing of the first MTP joint with small marginal spur Suspicion for multiple myeloma : -Heme/onc on board appreciate recommendations -Bone marrow biopsy results show hypercellular marrow composed of abnormal plasma cells Flow cytometry is consistent with plasma cell dyscrasia, CD28+ which is associated with less favorable prognosis calcuim pending Hypocalcemia/hypokalemia/hypomagnesmia/hypophos Improving we'll continue to monitor Diet: NPO.tube feeds DVT prophylaxis: subcutaneous heparin and alps FULL CODE Updated son today ([phone]) Problem List: 1. Multiple myeloma 2. S/P percutaneous endoscopic gastrostomy (PEG) tube placement 3. Failure to thrive Pain Ratin Pain Location: abdomen Pain Goal: Pain 4 or less Pain Plan: will give IV tyelenol Tomorrow's Labs & Rationales: on tube feeds (BEP/mg/phos)
[2016-06-09 08:05] LABS: ABSOLUTE BASOPHIL COUNT 0.1 /CUMM (0.0-0.2); ABSOLUTE EOSINOPHIL COUNT 0.1 /CUMM (0.0-0.7); ABSOLUTE GRANULOCYTE CT 7.5 /CUMM (1.4-6.5); BASOPHIL % 0.7 % (0.0-2.0); EOSINOPHIL % 0.8 % (0-5); GRANULOCYTE % 77.7 % (42.2-75.2); MEAN CORPUSCULAR HGB 31.6 PG (27.0-31.0); MEAN CORPUSCULAR VOLUME 93.1 FL (80.0-94.0); MEAN PLATELET VOLUME 7.8 FL (7.4-10.4); PLATELET COUNT 533 /CUMM (130-400); RBC DISTRIBUTION WIDTH 14.5 % (11.5-14.5); RED BLOOD CELL CT 3.44 /CUMM (4.70-6.10); WHITE BLOOD CELL COUNT 9.6 /CUMM (4.8-10.8)
--- NOTE | 2016-06-09 10:01 | PN- Hematology ---
Subjective Subjective: He has some sacral pain this morning. He denies any new symptoms. Review of Systems: Constitutional: Denies: chills, fever. Cardiovascular: Denies: chest pain. Gastrointestinal: Reports abdominal pain. Sacral pain. Neurological/Psychological: Reports: confusion. All Other Systems: Reviewed and Negative Objective Vital Signs and I&Os Vital Signs Date Time Temp Pulse Resp B/P Pulse O2 O2 Flow FiO2 Ox Delivery Rate 06/09 0932 Room Air Room Air 06/09 0822 94 Room Air 06/09 0000 Room Air 06/08 2341 99.3 91 22 110/52 94 Room Air 06/08 1925 95 Room Air 06/08 1631 Room Air Room Air 06/08 1620 99.4 101 21 104/50 93 06/08 1349 94 Room Air 06/08 1257 98.0 106 18 100/62 94 Room Air Intake & Output 06/09 1600 06/09 0800 06/09 0000 06/08 1600 06/08 0800 06/08 0000 Intake Total 1141 9479 555 5672 630 Output Total 1200 282 950 2840 Balance -59 664 541 241 -470 Intake, IV 600 525 600 Intake, Oral 0 0 Intake, Tube 416 364 416 416 630 Feeding Intake, Tube 125 125 125 125 Irrigant Output, Urine 1200 871 603 6013 Physical Exam: General Appearance: alert, awake, cachetic, oriented to self, location, month, but not year Head: atraumatic Ears, Nose, Throat: dry mucosa, missing dentures. Respiratory: chest non-tender, no respiratory distress, crackles Cardiovascular: regular rate/rhythm Abdomen: normal bowel sounds, soft, tender to palpation in PEG insertion site, no organomegaly Extremities: Bilateral feet tender to palpation (below ankle). More on left. No erythema. Stable. 1+ edema in lower extremity. Bilateral knee tenderness. Neurologic/Psychiatric: awake, oriented to self, but not month or year Skin: normal color Current Medications: Current Medications Sig/Dominique Start time Last Medication Dose Route Stop Time Status Admin Acetaminophen 1,000 MG ONCE ONE 06/09 0900 DC N/A 1 UNIT IV 06/09 914 Acetaminophen 650 MG Q6P PRN 05/24 2345 AC 06/06 PO 0845 Albuterol Sulfate 3 ML Q4P PRN 05/25 2200 AC 05/29 INH 1919 Bisacodyl 10 MG DAILY PRN 06/03 1125 AC 06/04 [place] 1059 Dextrose/Sodium 1,000 ML Q13H 05/30 1445 DC 06/08 Chloride IV 1914 Famotidine 20 MG DAILY 06/03 1122 AC 06/08 PO 0906 Heparin Sodium 5,000 UNIT Q8 05/25 0600 AC 06/08 (Porcine) SC 2226 Lactobacillus 1 CAP BID 05/28 1027 AC 06/08 Acidophilus PO 2226 Magnesium Sulfate 1 GM Q2H 06/09 0900 AC Dextrose/Water 100 ML IV 06/09 1259 Phosphate 250 MG PC AND AT BEDTIME 06/05 1800 AC 06/08 PO 2225 Polyethylene Glycol 17 GM DAILY PRN 05/26 1330 AC PO Senna/Docusate Sodium 2 TAB DAILY PRN 05/26 1330 AC PO Zinc Oxide 1 KARLEE BID 06/07 0830 AC 06/08 TOP 2225 Results Last 24 Hours of Lab Results: Laboratory Tests 06/09 06/08 0705 1251 Chemistry Sodium (137 - 145 mmol/L) 134 L Potassium (3.5 - 5.1 mmol/L) 5.2 H Chloride (98 - 107 mmol/L) 102 Carbon Dioxide (22 - 30 mmol/L) 28 Anion Gap (5 - 16) 5 BUN (9 - 20 mg/dL) 14 Creatinine (0.7 - 1.2 mg/dL) 0.5 L Estimated GFR (>60 ml/min) > 60 BUN/Creatinine Ratio (7 - 25 %) 28.0 H Calcium (8.4 - 10.2 mg/dL) 8.2 L Phosphorus (2.5 - 4.5 mg/dL) 3.6 Magnesium (1.6 - 2.3 mg/dL) 1.7 Hematology CBC w Diff NO MAN DIFF REQ NO MAN DIFF REQ WBC (4.8 - 10.8 /CUMM) 9.6 11.7 H RBC (4.70 - 6.10 /CUMM) 3.44 L 3.69 L Hgb (14.0 - 18.0 G/DL) 10.9 L 11.5 L Hct (42 - 52 %) 32.0 L 34.3 L MCV (80.0 - 94.0 FL) 93.1 93.1 MCH (27.0 - 31.0 PG) 31.6 H 31.2 H RDW (11.5 - 14.5 %) 14.5 14.2 Plt Count (130 - 400 /CUMM) 533 H 514 H MPV (7.4 - 10.4 FL) 7.8 7.7 Gran % (42.2 - 75.2 %) 77.7 H 81.8 H Lymphocytes % (20.5 - 51.1 %) 10.1 L 7.7 L Monocytes % (1.7 - 9.3 %) 10.7 H 9.7 H Eosinophils % (0 - 5 %) 0.8 0.4 Basophils % (0.0 - 2.0 %) 0.7 0.4 Absolute Granulocytes (1.4 - 6.5 /CUMM) 7.5 H 9.6 H Absolute Lymphocytes (1.2 - 3.4 /CUMM) 1.0 L 0.9 L Absolute Monocytes (0.10 - 0.60 /CUMM) 1.0 H 1.1 H Absolute Eosinophils (0.0 - 0.7 /CUMM) 0.1 0 Absolute Basophils (0.0 - 0.2 /CUMM) 0.1 0 PUBS MCHC (33.0 - 37.0 G/DL) 34.0 33.5 Assessment/Plan Assessment/Recommendations: Mr. Nice is an 85-year-old with history of BPH s/p TURB who presents with significant weakness, weight loss, and decondition. He is cachetic on examination. He has still able to drive up until last week. On admission, he was noted to have hypercalcemia (13.9) and protein gap (total protein at 11.2, albumin at 3.9). His creatinine and hemoglobin are normal. CT imaging noted lytic bone lesions. Bone marrow was done by IR and pathology demonstrated plasma cell neoplasm. Flow cytometry demonstrated plasma cell dyscrasia. Beta-2 -microglobulin elevated at 5.47. IgG elevate at 3026. Immunofixation positive for IgG kappa. He is diagnosed with ISS stage III myeloma IgG kappa. He is tolerating tube feeding. Performance status has not improved much. He has been refusing physical therapy. He is still at risk for aspiration with oral intake. His age and frail condition make aggressive options limited. Pending his improvement, melphalan with prednisone can be a good option for the patient. Current ECOG PS of at least 3 currently. Recommendations: 1. Follow up as outpatient to discuss therapy likely melphalan/prednisone 2. Continue PT and STR Please call [phone] with any questions or concerns. Problem List: 1. Multiple myeloma 2. Hypocalcemia and hypomagnesemia of 3. Lytic bone lesions on xray 4. Failure to thrive
--- NOTE | 2016-06-09 10:05 | NUR ---
PHYSICAL THERAPY- ATTEMPTED TO SEE PT THIS AM x2, PT REFUSED BOTH TIMES. WILL CONT TO FOLLOW APPROPRIATE.
[2016-06-09 11:13] VITALS: BP 112/60
--- NOTE | 2016-06-09 11:42 | PN- Att Addend ---
Attending Addendum Attending Brief Note Attending MD Statement: examined this patient, discuss w/resident/PA/CLASSROOM PARAPROFESSIONAL, agreed w/resident/PA/CLASSROOM PARAPROFESSIONAL, reviewed EMR data (avail) Attending Assessment/Plan: Patient seen and examined. Plan of care discussed with the medical team and the patient. Available lab work and radiology test reports were reviewed. Patient is found to be lying in bed. He is complaining of pain over the PEG site area and left side abdomen. In addition he seems to have pain in the right foot and Namenda right ankle is moved he is screaming with pain. Vital Signs Date Time Temp Pulse Resp B/P Pulse O2 O2 Flow FiO2 Ox Delivery Rate 06/09 1113 98.3 92 20 112/60 94 Room Air 06/09 0932 Room Air Room Air 06/09 0822 94 Room Air 06/09 0000 Room Air 06/08 2341 99.3 91 22 110/52 94 Room Air 06/08 1925 95 Room Air 06/08 1631 Room Air Room Air 06/08 1620 99.4 101 21 104/50 93 06/08 1349 94 Room Air 06/08 1257 98.0 106 18 100/62 94 Room Air Intake & Output 06/09 1600 06/09 0800 06/09 0000 Intake Total 1141 1014 Output Total 1200 350 Balance -59 664 Intake, IV 600 525 Intake, Tube 416 364 Feeding Intake, Tube 125 125 Irrigant Output, Urine 1200 350 Chest exam shows overall decreased air entry with a few crackles. Abdomen is soft and nondistended but he is tender in the left side of the abdomen close to PEG tube placement area. Bowel sounds are present. Right ankle is tender to touch with limited range of motion which causes severe pain . Laboratory Tests 06/09 06/08 0705 1251 Chemistry Sodium (137 - 145 mmol/L) 134 L Potassium (3.5 - 5.1 mmol/L) 5.2 H Chloride (98 - 107 mmol/L) 102 Carbon Dioxide (22 - 30 mmol/L) 28 Anion Gap (5 - 16) 5 BUN (9 - 20 mg/dL) 14 Creatinine (0.7 - 1.2 mg/dL) 0.5 L Estimated GFR (>60 ml/min) > 60 BUN/Creatinine Ratio (7 - 25 %) 28.0 H Calcium (8.4 - 10.2 mg/dL) 8.2 L Phosphorus (2.5 - 4.5 mg/dL) 3.6 Magnesium (1.6 - 2.3 mg/dL) 1.7 Hematology CBC w Diff NO MAN DIFF REQ NO MAN DIFF REQ WBC (4.8 - 10.8 /CUMM) 9.6 11.7 H RBC (4.70 - 6.10 /CUMM) 3.44 L 3.69 L Hgb (14.0 - 18.0 G/DL) 10.9 L 11.5 L Hct (42 - 52 %) 32.0 L 34.3 L MCV (80.0 - 94.0 FL) 93.1 93.1 MCH (27.0 - 31.0 PG) 31.6 H 31.2 H RDW (11.5 - 14.5 %) 14.5 14.2 Plt Count (130 - 400 /CUMM) 533 H 514 H MPV (7.4 - 10.4 FL) 7.8 7.7 Gran % (42.2 - 75.2 %) 77.7 H 81.8 H Lymphocytes % (20.5 - 51.1 %) 10.1 L 7.7 L Monocytes % (1.7 - 9.3 %) 10.7 H 9.7 H Eosinophils % (0 - 5 %) 0.8 0.4 Basophils % (0.0 - 2.0 %) 0.7 0.4 Absolute Granulocytes (1.4 - 6.5 /CUMM) 7.5 H 9.6 H Absolute Lymphocytes (1.2 - 3.4 /CUMM) 1.0 L 0.9 L Absolute Monocytes (0.10 - 0.60 /CUMM) 1.0 H 1.1 H Absolute Eosinophils (0.0 - 0.7 /CUMM) 0.1 0 Absolute Basophils (0.0 - 0.2 /CUMM) 0.1 0 PUBS MCHC (33.0 - 37.0 G/DL) 34.0 33.5 Assessment * Aspiration pneumonia * multiple myeloma confirmed with bone marrow biopsy; flow cystometry reveals poor prognostic features * Dysphagia status post PEG tube * Malnutrition * Recurrent fever without any clear source * Right foot pain ? Gout * Left upper abdomen pain of unclear etiology Plan * Obtain CT abdomen to rule out any complication related to PEG tube * Obtain x-ray of right foot; check uric acid level; use IV Tylenol for pain * incentive spirometry * Patients not stable for discharge today. * Based on pathology report his prognosis is poor.
--- NOTE | 2016-06-09 13:29 | CT SCAN REPORT ---
EXAMINATION: CT ABDOMEN AND PELVIS WITHOUT CONTRAST CLINICAL INFORMATION: Status post PEG tube with feeds, question perforation COMPARISON: None. TECHNIQUE: Multidetector volumetric imaging was performed from the superior aspect of the liver through the pubic symphysis. Sagittal and coronal reformatted images were obtained on the technologist's workstation. DLP: 258.20 mGy-cm. FINDINGS: Assessment is limited in some regions due to motion artifact. LUNG BASES: There is a partially visualized small left pleural effusion. There is adjacent opacification of the dependent left lower lobe, favoring atelectasis. LIVER, GALLBLADDER, AND BILIARY TREE: The liver is normal in size, shape, and attenuation. No focal hepatic lesion or biliary ductal dilatation is present. The gallbladder appears somewhat contracted and is otherwise grossly unremarkable. PANCREAS: Unremarkable. SPLEEN: Unremarkable. ADRENAL GLANDS: Unremarkable. KIDNEYS AND URETERS: No hydronephrosis. There are 2 mid to lower right renal calculi measuring up to approximately 8 mm in diameter. BLADDER: Partially distended with Grant catheter in place. Gas within the bladder may be due to recent catheterization. GASTROINTESTINAL TRACT: A percutaneous gastrostomy tube is present which appears to terminate in the stomach, though assessment is suboptimal given the motion artifact. There is suspected to be a tiny focus of free air in the anterior abdomen near the PEG tube site (image 32/89), which may be postprocedural in nature. The small bowel is unremarkable. There is a moderate to large amount of stool in the colon, most prominently within the rectum. No evidence of bowel obstruction. No abnormal bowel wall thickening is seen. The appendix is unremarkable. ABDOMINAL WALL: No significant hernia is appreciated. LYMPH NODES: No discrete lymphadenopathy is seen, though assessment is limited in the absence of intravenous contrast. VASCULAR: There is atherosclerotic calcification along the aorta and iliac arteries. PELVIC VISCERA: The prostate gland is enlarged, measuring 5.2 cm in transverse diameter. OSSEOUS STRUCTURES: There are multiple scattered lytic lesions throughout the bones. A soft tissue mass is present in the spinous process of L2. Osteopenia is noted along with degenerative changes of the spine. IMPRESSION: 1. PEG tube tip appears to lie within the stomach, though assessment is suboptimal in the setting of patient motion artifact. A tiny focus of free air is suspected in the anterior abdomen near the PEG tube, which may be postprocedural in nature if the tube has been recently placed. 2. Partially visualized small left pleural effusion with adjacent dependent opacity favoring atelectasis. 3. Large amount of stool in the rectum. Moderate to large amount of stool in the remainder of the colon. 4. Enlarged prostate gland. 5. Multiple lytic osseous lesions, likely representing either myeloma or metastatic disease. Soft tissue mass noted in the L2 spinous process. 6. Right renal calculi, without hydronephrosis.
[2016-06-09 16:36] VITALS: BP 106/62
[2016-06-09 23:40] VITALS: BP 111/58
--- NOTE | 2016-06-10 05:29 | Discharge Summary ---
Visit Information Visit Dates Admission Date: 05/24/16 Discharge Date: 06/17/16 Hospital Course Course Attending Physician: Dr. Lyn Primary Care Physician: BEVERLEY SANTAMARIA MD Consulting Request: Consulting Specialty: Hematology/Oncology Consulting Physician: JUANITO JAVIER MD Hospital Course: This is an 85-year-old male with a past medical history of BPH s/p TURP who presented to the ED with complaints of nonproductive cough and significant weight loss over the course of one year. Prior to admission, and son found the patient be very weak with new urinary incontinence. Family had noticed weight loss at an average of 1-2 pounds/week despite good oral intake. Patient reported feeling shaky, lightheaded but denied any fevers, chills, chest pain, palpitation, abdominal pain, nausea, vomiting at time of admission. In the ED: Vitals: 97.4/82/18/11 8/58/94% on room air Physical exam: Pertinent positives for very dry mucous membranes along with a cachectic appearance. Labs: Sodium 136, potassium 4.9, chloride 97, carbon dioxide 35, anion gap 5, calcium 13.9, PTH <6.3, AST 22, ALT 20, alkaline phosphatase 116, troponin less than 0.01 CBC: WBC 0.8, Hgb 15, hematocrit 44.6, previous 290 Patient was admitted to the general medicine floor for further workup of hypercalcemia. 1) Multiple Myeloma with hypercalcemia: IV fluids were started on admission, SPEP, UPEP were sent. Hematology consult was placed. Given that the hypercalcemia was symptomatically, patient started on Pamidronate 60 mg 1 with calciumat at 12.3. Skeletal survey was done and noted numerous bone lesions concerning for multiple myeloma. Other investigations sent were serum free light chains, serum immunofixation, beta-2 macroglobulin, serum immunoglobulin. Patient had a bone marrow biopsy on 05/29. Flow cytometry revealed plasma cell dyscrasia. Data 2 microglobulin was elevated at 5.47. IgG elevated at 3026. Immunofixation positive for IgG. Staged at ISS stage III. Results of bone marrow biopsy came back to show the presence of a plasma cell dyscrasia ( Plasma cells in this marrow specimen are CD20(kamar)+, CD38++, CD28+, CD56+, CD117 -, CD45- and monoclonal kappa light chain restricted). There was an extensive discussion with the family regarding goals of care and the extend of investigation/management. The decision was finally made to ahead with with management. Patient will be seen by hematology as an outpatient for possible melphalan with prednisone. 2) Possible aspiration pneumonia: Patient aspirated on 05/26 while eating lunch, chest x-ray showed signs of evolving infection. patient was put nothing by mouth and clindamycin was started. He was continued on clindamycin for 8 days. CBC showed some improvement but went back up on day 8. Started on Unasyn on 06/02 for recurrent aspiration. The chest x-ray at the time showed hyperexpanded lungs with coarsened interstitial markings consistent emphysematous changes. 3) Cachexia and failure to thrive: Considering his cachexia and difficulty swallowing, patient underwent a formal swallow evaluation. He failed multiple swallow evaluations and had to be made nothing by mouth. He had a PEG tube placement done on 06/02. He was put on Jevity 1.2, till he reached goal rate. Extensive discussions were had with the family (especially the son was the POHesham, who is very involved with the patient's care) regarding code status and patient' s was eventually made DNR/DNI Patient continued to deteriorate, was unable to work with PT and became more gradually unresponsive. He was made hospice. Patient ary at 1:30 a.m. Complications: Allergies: Coded Allergies: NO KNOWN ALLERGIES (05/24/16) Significant Procedures: Bone Marrow Biopsy done on 05/30/2016: A. RIGHT ILIAC BONE, BIOPSY: PLASMA CELL NEOPLASM. HYPERCELLULAR MARROW FOR AGE (>90% CELLULAR) AND COMPOSED ALMOST ENTIRELY OF SHEETS OF ABNORMAL PLASMA CELLS SOME WITH BINUCLEATION AND PROMINENT NUCLEOLATION. MEGAKARYOCYTES ARE RARE. MATURING MYELOID AND ERYTHROID ELEMENTS ARE MARKEDLY REDUCED. PROMINENT LYMPHOID AGGREGATES ARE NOT SEEN. GRANULOMAS ARE NOT SEEN. TRABECULAR BONE IS NOT PRESENT IN THESE CLOT SPECIMENS. IRON STAINS SHOW REDUCED STORAGE IRON IN THESE CLOT SPECIMENS. SEE NOTE. B. BONE MARROW ASPIRATE, RIGHT ILIAC BONE: MARKEDLY HYPOCELLULAR ASPICULAR AND HEMODILUTE. STUDY ABROAD COORDINATOR CELL COUNT COULD NOT BE OBTAINED DUE TO MARKED HYPOCELLULARITY. HOWEVER, THERE ARE NUMEROUS ABNORMAL ENLARGED PLASMA CELLS SHOWING PROMINENT NUCLEOLI. PRUSSIAN BLUE IRON STAIN PERFORMED ON THE SMEAR SHOWS HEMODILUTE SMEAR WITH NO INCREASE IN RING SIDEROBLASTS. SEE NOTE. IMMUNOSTAINS: CD138 highlights clusters of plasma cells (~90% of cellularity) which are kappa restricted with minimal lambda staining. Pancytokeratin is negative on both parts. Immunoperoxidase studies performed on paraffin sections provide additional diagnostic information not provided by flow cytometry. All stains have functional controls. FLOW CYTOMETRY: Per report, the bone marrow shows results consistent with plasma cell dyscrasia. Plasma cells in this marrow specimen are CD20(kamar)+ CD38++ CD28+ CD56+ CD117- CD45- and monoclonal kappa light chain restricted. In addition, there is a subset of kappa-dominant B-cells possibly caused by paraprotein agglutination. Urge close correlation with tissue histology and molecular markers for definitive characterization. In MGUS and multiple myeloma, CD117+ is associated with a more favorable prognosis. In multiple myeloma, CD28+ is associated with a less favorable prognosis (See JCO 26:4644-2745, 2008 and Leuk Res 32:379-382, 2008). Pertinent Lab Results: Vital Signs Date Time Temp Pulse Resp B/P Pulse O2 O2 Flow FiO2 Ox Delivery Rate 06/09 2340 97.8 95 18 111/58 94 Room Air 06/09 1859 93 Room Air 06/09 1636 98.0 90 17 106/62 96 Room Air 06/09 1113 98.3 92 20 112/60 94 Room Air 06/09 0932 Room Air Room Air 06/09 0822 94 Room Air 06/09 0800 Room Air 06/09 0000 Room Air 06/08 2341 99.3 91 22 110/52 94 Room Air 06/08 1925 95 Room Air 06/08 1631 Room Air Room Air 06/08 1620 99.4 101 21 104/50 93 06/08 1349 94 Room Air 06/08 1257 98.0 106 18 100/62 94 Room Air 06/08 0803 97.4 98 20 120/60 96 Room Air 06/08 0001 97.4 91 20 110/58 95 Room Air 06/08 0000 Room Air 06/07 1724 94 Room Air Room Air 06/07 1518 98.2 100 20 120/60 93 Room Air 06/07 0922 93 Room Air Room Air 06/07 0812 98.8 94 20 120/60 92 Room Air 06/07 0013 98.0 90 20 119/63 95 06/06 1925 94 Room Air 06/06 1741 Room Air Room Air 06/06 1601 99.0 88 21 120/60 94 06/06 0854 93 Room Air 06/06 0816 98.8 96 18 120/58 95 Room Air 06/05 2326 98.1 89 18 118/59 97 Room Air 06/05 1943 98.6 06/05 1919 94 Room Air 06/05 1720 101.0 93 18 116/46 94 Room Air 06/05 1625 100.8 06/05 1105 94 Room Air Room Air 06/05 0810 99.4 88 18 118/60 94 Room Air 06/05 0047 98.2 89 18 120/54 94 Room Air 06/04 1049 95 Room Air 06/04 0800 Room Air 06/04 0800 98.3 79 22 112/60 93 06/04 0544 94 Room Air 06/04 0000 Room Air 06/03 2345 98.5 87 18 114/60 93 Room Air 06/03 2049 92 Room Air 06/03 0844 92 Room Air 06/03 0800 93 Room Air Room Air 06/03 0800 98.1 77 20 116/60 94 Room Air 06/03 0009 97.8 82 18 120/57 94 Room Air 06/02 1705 95 Room Air Room Air 06/02 1653 98.0 90 18 120/67 91 06/02 1604 Room Air Room Air 06/02 1024 92 Room Air 06/02 0934 Room Air Room Air 06/02 0800 98.5 90 20 118/58 93 Room Air 06/02 0014 98.3 84 20 126/64 92 Room Air 06/01 1659 Room Air Room Air 06/01 1640 98.4 87 20 118/62 92 06/01 1600 93 Room Air Room Air 06/01 1430 94 Room Air 06/01 0910 98.0 85 20 118/62 93 Room Air 06/01 0800 93 Room Air Room Air 06/01 0007 98.0 77 19 116/64 94 Room Air 05/31 1608 98.6 84 20 112/58 93 05/31 1600 93 Room Air Room Air 05/31 1020 93 Room Air 05/31 0841 98.0 78 20 114/60 94 Room Air 05/31 0800 93 Room Air Room Air 05/30 2340 97.3 69 18 132/72 92 Room Air 05/30 1649 93 Room Air 05/30 1600 Room Air 05/30 1554 98.2 83 21 123/74 95 Room Air 05/30 0825 97.7 78 20 120/60 92 Room Air 05/30 0751 95 Room Air 05/29 2349 98.0 74 20 109/55 94 Room Air 05/29 1922 94 Room Air 05/29 1605 98.2 68 20 125/72 94 05/29 1600 Nasal 2.0L Cannula 05/29 1405 93 Room Air 05/29 0811 98.2 71 20 132/64 95 05/28 2342 98.5 84 20 122/60 95 Nasal 2.0L Cannula 05/28 2211 93 Room Air 05/28 1730 18 93 Room Air Room Air 05/28 1617 98.2 87 20 118/52 96 Nasal 1.5L Cannula 05/28 1600 93 Room Air Room Air 05/28 1230 97 Nasal 1.5L Cannula 05/28 0837 98.0 73 20 120/60 97 18 0800 93 Nasal 2.0L Cannula 05/27 2320 98.0 72 20 121/65 96 Nasal 2.0L Cannula 05/27 2103 96 Nasal 2.0L Cannula 05/27 1659 98.7 80 20 110/68 98 Nasal 2.0L Cannula 05/27 1600 94 Nasal 2.0L Cannula 05/27 1244 94 Room Air 05/27 0800 93 Nasal 2.0L Cannula 05/27 0658 98.2 65 20 120/72 93 17 0000 Nasal 2.0L Cannula 05/26 2350 98.2 108 18 107/54 97 Nasal 2.0L Cannula 05/26 1600 92 Nasal 2.0L Cannula 05/26 1540 97.8 104 18 130/58 92 16 1102 96 Room Air Room Air 16 0813 98.2 71 20 100/50 94 Room Air 15 2340 97.6 59 20 110/52 93 15 2150 Room Air 15 1603 97.8 54 19 100/52 95 15 0824 98.4 /15 0803 98.0 80 20 120/60 95 Room Air 14 2250 97.4 82 18 118/58 94 Room Air 14 2230 Room Air 14 2224 80 16 116/67 94 Room Air 14 2026 97.2 86 18 132/72 92 Room Air 05/24 1822 90 18 95 Room Air 05/24 1817 92 Room Air 05/24 1805 88 14 134/63 Room Air 05/24 1521 97.9 117 20 117/79 92 Room Air Laboratory Tests 06/09/ 0705: Anion Gap 5, Estimated GFR > 60, BUN/Creatinine Ratio 28.0 H, Calcium 8.2 L, Phosphorus 3.6, Magnesium 1.7, CBC w Diff NO MAN DIFF REQ, RBC 3.44 L, MCV 93.1 , MCH 31.6 H, RDW 14.5, MPV 7.8, Gran % 77.7 H, Lymphocytes % 10.1 L, Monocytes % 10.7 H, Eosinophils % 0.8, Basophils % 0.7, Absolute Granulocytes 7.5 H, Absolute Lymphocytes 1.0 L, Absolute Monocytes 1.0 H, Absolute Eosinophils 0.1, Absolute Basophils 0.1, PUBS MCHC 34.0 Microbiology Date/Time Procedure - Status Source Growth 06/06 1138 Blood Culture - RES BLOOD Orders Procedure Date/time Status URIC ACID 06/10 0600 Active PHOSPHORUS 06/10 0600 Active MAGNESIUM 06/10 0600 Active CALCIUM 06/10 0600 Active BASIC ELECTROLYTES PLUS BUN&CR 06/10 0600 Active Grant, Insertion/Removal/Asses 06/10 0229 Active CALCIUM 06/09 0705 Complete PHOSPHORUS 06/09 0600 Complete MAGNESIUM 06/09 0600 Complete CBC WITHOUT DIFFERENTIAL 06/09 0600 Complete BASIC ELECTROLYTES PLUS BUN&CR 06/09 0600 Complete Grant, Insertion/Removal/Asses 06/09 0206 Active Lab Add-on Test 06/09 UNK Active Nursing Misc 06/09 UNK Active CBC WITHOUT DIFFERENTIAL 06/08 1252 Complete Grant, Insertion/Removal/Asses 06/08 0831 Complete PHOSPHORUS 06/08 0600 Complete MAGNESIUM 06/08 0600 Complete BASIC ELECTROLYTES PLUS BUN&CR 06/08 0600 Complete Grant, Insertion/Removal/Asses 06/08 0302 Complete Patient Safety Monitor 06/07 2209 Complete Treatment of Swallowing 06/07 UNK Complete INCENTIVE SPIROMETRY TRX CHG 06/07 UNK Complete RT RE-EVALUATION 06/07 UNK Complete INCENTIVE SPIROMETRY TRX (GEN) 06/07 UNK Complete Therapeutic Activities 06/07 UNK Complete Therapeutic Exercise 06/07 UNK Complete Gait Training 06/07 UNK Complete MISSING MEDICATION FORM 06/07 UNK Active Disposition Summary Disposition Principal Diagnosis: Multiple Myeloma Additional Diagnosis: Aspiration PNA Failure to thrive and cachexia Discharge Disposition: hospice - medical facilit Discharge Instructions General Discharge Information Code Status: Hospice Patient's Diet: Jevity 1.2 via PEG tube Patient's Activity: As tolerated Follow-Up Instructions/Appts: none required Medications at Discharge Discharge Medications: Continue taking these medications: Tiotropium Eden (Spiriva) 18 MCG CAP.W.DEV 1 Puff Inhale through mouth DAILY Qty = 30 Budesonide/Formoterol Fumarate (Symbicort 160-4.5 Mcg Inhaler) 160 MCG-4.5 MCG/ ACTUATION HFA.AER.AD 2 Puff Inhale through mouth TWICE DAILY Qty = 102 Start taking the following new medications: Polyethylene Glycol 3350 (Miralax) 17 GRAM/DOSE POWDER 17 Gram ORAL DAILY as needed for CONSTIPATION Days = 28 No Refills Sennosides/Docusate Sodium (Senna Plus Tablet) 8.6 MG-50 MG TABLET 2 Tablet ORAL DAILY as needed for CONSTIPATION Days = 28 No Refills Lactose-Reduced Food/Fiber (Jevity 1.2 Familia Liquid) 0.06 GRAM-1.2 KCAL/ML LIQUID 0 PEG TUBE SEE INSTRUCTIONS Days = 30 No Refills Instructions: flush: 125 ml every 6 hours Goal rate: 52 ml/hr Copies To: ROSALIO GUTIERREZ,BEVERLEY Attending MD Review Statement Documenting Attending: JACOB LYN MD Copies To: CONCEPCION GUTIERREZ,JUANITO
--- NOTE | 2016-06-10 06:00 | NUR ---
ADVISED DATABASE MODELER #[id number] THAT PT GUERRA PUTTING OUT BLOOD TINGED URINE
[2016-06-10 08:17] VITALS: BP 120/64
--- NOTE | 2016-06-10 08:35 | PN- Housestaff ---
See Addendum Subjective Follow-up For: Multiple myeloma, deconditioning, failure to thrive Subjective: Seen and examined patient. Complaining of pain all over. Has not had a bowel in five days. Hematuria noted in zimmer this morning. Review of Systems Constitutional: Reports: see HPI. Objective Last 24 Hrs of Vital Signs/I&O Vital Signs Date Time Temp Pulse Resp B/P Pulse O2 O2 Flow FiO2 Ox Delivery Rate 06/10 0817 97.5 95 20 120/64 95 Room Air 06/09 2340 97.8 95 18 111/58 94 Room Air 06/09 1859 93 Room Air 06/09 1636 98.0 90 17 106/62 96 Room Air 06/09 1113 98.3 92 20 112/60 94 Room Air 06/09 0932 Room Air Room Air Intake & Output 06/10 1600 06/10 0800 06/10 0000 Intake Total 541 156 Output Total 900 Balance -359 156 Intake, Oral 0 0 Intake, 156 TPN/PPN Intake, Tube 416 Feeding Intake, Tube 125 Irrigant Output, Urine 900 Physical Exam General Appearance: Mild Distress Cardiovascular: Normal S1, Normal S2 Lungs: decreased BS Abdomen: Normal Bowel Sounds, Soft, peg tube in place Current Medications: Current Medications Sig/Dominique Start time Last Medication Dose Route Stop Time Status Admin Acetaminophen 650 MG Q6P PRN 05/24 2345 AC 06/06 PO 0845 Albuterol Sulfate 3 ML Q4P PRN 05/25 2200 AC 05/29 INH 1919 Bisacodyl 10 MG DAILY 06/10 1000 AC 06/10 TX 0904 Bisacodyl 10 MG DAILY PRN 06/03 1125 AC 06/04 TX 06/10 0959 1059 Famotidine 20 MG DAILY 06/03 1122 AC 06/10 PO 0904 Heparin Sodium 5,000 UNIT Q8 05/25 0600 AC 06/10 (Porcine) SC 0540 Lactobacillus 1 CAP BID 05/28 1027 AC 06/10 Acidophilus PO 0904 Magnesium Sulfate 1 GM Q2H 06/09 0900 DC 06/09 Dextrose/Water 100 ML IV 06/09 1259 1512 Phosphate 250 MG PC AND AT BEDTIME 06/05 1800 DC 06/09 PO 1357 Polyethylene Glycol 17 GM DAILY PRN 05/26 1330 AC PO Senna/Docusate Sodium 2 TAB DAILY 06/10 1000 AC 06/10 PO 0904 Senna/Docusate Sodium 2 TAB DAILY PRN 05/26 1330 AC PO 06/10 0959 Zinc Oxide 1 KARLEE BID 06/07 0830 AC 06/10 TOP 0903 Last 24 Hrs of Lab/Bert Results Last 24 Hrs of Labs/Mics: Laboratory Tests 06/10/16 0735: Anion Gap 6, Estimated GFR > 60, BUN/Creatinine Ratio 31.7 H, Uric Acid 3.3 L, Calcium 9.2, Phosphorus 4.2, Magnesium 1.9 Assessment/Plan Assessment: 85-year-old gentleman with PMH of BPH s/p TURP 2 current admission for generalized weakness for s/p bone biopsy and marrow aspirate Assessment and plan: ? Aspiration pneumonitis versus aspiration pneumonia afebrile overnight on Jevity 1.2 feeds at goal rate, tolerating it well Final Blood cultures from May 24 show no growth, prelim blood cultures from the show no growth, next x-ray shows decreased lung volumes more likely to be atelectasis, completed course of clindamycin and IV Unasyn and follow off antibiotics for now. However he could still be continuing to aspirate Given spirometry at bedside Bilateral feet pain X-rays show no acute abnormality or focal bone lesion, there is narrowing of the first MTP joint with small marginal spur multiple myeloma : -Heme/onc on board appreciate recommendations -Bone marrow biopsy results show hypercellular marrow composed of abnormal plasma cells Flow cytometry is consistent with plasma cell dyscrasia, CD28+ which is associated with less favorable prognosis calcuim pending Hypocalcemia/hypokalemia/hypomagnesmia/hypophos Calcium 9.2, potassium 5.4, magnesium 1.9, phosphorus 4.2 today Will repeat BEP at 2 PM today Discontinue Neutra-Phos Constipation Patient was not given his bowel regimen over the past 4 days Suppository to be given today Hematuria Will repeat H&H at 2 PM today and watch for worsening bleeding and clotting uro consult if needed Diet: NPO.tube feeds DVT prophylaxis: subcutaneous heparin and alps FULL CODE POA son ([phone]) Problem List: 1. Failure to thrive 2. Multiple myeloma 3. S/P percutaneous endoscopic gastrostomy (PEG) tube placement Pain Ratin Pain Location: Generalized Pain Goal: Pain 4 or less Pain Plan: Continue with Tylenol for now Tomorrow's Labs & Rationales: CBC BEP, mag, phosphorus Consulting Request: Consulting Specialty: Hematology/Oncology Consulting Physician: JUANITO JAVIER MD
--- NOTE | 2016-06-10 15:00 | NUR ---
NURSING NOTES: AFTER MULTIPLE ATTEMPTS PT REFUSING TO HAVE 2PM BLOODS DRAWN. RUTH NI #[id number] AWARE.
[2016-06-10 17:13] VITALS: BP 104/50
[2016-06-10 23:40] VITALS: BP 110/53
--- NOTE | 2016-06-11 00:22 | NUR ---
SENT TEXT TO ROOM CLERK #[id number] ADVISING PT GUERRA PUTTING OUT BRIGHT RED HEMATURIA.
[2016-06-11 08:18] LABS: ABSOLUTE BASOPHIL COUNT 0.2 /CUMM (0.0-0.2); ABSOLUTE EOSINOPHIL COUNT 0.1 /CUMM (0.0-0.7); ABSOLUTE GRANULOCYTE CT 9.1 /CUMM (1.4-6.5); BASOPHIL % 1.6 % (0.0-2.0); EOSINOPHIL % 0.5 % (0-5); GRANULOCYTE % 79.6 % (42.2-75.2); MEAN CORPUSCULAR HGB 31.8 PG (27.0-31.0); MEAN CORPUSCULAR HGB CONC 34.1 G/DL (33.0-37.0); MEAN PLATELET VOLUME 7.7 FL (7.4-10.4); PLATELET COUNT 603 /CUMM (130-400); RBC DISTRIBUTION WIDTH 14.5 % (11.5-14.5); RED BLOOD CELL CT 3.51 /CUMM (4.70-6.10); WHITE BLOOD CELL COUNT 11.5 /CUMM (4.8-10.8)
[2016-06-11 08:38] VITALS: BP 104/52
[2016-06-11 08:59] LABS: ABSOLUTE LYMPH COUNT 1.1 /CUMM (1.2-3.4); HEMATOCRIT 32.7 % (42-52); MEAN CORPUSCULAR VOLUME 93.1 FL (80.0-94.0)
--- NOTE | 2016-06-11 09:00 | NUR ---
NURSING NOTE: PT NOTED TO STILL HAVE HEMATURIA W/SEDIMENT. PT C/O DISCOMORT TO BLE. OFFERED TO ASSIT PT OOB TO CHAIR. PT REFUSING TO GET OOB AT PRESENT TIME BUT DID ALLOW FOR REPOSITIONING AT THIS TIME. MOUTH CARE GIVEN. MADELEINE NAZARIO #[id number] DAUGHERTY AWARE OF THE HEMATURIA AND REFUSAL TO GET OOB. WILL CONTINUE TO MONITOR.
--- NOTE | 2016-06-11 10:26 | PN- Hematology ---
Subjective Subjective: Mr. Nice is doing well. He does complain of pain in his legs and back. He has no fever or chills. He is tolerating and tube feeding. Review of Systems: Constitutional: Denies: chills, fever. Cardiovascular: Denies: chest pain. Gastrointestinal: Reports abdominal pain. Sacral pain. Neurological/Psychological: Reports: confusion. Musculoskeletal: Reports: leg pain All Other Systems: Reviewed and Negative Objective Vital Signs and I&Os Vital Signs Date Time Temp Pulse Resp B/P Pulse O2 O2 Flow FiO2 Ox Delivery Rate 06/11 0838 98.1 97 18 104/52 96 Room Air 06/10 2340 97.7 94 16 110/53 95 Room Air 06/10 2006 95 Room Air 06/10 1713 97.6 95 24 104/50 95 Room Air 06/10 1600 93 Room Air Room Air 06/10 1216 94 Room Air Intake & Output 06/11 1600 06/11 0800 06/11 0000 06/10 1600 06/10 0800 06/10 0000 Intake Total 181 541 541 156 Output Total 1300 550 850 900 Balance -1300 -369 -309 -359 156 Intake, Oral 0 0 0 0 Intake, 156 TPN/PPN Intake, Tube 156 416 416 Feeding Intake, Tube 25 125 125 Irrigant Number 1 Bowel Movements Output, Urine 1300 550 850 900 Physical Exam: General Appearance: alert, awake, cachetic, oriented to self, location, month, but not year Head: atraumatic Ears, Nose, Throat: dry mucosa, missing dentures. Respiratory: chest non-tender, no respiratory distress, crackles Cardiovascular: regular rate/rhythm Abdomen: normal bowel sounds, soft, tender to palpation in PEG insertion site, no organomegaly Extremities: Bilateral feet tender to palpation (below ankle). More on left. No erythema. Stable. 1+ edema in lower extremity in the ankle. Bilateral knee tenderness. Neurologic/Psychiatric: awake, oriented to self, but not month or year Skin: normal color Current Medications: Current Medications Sig/Dominique Start time Last Medication Dose Route Stop Time Status Admin Acetaminophen 650 MG .STK-MED ONE 06/10 1520 DC PO 06/10 1521 Acetaminophen 650 MG Q6P PRN 05/24 2345 AC 06/11 PO 0856 Albuterol Sulfate 3 ML Q4P PRN 05/25 2200 AC 05/29 INH 1919 Bisacodyl 10 MG DAILY 06/10 1000 AC 06/10 CA 0904 Famotidine 20 MG DAILY 06/03 1122 AC 06/11 PO 0856 Heparin Sodium 5,000 UNIT Q8 05/25 0600 AC 06/11 (Porcine) SC 0640 Lactobacillus 1 CAP BID 05/28 1027 AC 06/11 Acidophilus PO 0856 Polyethylene Glycol 17 GM DAILY PRN 05/26 1330 AC PO Senna/Docusate Sodium 2 TAB DAILY 06/10 1000 AC 06/11 PO 0856 Sodium Polystyrene 60 ML ONCE ONE 06/10 1530 DC 06/10 Sulfonate PO 06/10 1531 1604 Zinc Oxide 1 KARLEE BID 06/07 0830 AC 06/11 TOP 0940 Results Last 24 Hours of Lab Results: Laboratory Tests 06/11 06/10 0623 1400 Chemistry Sodium (137 - 145 mmol/L) 135 L Cancelled Potassium (3.5 - 5.1 mmol/L) 4.9 Cancelled Chloride (98 - 107 mmol/L) 97 L Cancelled Carbon Dioxide (22 - 30 mmol/L) 30 Cancelled Anion Gap (5 - 16) 8 Cancelled BUN (9 - 20 mg/dL) 24 H Cancelled Creatinine (0.7 - 1.2 mg/dL) 0.6 L Cancelled Estimated GFR (>60 ml/min) > 60 BUN/Creatinine Ratio (7 - 25 %) 40.0 H Cancelled Phosphorus (2.5 - 4.5 mg/dL) 3.7 Magnesium (1.6 - 2.3 mg/dL) 1.8 Coagulation PT Cancelled INR Cancelled Hematology CBC w Diff NO MAN DIFF REQ Cancelled WBC (4.8 - 10.8 /CUMM) 11.5 H Cancelled RBC (4.70 - 6.10 /CUMM) 3.51 L Cancelled Hgb (14.0 - 18.0 G/DL) 11.1 L Cancelled Hct (42 - 52 %) 32.7 L Cancelled MCV (80.0 - 94.0 FL) 93.1 Cancelled MCH (27.0 - 31.0 PG) 31.8 H Cancelled RDW (11.5 - 14.5 %) 14.5 Cancelled Plt Count (130 - 400 /CUMM) 603 H Cancelled MPV (7.4 - 10.4 FL) 7.7 Cancelled Gran % (42.2 - 75.2 %) 79.6 H Lymphocytes % (20.5 - 51.1 %) 9.3 L Monocytes % (1.7 - 9.3 %) 9.0 Eosinophils % (0 - 5 %) 0.5 Basophils % (0.0 - 2.0 %) 1.6 Absolute Granulocytes (1.4 - 6.5 /CUMM) 9.1 H Absolute Lymphocytes (1.2 - 3.4 /CUMM) 1.1 L Absolute Monocytes (0.10 - 0.60 /CUMM) 1.0 H Absolute Eosinophils (0.0 - 0.7 /CUMM) 0.1 Absolute Basophils (0.0 - 0.2 /CUMM) 0.2 PUBS MCHC (33.0 - 37.0 G/DL) 34.1 Cancelled Recent Imaging Studies: CT Abd/pelvis 06/09/2016 1. PEG tube tip appears to lie within the stomach, though assessment is suboptimal in the setting of patient motion artifact. A tiny focus of free air is suspected in the anterior abdomen near the PEG tube, which may be postprocedural in nature if the tube has been recently placed. 2. Partially visualized small left pleural effusion with adjacent dependent opacity favoring atelectasis. 3. Large amount of stool in the rectum. Moderate to large amount of stool in the remainder of the colon. 4. Enlarged prostate gland. 5. Multiple lytic osseous lesions, likely representing either myeloma or metastatic disease. Soft tissue mass noted in the L2 spinous process. 6. Right renal calculi, without hydronephrosis. Assessment/Plan Assessment/Recommendations: Mr. Nice is an 85-year-old with history of BPH s/p TURB who presents with significant weakness, weight loss, and decondition. He is cachetic on examination. He has still able to drive up until last week. On admission, he was noted to have hypercalcemia (13.9) and protein gap (total protein at 11.2, albumin at 3.9). His creatinine and hemoglobin are normal. CT imaging noted lytic bone lesions. Bone marrow was done by IR and pathology demonstrated plasma cell neoplasm. Flow cytometry demonstrated plasma cell dyscrasia. Beta-2 -microglobulin elevated at 5.47. IgG elevate at 3026. Immunofixation positive for IgG kappa. He is diagnosed with ISS stage III myeloma IgG kappa. He is tolerating tube feeding. Performance status has not improved much. ECOG PS of 3 currently. He has been refusing physical therapy. He is still at risk for aspiration with oral intake. His age and frail condition make aggressive options limited. Blood work is reviewed and noted increasing thrombocytosis. This is likely reactive. He will need to be monitored closely for infectious process. Underlying inflammatory process is not ruled out. Bone marrow biopsy done recently and does not suggest an underlying malignant process other than plasma cell neoplasm. Recommendations: 1. Follow up as outpatient to discuss therapy likely melphalan/prednisone 2. Continue PT and STR 3. Monitor closely for infectious complication 4. Consider ESR/CRP Please call [phone] with any questions or concerns. Problem List: 1. Hypocalcemia 2. Lytic bone lesions on xray 3. Multiple myeloma 4. Failure to thrive
--- NOTE | 2016-06-11 11:35 | PN- Att Addend ---
Attending Addendum Attending Brief Note 85 year old gentleman with past medical history significant for BPH status post TURP, failure to thrive, weight loss was admitted to the floor for hypercalcemia and failure to thrive, and workup shows plasma cell neoplasm by bone marrow biopsy.He was seen and examined on the bedside this morning and feels lethargic, weak and unable to communicate. His hypercalcemia was treated with IV bisphosphonates hydration. He is a potential candidate for aspiration pneumonia given his status post PEG tube. Hematology/oncology is on board and would consider chemotherapy if patient's clinical status improves. Patient is a full code and family members expectations are still high. He afebrile with no elevated white count so being kept off of antibiotics at the moment. We'll continue to monitor and continue to communicate with the family as the patient's prognosis are guarded.
--- NOTE | 2016-06-11 14:05 | PN- Housestaff ---
Subjective Follow-up For: MULTIPLE MYELOMA FTT HYEPRCALCEMIA Subjective: Saw patient at bedside this a.m. He looks very cachectic and is in severe pain anytime he is moving in bed. He has TPN running at bedside. Denies any pain in his lower extremities when he is not moved. I changed his Tylenol from when necessary to scheduled. He does have andreas hematuria this AM. It was noted yesterday, however her signout it was clearing but this a.m. he continues to look dark red in color. He had about 300 mL of fluid and Grant bag. There is also heavy sediment noted in his urine. It is H&H is currently stable this AM. Patient refuses lab draws more than once a day. I have ordered type and crossmatch and INR, along with ESR, CRP and CBC for tomorrow AM Review of Systems Constitutional: Reports: no symptoms. Cardiovascular: Denies: chest pain, palpitations. Respiratory: Denies: short of breath. Gastrointestinal: Reports: no symptoms. Genitourinary: Reports: no symptoms, hematuria. Musculoskeletal: Reports: no symptoms. Skin: Reports: no symptoms. Objective Last 24 Hrs of Vital Signs/I&O Vital Signs Date Time Temp Pulse Resp B/P Pulse O2 O2 Flow FiO2 Ox Delivery Rate 06/11 1047 94 Room Air 06/11 0838 98.1 97 18 104/52 96 Room Air 06/10 2340 97.7 94 16 110/53 95 Room Air 06/10 2006 95 Room Air 06/10 1713 97.6 95 24 104/50 95 Room Air 06/10 1600 93 Room Air Room Air Intake & Output 06/11 1600 06/11 0800 06/11 0000 Intake Total 181 Output Total 1300 550 Balance -1300 -369 Intake, Oral 0 Intake, Tube 156 Feeding Intake, Tube 25 Irrigant Output, Urine 1300 550 Physical Exam General Appearance: Alert, Oriented X3, Cooperative, No Acute Distress Skin: No Rashes, No Breakdown, No Significant Lesion HEENT: Atraumatic, PERRLA, EOMI Neck: Supple Cardiovascular: Regular Rate, Normal S1, Normal S2 Lungs: DECREASED MOVEMENT OF AIR BILAT Abdomen: No Tenderness Neurological: Sensation Intact Current Medications: Current Medications Sig/Dominique Start time Last Medication Dose Route Stop Time Status Admin Acetaminophen 650 MG Q6 PRN 06/11 1800 AC PO Acetaminophen 650 MG .STK-MED ONE 06/10 1520 DC PO 06/10 1521 Acetaminophen 650 MG Q6P PRN 05/24 2345 DC 06/11 PO 0856 Albuterol Sulfate 3 ML Q4P PRN 05/25 2200 DC 05/29 INH 1919 Bisacodyl 10 MG DAILY 06/10 1000 AC 06/10 MT 0904 Famotidine 20 MG DAILY 06/03 1122 AC 06/11 PO 0856 Heparin Sodium 5,000 UNIT Q8 05/25 0600 AC 06/11 (Porcine) SC 0640 Lactobacillus 1 CAP BID 05/28 1027 AC 06/11 Acidophilus PO 0856 Polyethylene Glycol 17 GM DAILY PRN 05/26 1330 AC PO Senna/Docusate Sodium 2 TAB DAILY 06/10 1000 AC 06/11 PO 0856 Sodium Polystyrene 60 ML ONCE ONE 06/10 1530 DC 06/10 Sulfonate PO 06/10 1531 1604 Zinc Oxide 1 KARLEE BID 06/07 0830 AC 06/11 TOP 0940 Last 24 Hrs of Lab/Bert Results Last 24 Hrs of Labs/Mics: Laboratory Tests 06/11/16 0623: Anion Gap 8, Estimated GFR > 60, BUN/Creatinine Ratio 40.0 H, Phosphorus 3.7, Magnesium 1.8, CBC w Diff NO MAN DIFF REQ, RBC 3.51 L, MCV 93.1, MCH 31.8 H, RDW 14.5, MPV 7.7, Gran % 79.6 H, Lymphocytes % 9.3 L, Monocytes % 9.0, Eosinophils % 0.5, Basophils % 1.6, Absolute Granulocytes 9.1 H, Absolute Lymphocytes 1.1 L, Absolute Monocytes 1.0 H, Absolute Eosinophils 0.1, Absolute Basophils 0.2, PUBS MCHC 34.1 Assessment/Plan Assessment: 85-year-old gentleman with PMH of BPH s/p TURP 2 current admission for generalized weakness for s/p bone biopsy and marrow aspirate plan Hematuria:This a.m. he had about 300 mL of dark red urine with clots and heavy sediment in Grant bag. His H&H is stable at 11.1. Patient has Grant in. Unsure of etiology of hematuria. Patient denies any tenderness, burning, pain, and no suprapubic tenderness on physical exam. Patient is not on aspirin, he is on heparin 5000 units every 8 for DVT prophylaxis. We will consider stopping chemical DVT prophylaxis and starting him on mechanical if his hematuria continues to remain unresolved. * Continue to monitor with CBC and BEP * Consider urology consult if hematuria continues to worsen or if his H&H drops. ? Aspiration pneumonitis versus aspiration pneumonia: Patient was afebrile overnight. His respiratory status remains stable today. on Jevity 1.2 feeds at goal rate, tolerating it well Final Blood cultures from May 24 show no growth, prelim blood cultures from the show no growth, next x-ray shows decreased lung volumes more likely to be atelectasis, completed course of clindamycin and IV Unasyn and follow off antibiotics for now. However he could still be continuing to aspirate Given spirometry at bedside Bilateral feet pain X-rays show no acute abnormality or focal bone lesion, there is narrowing of the first MTP joint with small marginal spur. Patient has multiple myeloma, likely this is secondary to his disease process. * Pain management multiple myeloma : -Heme/onc on board appreciate recommendations -Bone marrow biopsy results show hypercellular marrow composed of abnormal plasma cells Flow cytometry is consistent with plasma cell dyscrasia, CD28+ which is associated with less favorable prognosis calcuim pending * ESR, CBC, BEP in the a.m. Hypocalcemia/hypokalemia/hypomagnesmia/hypophos * Discontinue Neutra-Phos * Continue to monitor Constipation: Patient was not given his bowel regimen over the past 4 days Diet: NPO.tube feeds DVT prophylaxis: subcutaneous heparin and alps FULL CODE POA son ([phone]) Problem List: 1. Hypercalcemia 2. Failure to thrive Pain Ratin Pain Location: none Pain Goal: Remain pain free Pain Plan: none Tomorrow's Labs & Rationales: none DVT/Prophylaxis: mechanical Consulting Request: Consulting Specialty: Hematology/Oncology Consulting Physician: JUANITO JAVIER MD
[2016-06-11 15:56] VITALS: BP 126/70
--- NOTE | 2016-06-11 16:30 | NUR ---
NURSING NOTE: AGAIN ATTEMPTED TO GET PT OOB TO CHAIR. PT CONTINUES TO REFUSE.
--- NOTE | 2016-06-11 23:33 | NUR ---
NURSING NOTE: PT SUDDENLY BECAME VERY AGITATED. PT ATTEMPTING TO GET OOB. PT SCREAMING AT THIS RN THAT "HE WILL KILL ME IF I GO NEAR HIS FAMILY". REASSURED PT THIS RN WILL NOT. PT BEGAN BANGING HIS CALLBELL ON THE TRAY TABLE AND YELLING OUT "I NEED TO LEAVE". SPOKE WITH INSTRUMENT MAKER #[id number] AND CONFIRMED GIVING PT SEROQUEL 6.[address] SHEPARD. BED IN LOWEST POSITION. WILL CONTINUE TO MONITOR.
[2016-06-11 23:53] VITALS: BP 116/61
--- NOTE | 2016-06-12 04:55 | NUR ---
NURSING NOTE: PT STILL MAKING ATTEMPTS TO GET OOB. BED ALARM CONSTANTLY GOING OFF. PT WAS INCONTINENT TO URINE. A FULL BED CHANGE AND BATH WAS GIVEN TO PT. BED ALARM IN POSITION, BED GATCHED & IN LOWEST POSITION. PT CALL MCCANN WITHIN REACH. WILL CONTINUE TO MONITOR.
--- NOTE | 2016-06-12 05:01 | NUR ---
LATE ENTRY KAILEY NOTE: 6730 - PT WAS VERY AGITATED AND MAKING ATTEMPTS TO GET OOB. BED ALARM ABDI VARGHESE. PT WAS SCREAMING AT THIS RN THAT "HE WILL KILL ME IF I GO NEAR HIS FAMILY. PT WAS ALSO BANGIGN HIS CALLBELL ON THE TRAY TABLE. CALLED AND ADVISED CONCRETE HOPPER OPERATOR #[id number]. CONCRETE HOPPER OPERATOR #[id number] CONFIRMED IT IS OKAY TO ADMINISTER SEROQUEL 6.25MG ORDERED EARLIER. PT REPOSITIONED IN BED. ATTEMPT TO ADMINISTER MED WAS UNSUCCESSFUL. PT WILL NOT TAKE. PT ALSO REFUSED ANY SNACKS OR A DRINKS. BED IN LOWEST POSITION. BED ALARM ON. WILL CONTINUE TO MONITOR.
--- NOTE | 2016-06-12 05:03 | NUR ---
LATE ENTRY NURSING NOTE: 0445: PT STILL MAKING ATTEMPTS TO GET OOB. BED ALARM REPEATEDLY GOING OFF. PT WAS COMPLETELY INCONTINENT OF URINE AND REQUIRED A FULL BED CHANGE AND BATH. REPOSITIONED PT IN BED. BED GATCHED, BED ALARM IN PLACCE. BED IN LOWEST POSITION AND CALLBELL WITHIN REACH. WILL CONTINUE TO MONITOR.
--- NOTE | 2016-06-12 08:00 | NUR ---
NURSING NOTE: PT REFUSING TO GET OOB W/NURSING. PT BECOMING AGITATED WHEN ASKED TO GET TO CHAIR. WILL CONTINUE TO ATTEMPTS AGAIN LATER IN THE DAY.
[2016-06-12 08:09] LABS: ABSOLUTE BASOPHIL COUNT 0.1 /CUMM (0.0-0.2); ABSOLUTE EOSINOPHIL COUNT 0.1 /CUMM (0.0-0.7); ABSOLUTE GRANULOCYTE CT 10.4 /CUMM (1.4-6.5); ABSOLUTE MONOCYTE COUNT 1.2 /CUMM (0.10-0.60); BASOPHIL % 0.6 % (0.0-2.0); EOSINOPHIL % 0.6 % (0-5); GRANULOCYTE % 82.1 % (42.2-75.2); HEMATOCRIT 35.2 % (42-52); MEAN CORPUSCULAR HGB 31.2 PG (27.0-31.0); MEAN CORPUSCULAR HGB CONC 33.5 G/DL (33.0-37.0); MEAN CORPUSCULAR VOLUME 93.1 FL (80.0-94.0); MEAN PLATELET VOLUME 7.5 FL (7.4-10.4); PLATELET COUNT 570 /CUMM (130-400); RBC DISTRIBUTION WIDTH 14.5 % (11.5-14.5); RED BLOOD CELL CT 3.78 /CUMM (4.70-6.10); WHITE BLOOD CELL COUNT 12.6 /CUMM (4.8-10.8)
[2016-06-12 08:15] VITALS: BP 92/56
[2016-06-12 08:34] LABS: PT 14.8 SEC (9.4-12.5)
--- NOTE | 2016-06-12 09:22 | PN- Housestaff ---
ISABELLE ANG 06/12/16 0922: Subjective Follow-up For: Multiple myeloma angi nam Subjective: Seen and examined the patient. Patient is in pain over his body. Patient is sleepy and lethargic.. Review of Systems Constitutional: Reports: see HPI. Objective Last 24 Hrs of Vital Signs/I&O Vital Signs Date Time Temp Pulse Resp B/P Pulse O2 O2 Flow FiO2 Ox Delivery Rate 06/12 1036 95 Room Air 06/12 0815 98.3 98 20 92/56 95 06/11 2353 97.6 98 20 116/61 93 Room Air 06/11 1850 93 Room Air 06/11 1556 98.2 95 20 126/70 94 Intake & Output 06/12 1600 06/12 0800 06/12 0000 Intake Total 641 Output Total 525 650 Balance 116 -650 Intake, IV 100 Intake, Oral 0 Intake, Tube 416 Feeding Intake, Tube 125 Irrigant Output, Urine 525 650 Physical Exam General Appearance: Moderate Distress, drowsy Current Medications: Current Medications Sig/Dominique Start time Last Medication Dose Route Stop Time Status Admin Acetaminophen 1,000 MG ONCE ONE 06/11 2130 DC 06/11 N/A 1 UNIT IV 06/11 2144 2141 Acetaminophen 650 MG Q6 PRN 06/11 1800 AC 06/12 PO 0922 Acetaminophen 650 MG Q6P PRN 05/24 2345 DC 06/11 PO 0856 Albuterol Sulfate 3 ML Q4P PRN 05/25 2200 DC 05/29 INH 1919 Bisacodyl 10 MG DAILY 06/10 1000 AC 06/10 MO 0904 Famotidine 20 MG DAILY 06/03 1122 AC 06/12 PO 0915 Heparin Sodium 5,000 UNIT Q8 05/25 0600 DC 06/11 (Porcine) SC 1420 Lactobacillus 1 CAP BID 05/28 1027 AC 06/12 Acidophilus PO 0915 Polyethylene Glycol 17 GM DAILY PRN 05/26 1330 AC PO Senna/Docusate Sodium 2 TAB DAILY 06/10 1000 AC 06/12 PO 0915 Zinc Oxide 1 KARLEE BID 06/07 0830 AC 06/12 TOP 0916 Assessment/Plan Assessment: 85-year-old gentleman with PMH of BPH s/p TURP 2 current admission for generalized weakness for s/p bone biopsy and marrow aspirate plan Hematuria:he had about 300 mL of dark red urine with clots and heavy sediment in Grant bag. His H&H is stable at 11.1. Patient has Grant in. Unsure of etiology of hematuria. Patient denies any tenderness, burning, pain, and no suprapubic tenderness on physical exam. Patient is not on aspirin, he is on heparin 5000 units every 8 for DVT prophylaxis. We will consider stopping chemical DVT prophylaxis and starting him on mechanical if his hematuria continues to remain unresolved. * Continue to monitor with CBC and BEP * Consider urology consult if hematuria continues to worsen or if his H&H drops. ? Aspiration pneumonitis versus aspiration pneumonia: aferbirile on Jevity 1.2 feeds at goal rate, tolerating it well Final Blood cultures from May 24 show no growth, prelim blood cultures from the show no growth, next x-ray shows decreased lung volumes more likely to be atelectasis, completed course of clindamycin and IV Unasyn and follow off antibiotics for now. However he could still be continuing to aspirate Given spirometry at bedside Bilateral feet pain X-rays show no acute abnormality or focal bone lesion, there is narrowing of the first MTP joint with small marginal spur. Patient has multiple myeloma, likely this is secondary to his disease process. * Pain management multiple myeloma : -Heme/onc on board appreciate recommendations -Bone marrow biopsy results show hypercellular marrow composed of abnormal plasma cells Flow cytometry is consistent with plasma cell dyscrasia, CD28+ which is associated with less favorable prognosis calcuim pending * ESR in 125 * Overall patient is status is not improving and goals of care should be addressed Hypocalcemia/hypokalemia/hypomagnesmia/hypophos * Discontinue Neutra-Phos * Continue to monitor Constipation: Patient was not given his bowel regimen over the past 4 days Diet: NPO.tube feeds DVT prophylaxis: subcutaneous heparin and alps FULL CODE POA son ([phone]) Problem List: 1. Failure to thrive 2. Multiple myeloma Pain Ratin Pain Location: all voer Pain Goal: Pain 4 or less Pain Plan: same Tomorrow's Labs & Rationales: CBC BEP Consulting Request: Consulting Specialty: Hematology/Oncology Consulting Physician: JUANITO NI MD,[facility] 06/12/16 1215: Attending MD Review Statement Attending Statement Attending MD Statement: examined this patient, discuss w/resident/PA/HOTEL ADMINISTRATIVE ASSISTANT, agreed w/resident/PA/HOTEL ADMINISTRATIVE ASSISTANT, reviewed EMR data (avail), discussed with nursing, reviewed images Attending Assessment/Plan: 85 year old gentleman with past medical history significant for BPH status post TURP, failure to thrive, weight loss was admitted to the floor for hypercalcemia and failure to thrive, and workup shows plasma cell neoplasm by bone marrow biopsy.He was seen and examined on the bedside this morning and feels lethargic, weak and unable to communicate. His hypercalcemia was treated with IV bisphosphonates hydration. He is a potential candidate for aspiration pneumonia given his status post PEG tube. Hematology/oncology is on board and would consider chemotherapy if patient's clinical status improves. Patient is a full code and family members expectations are still high. He is afebrile with no elevated white count so being kept off of antibiotics at the moment. We'll continue to monitor and continue to communicate with the family as the patient's prognosis are guarded. Given his hypercoagulable state from underlying malignancy he was on heparin which was then discontinued yesterday after discussing it with the switchboard operator. Looking at the patient's frail condition and his rapid decline in in his general medical condition, he will be a candidate for comfort care/hospice.
--- NOTE | 2016-06-12 10:00 | NUR ---
NURSING NOTE: PT UNABLE TO CLEAR HIS SECREATIONS. MOUTH CARE GIVEN. RESP AT BEDSIDE FOR DEEP SUCTIONING. PT STILL CONTINUES TO REFUSE TO GET OOB TO CHAIR. REPOSITIONED IN BED. WILL CONTINUE TO MONITOR.
[2016-06-12 11:39] VITALS: BP 100/58
[2016-06-12 16:45] VITALS: BP 114/72
[2016-06-12 23:29] VITALS: BP 110/70
--- NOTE | 2016-06-13 08:20 | PN- Housestaff ---
GRABIELJAMEEHesham 06/13/16 0819: Subjective Follow-up For: Multiple myeloma, deconditioning, failure to thrive Complaints: pt unable to provide hx Subjective: seen and examined patient, not providing ROS today. Review of Systems Constitutional: Reports: see HPI. Objective Last 24 Hrs of Vital Signs/I&O Vital Signs Date Time Temp Pulse Resp B/P Pulse O2 O2 Flow FiO2 Ox Delivery Rate 06/13 0821 99.1 103 20 122/60 93 Room Air 06/12 2329 97.6 98 20 110/70 93 06/12 1911 92 Room Air 06/12 1645 97.4 100 19 114/72 93 Room Air 06/12 1600 93 Room Air Room Air 06/12 1139 100/58 06/12 1036 95 Room Air Intake & Output 06/13 1600 06/13 0800 06/13 0000 Intake Total 416 Output Total 250 600 Balance 166 -600 Intake, Oral 0 Intake, Tube 416 Feeding Output, Urine 250 600 Physical Exam General Appearance: awake Cardiovascular: Normal S1, Normal S2 Abdomen: Soft Extremities: No Edema Current Medications: Current Medications Sig/Dominique Start time Last Medication Dose Route Stop Time Status Admin Acetaminophen 650 MG .STK-MED ONE 06/12 1509 DC PO 06/12 1510 Acetaminophen 650 MG Q6 PRN 06/11 1800 AC 06/12 PO 1609 Bisacodyl 10 MG DAILY 06/10 1000 AC 06/10 [place] 0904 Famotidine 20 MG DAILY 06/03 1122 AC 06/13 PO 0900 Lactobacillus 1 CAP BID 05/28 1027 AC 06/13 Acidophilus PO 0900 Patient Medication 1 ED ONE ONE 06/12 1345 DC Teaching ED 06/12 1346 Polyethylene Glycol 17 GM DAILY PRN 05/26 1330 AC PO Senna/Docusate Sodium 2 TAB DAILY 06/10 1000 AC 06/13 PO 0900 Sodium Polystyrene 120 ML ONCE ONE 06/12 1530 DC 06/12 Sulfonate PO 06/12 1531 1657 Zinc Oxide 1 KARLEE BID 06/07 0830 AC 06/13 TOP 0901 Last 24 Hrs of Lab/Bert Results Last 24 Hrs of Labs/Mics: Laboratory Tests 06/13/16 0805: Anion Gap 9, Estimated GFR > 60, BUN/Creatinine Ratio 60.0 H, CBC w Diff NO MAN DIFF REQ, RBC 3.69 L, MCV 93.4, MCH 31.4 H, RDW 14.4, MPV 7.8, Gran % 88.9 H, Lymphocytes % 4.9 L, Monocytes % 5.9, Eosinophils % 0, Basophils % 0.3, Absolute Granulocytes 11.6 H, Absolute Lymphocytes 0.6 L, Absolute Monocytes 0.8 H, Absolute Eosinophils 0, Absolute Basophils 0, PUBS MCHC 33.6 Assessment/Plan Assessment: 85-year-old gentleman with PMH of BPH s/p TURP 2 current admission for generalized weakness for s/p bone biopsy and marrow aspirate plan Failure to thrive per PT pt only works 3x/week and assist of two and just gets from bed to chair. Had family meeting with son (POA), and family friend. Updated them on patient's poor prognosis. Agreed to change patient's code status to DNR/DNI. They are willing to explore the option for palliative care. Hematuria: continues to have dark red urine no clots and heavy sedimentseen Grant bag. H&H is stable at 11.1. * Continue to monitor with CBC and BEP * will obtain KUB ? Aspiration pneumonitis versus aspiration pneumonia: on Jevity 1.2 feeds at goal rate, tolerating it well Final Blood cultures from May 24 show no growth, prelim blood cultures from the show no growth, next x-ray shows decreased lung volumes more likely to be atelectasis, completed course of clindamycin and IV Unasyn, continue to follow off antibiotics for now. However he could still be continuing to aspirate spirometry at bedside Bilateral feet pain X-rays show no acute abnormality or focal bone lesion, there is narrowing of the first MTP joint with small marginal spur. Patient has multiple myeloma, likely this is secondary to his disease process. continue Pain management with IV tylenolol multiple myeloma : -Heme/onc on board appreciate recommendations -Bone marrow biopsy results show hypercellular marrow composed of abnormal plasma cells Flow cytometry is consistent with plasma cell dyscrasia, CD28+ which is associated with less favorable prognosis calcuim pending * ESR in 125 Hypocalcemia/hypokalemia/hypomagnesmia/hypophos * Discontinued Neutra-Phos * Continue to monitor * will consult with nutrition to see if any changes need to be to tube feeds. Diet: NPO.tube feeds DVT prophylaxis: subcutaneous heparin and alps DNR/DNI POA son ([phone]) Problem List: 1. Weakness 2. Hypercalcemia 3. Failure to thrive 4. Multiple myeloma 5. S/P percutaneous endoscopic gastrostomy (PEG) tube placement Pain Ratin Pain Location: generalized Pain Goal: Pain 4 or less Pain Plan: current regimen Tomorrow's Labs & Rationales: none required Consulting Request: Consulting Specialty: Hematology/Oncology Consulting Physician: JUANITO LYN MD,JACOB 06/13/16 1623: Attending MD Review Statement Attending Statement Attending MD Statement: examined this patient, discuss w/resident/PA/[employer]ONT SERVICES AGENT, agreed w/resident/PA/[employer] SERVICES AGENT, reviewed EMR data (avail) Attending Assessment/Plan: Agree with resident assessment and plan. Chronic aspiration, aspiration pneumonia, multiple myeloma with poor functional status and poor prognosis. After discussion, patient is now DNR/DNI. Will have hospice evaluation for patient. Family in agreement. Will contineu discussions and continue current management.
[2016-06-13 08:21] VITALS: BP 122/60
[2016-06-13 09:21] LABS: ABSOLUTE BASOPHIL COUNT 0 /CUMM (0.0-0.2); ABSOLUTE EOSINOPHIL COUNT 0 /CUMM (0.0-0.7); ABSOLUTE GRANULOCYTE CT 11.6 /CUMM (1.4-6.5); ABSOLUTE LYMPH COUNT 0.6 /CUMM (1.2-3.4); ABSOLUTE MONOCYTE COUNT 0.8 /CUMM (0.10-0.60); BASOPHIL % 0.3 % (0.0-2.0); EOSINOPHIL % 0 % (0-5); GRANULOCYTE % 88.9 % (42.2-75.2); HEMATOCRIT 34.5 % (42-52); MEAN CORPUSCULAR HGB 31.4 PG (27.0-31.0); MEAN CORPUSCULAR HGB CONC 33.6 G/DL (33.0-37.0); MEAN CORPUSCULAR VOLUME 93.4 FL (80.0-94.0); MEAN PLATELET VOLUME 7.8 FL (7.4-10.4); PLATELET COUNT 593 /CUMM (130-400); RBC DISTRIBUTION WIDTH 14.4 % (11.5-14.5); RED BLOOD CELL CT 3.69 /CUMM (4.70-6.10)
[2016-06-13 10:05] LABS: WHITE BLOOD CELL COUNT 13.1 /CUMM (4.8-10.8)
--- NOTE | 2016-06-13 11:28 | PN- Hematology ---
Subjective Subjective: He is more disoriented today. He has no fever or chills. He does have pain all over his body still. Review of Systems: Unable to be obtained due to mental status. Objective Vital Signs and I&Os Vital Signs Date Time Temp Pulse Resp B/P Pulse O2 O2 Flow FiO2 Ox Delivery Rate 06/13 0821 99.1 103 20 122/60 93 Room Air 06/12 2329 97.6 98 20 110/70 93 06/12 1911 92 Room Air 06/12 1645 97.4 100 19 114/72 93 Room Air 06/12 1600 93 Room Air Room Air 06/12 1139 100/58 Intake & Output 06/13 1600 06/13 0800 06/13 0000 06/12 1600 06/12 0800 06/12 0000 Intake Total 416 541 641 Output Total 250 600 425 525 650 Balance 166 -600 116 116 -650 Intake, IV 100 Intake, Oral 0 0 Intake, Tube 416 416 416 Feeding Intake, Tube 125 125 Irrigant Number 2 Bowel Movements Output, Urine 250 600 425 525 650 Physical Exam: General Appearance: alert, awake, cachetic, disoriented Head: atraumatic Ears, Nose, Throat: dry mucosa, missing dentures. Respiratory: chest non-tender, no respiratory distress, crackles Cardiovascular: regular rate/rhythm Abdomen: normal bowel sounds, soft, tender to palpation in PEG insertion site, no organomegaly Extremities: Bilateral feet tender to palpation (below ankle). More on left. No erythema. Stable. 1+ edema in lower extremity in the ankle. Bilateral knee tenderness. Neurologic/Psychiatric: awake, disoriented. Skin: normal color Current Medications: Current Medications Sig/Dominique Start time Last Medication Dose Route Stop Time Status Admin Acetaminophen 650 MG .STK-MED ONE 06/12 1509 DC PO 06/12 1510 Acetaminophen 650 MG Q6 PRN 06/11 1800 AC 06/12 PO 1609 Bisacodyl 10 MG DAILY 06/10 1000 AC 06/10 [place] 0904 Famotidine 20 MG DAILY 06/03 1122 AC 06/13 PO 0900 Lactobacillus 1 CAP BID 05/28 1027 AC 06/13 Acidophilus PO 0900 Patient Medication 1 ED ONE ONE 06/12 1345 DC Teaching ED 06/12 1346 Polyethylene Glycol 17 GM DAILY PRN 05/26 1330 AC PO Senna/Docusate Sodium 2 TAB DAILY 06/10 1000 AC 06/13 PO 0900 Sodium Polystyrene 120 ML ONCE ONE 06/12 1530 DC 06/12 Sulfonate PO 06/12 1531 1657 Zinc Oxide 1 KARLEE BID 06/07 08 AC 06/13 TOP 0901 Results Last 24 Hours of Lab Results: Laboratory Tests 06/13 0805 Chemistry Sodium (137 - 145 mmol/L) 144 Potassium (3.5 - 5.1 mmol/L) 4.4 Chloride (98 - 107 mmol/L) 101 Carbon Dioxide (22 - 30 mmol/L) 35 H Anion Gap (5 - 16) 9 BUN (9 - 20 mg/dL) 36 H Creatinine (0.7 - 1.2 mg/dL) 0.6 L Estimated GFR (>60 ml/min) > 60 BUN/Creatinine Ratio (7 - 25 %) 60.0 H Calcium (8.4 - 10.2 mg/dL) 11.7 H Hematology CBC w Diff NO MAN DIFF REQ WBC (4.8 - 10.8 /CUMM) 13.1 H RBC (4.70 - 6.10 /CUMM) 3.69 L Hgb (14.0 - 18.0 G/DL) 11.6 L Hct (42 - 52 %) 34.5 L MCV (80.0 - 94.0 FL) 93.4 MCH (27.0 - 31.0 PG) 31.4 H RDW (11.5 - 14.5 %) 14.4 Plt Count (130 - 400 /CUMM) 593 H MPV (7.4 - 10.4 FL) 7.8 Gran % (42.2 - 75.2 %) 88.9 H Lymphocytes % (20.5 - 51.1 %) 4.9 L Monocytes % (1.7 - 9.3 %) 5.9 Eosinophils % (0 - 5 %) 0 Basophils % (0.0 - 2.0 %) 0.3 Absolute Granulocytes (1.4 - 6.5 /CUMM) 11.6 H Absolute Lymphocytes (1.2 - 3.4 /CUMM) 0.6 L Absolute Monocytes (0.10 - 0.60 /CUMM) 0.8 H Absolute Eosinophils (0.0 - 0.7 /CUMM) 0 Absolute Basophils (0.0 - 0.2 /CUMM) 0 PUBS MCHC (33.0 - 37.0 G/DL) 33.6 Assessment/Plan Assessment/Recommendations: Mr. Nice is an 85-year-old with history of BPH s/p TURB who presents with significant weakness, weight loss, and decondition. He is cachetic on examination. He has still able to drive up until last week. On admission, he was noted to have hypercalcemia (13.9) and protein gap (total protein at 11.2, albumin at 3.9). His creatinine and hemoglobin are normal. CT imaging noted lytic bone lesions. Bone marrow was done by IR and pathology demonstrated plasma cell neoplasm. Flow cytometry demonstrated plasma cell dyscrasia. Beta-2 -microglobulin elevated at 5.47. IgG elevate at 3026. Immunofixation positive for IgG kappa. He is diagnosed with ISS stage III myeloma IgG kappa. He is more disoriented today. His WBC is trending upward. Given his aspiration risk, this is concerning for possible infectious etiology. His ESR and CRP are elevated which suggest an inflammatory process. Mr. Nice also reports diffuse pain. He may have an underlying inflammatory disease. He may benefit from infectious evaluation. If no obvious infection, a trial of prednisone may be helpful for his symptoms. This may also be useful for MM although limited. His overall condition has not improved much with tube feeding. He has not work with PT much. His ECOG PS is closer to 4 at the moment. Recommendations: 1. Infectious work up 2. Consider steroid if no infections 3. Continue PT and STR if possible 4. Follow up as outpatient to discuss therapy likely melphalan/prednisone Please call [phone] with any questions or concerns. Problem List: 1. Multiple myeloma 2. Failure to thrive
--- NOTE | 2016-06-13 14:32 | NUR ---
PHYISCAL THERAPY: ATTEMPTED TO SEE PATIENT THIS P.M.; PATIENT CURRENTLY IN A FAMILY MTG. P.T. WILL F/U APPROPRIATE
--- NOTE | 2016-06-13 15:49 | ULTRASOUND REPORT ---
EXAMINATION: US RETROPERITONEAL COMPLETE (RENAL) CLINICAL INFORMATION: Hematuria. COMPARISON: CT 06/09/2016 TECHNIQUE: Real-time imaging of the kidneys and bladder. FINDINGS: RIGHT KIDNEY: 9.9 x 4.4 x 5.2 cm (SAG x AP x TRV). The kidney is normal in size, contour, and echogenicity. Renal cortical thickness is normal. There is a mid renal calculus measuring up to 0.7 cm in length. No hydronephrosis. LEFT KIDNEY: Visualization is limited due to overlying dressing and bowel gas. 9.9 x 5.0 x 4.4 cm (SAG x AP x TRV). The kidney is normal in size, contour, and echogenicity. Renal cortical thickness is normal. No calculi or focal parenchymal lesions. No hydronephrosis. BLADDER: Partially distended, containing anechoic fluid as well as moderate dependent echogenic debris. A Grant catheter is present. Bilateral ureteral jets are not demonstrated. Prevoid bladder volume is 100 mL. IMPRESSION: 1. Partially distended urinary bladder, containing moderate layering debris. 2. Right mid renal calculus measuring 0.7 cm in length. 3. No hydronephrosis bilaterally.
[2016-06-13 16:42] VITALS: BP 124/68
[2016-06-13 23:30] VITALS: BP 131/66
--- NOTE | 2016-06-14 07:24 | PN- Housestaff ---
GRABIELJAMEEHesham 06/14/16 0724: Subjective Follow-up For: Multiple myeloma, deconditioning, failure to thrive Subjective: Seen and examined patient. Patient seems like he is in pain. Is not very forthcoming with review of systems. continues to be maximum assist of 2 from bed to chair only Review of Systems Constitutional: Denies: see HPI. Objective Last 24 Hrs of Vital Signs/I&O Vital Signs Date Time Temp Pulse Resp B/P Pulse O2 O2 Flow FiO2 Ox Delivery Rate 06/14 1649 98.0 100 19 118/60 92 Room Air 06/14 0845 92 Room Air 06/14 0800 97.4 94 18 106/60 93 Room Air 06/13 2330 97.6 93 16 131/66 94 Room Air Intake & Output 06/14 1600 06/14 0800 06/14 0000 Intake Total 700 416 416 Output Total 250 920 Balance 700 166 -504 Intake, IV 700 Intake, Oral 0 Intake, Tube 416 416 Feeding Number 1 1 Bowel Movements Output, Urine 250 920 Physical Exam General Appearance: Mild Distress, cachexic Cardiovascular: Normal S1, Normal S2 Lungs: b/l rhonchi and crackles Abdomen: Soft Extremities: No Edema Current Medications: Current Medications Sig/Dominique Start time Last Medication Dose Route Stop Time Status Admin Acetaminophen 650 MG Q6 PRN 06/11 1800 AC 06/12 PO 1609 Bisacodyl 10 MG DAILY 06/10 1000 AC 06/10 [place] 0904 Calcitonin [place] 160 UNITS ONCE ONE 06/14 1415 DC SC 06/14 1416 Ceftriaxone Sodium 1,000 MG Q24H 06/14 1100 AC 06/14 IV 1208 Famotidine 20 MG DAILY 06/03 1122 AC 06/14 PO 1148 Lactobacillus 1 CAP BID 05/28 1027 AC 06/14 Acidophilus PO 1148 Morphine Sulfate 1 MG Q6P PRN 06/14 1130 AC 06/14 IV 1226 Morphine Sulfate 2 MG Q6P PRN 06/14 1100 DC IV Olanzapine 5 MG ONCE ONE 06/13 2100 DC IM 06/13 2101 Patient Medication 1 ED .STK-MED ONE 06/14 1406 DC Teaching ED 06/14 1407 Polyethylene Glycol 17 GM DAILY PRN 05/26 1330 AC PO Senna/Docusate Sodium 2 TAB DAILY 06/10 1000 AC 06/13 PO 0900 Sodium Chloride 1,000 ML Q10H 06/14 1100 AC 06/14 IV 1208 Zinc Oxide 1 KARLEE BID 06/07 0830 AC 06/14 TOP 1149 Last 24 Hrs of Lab/Bert Results Last 24 Hrs of Labs/Mics: Laboratory Tests 06/14/16 1115: Urine Color BLDY H, Urine Clarity TURBD H, Urine pH 6.5, Ur Specific [place] 1.020, Urine Protein >=300 H, Urine Ketones 15 H, Urine Nitrite POS H, Urine Bilirubin NEG@ICTO, Urine Urobilinogen 4.0 H, Ur Leukocyte Esterase LARGE H, Ur Microscopic SEDIMENT EXAMINED, Urine RBC PACKD H, Ur Epithelial Cells RARE, Urine Hemoglobin LARGE H, Urine Glucose NEG Microbiology 06/14 1115 URINE ROUT: Urine Culture - RECD Assessment/Plan Assessment: 85-year-old gentleman with PMH of BPH s/p TURP 2 current admission for generalized weakness for s/p bone biopsy and marrow aspirate shows diagnosis of multiple myeloma. Currently with ongoing hematuria with possible UTI, hypercalcemia and deconditioning plan multiple myeloma : -Heme/onc on board appreciate recommendations -Bone marrow biopsy results show hypercellular marrow composed of abnormal plasma cells Flow cytometry is consistent with plasma cell dyscrasia, CD28+ which is associated with less favorable prognosis calcuim pending Failure to thrive per PT pt only works 3x/week and assist of two and just gets from bed to chair. Palliative consult placed. Family does not wish to make patient comfort care at this time but is agreeable to keeping him comfortable and pain-free. Hematuria: continues to have dark red urine no clots and heavy sedimentseen Grant bag. H&H is stable at 11.1. * KUB shows layering debris in the bladder * Follow-up UA and UC and start IV ceftriaxone for possible UTI ? Aspiration pneumonitis versus aspiration pneumonia: on Jevity 1.2 feeds at goal rate, tolerating it well Final Blood cultures from May 24 show no growth, prelim blood cultures from the show no growth, next x-ray shows decreased lung volumes more likely to be atelectasis, completed course of clindamycin and IV Unasyn, continue to follow off antibiotics for now. However he could still be continuing to aspirate spirometry at bedside Hypocalcemia/hypokalemia/hypomagnesmia/hypophos * Discontinued Neutra-Phos * Start IV fluids and calcitonin. Follow-up calcium tomorrow Diet: NPO.tube feeds DVT prophylaxis: alps DNR/DNI POA son ([phone]) Problem List: 1. Hypercalcemia 2. Failure to thrive 3. Multiple myeloma Pain Ratin Pain Location: unable to articulate however grimaces in pain Pain Goal: Pain 4 or less Pain Plan: will start IV morphine 1mg q6 prn Tomorrow's Labs & Rationales: on tube feeds/hyper cabep Consulting Request: Consulting Specialty: Hematology/Oncology Consulting Physician: JACOB HALL MD, MD 06/14/16 1356: Attending MD Review Statement Attending Statement Attending MD Statement: examined this patient, discuss w/resident/PA/AUTOC[employer] DRAFTSMAN, agreed w/resident/PA/[employer] DRAFTSMAN, reviewed EMR data (avail) Attending Assessment/Plan: 85M PMH BPH s/p TURP admitted initially with generalized weakness, found to have multiple myeloma diagnosed by flow cytometry and bone marrow biopsy. Course complicated by chronic aspiration, failed swallow evaluation and PEG was placed with tube feedings. Patient has generalized weakness, debility, and failure to thrive, and is currently unable to get out of bed without assistance of 2. Today he is in distress, appears to be in pain, unable to give any other history other than wanting to go home. He is grimacing and appears very uncomfortable. Still having dark urine. Vitals stable. Urinalysis is suggestive of UTI, urine culture sent. Calcium is 13.1 today. AFVSS Cachectic, in distress NCAT Supple RRR CTAB Soft, NTND No c/c/e A&Ox1, no focal deficits 1. Multiple myeloma with diffuse bony lesions 2. Intractable bone pain 3. Hypercalcemia of malignancy 4. Urinary tract infection with hematuria 5. Debility 6. Generalized weakness Plan - Continue on inpatient - May give dose of Calcitonin - COnsider Pamidronate tomorrow - Follow hematology recommendations - Avoid calcium containing supplements - Start Morphine 1 mg q6h PRN - Start Ceftriaxone for UTI - Follow urine culture - Work with PT as tolerated - Hospice referral - Continue tube feeds - DNR/DNI - Long discussion with family today. Patient cannot go home as there is not enough family at home to care for him, and his has dementia and cannot be primary top carrier. Per son they cannot afford 24-hour home care. Patient cannot participate in rehab, requires assist of 2 to pivot to chair and screams in pain. He has no strength to work with rehab and is not a candidate for short term rehab at this time. Hospice referral has been called, but son is hesitant to start hospice care, as he feels he would be giving up on his father. Will continue discussions with family for goals of care.
[2016-06-14 08:00] VITALS: BP 106/60
--- NOTE | 2016-06-14 08:03 | PN- Hematology ---
Subjective Subjective: His mental status is a little worse this morning. He is disoriented. He has pain in his lower extremity. Review of Systems: Unable to be obtained due to mental status. Objective Vital Signs and I&Os Vital Signs Date Time Temp Pulse Resp B/P Pulse O2 O2 Flow FiO2 Ox Delivery Rate 06/13 2330 97.6 93 16 131/66 94 Room Air 06/13 1642 98.2 100 19 124/68 94 Room Air 06/13 1120 93 Room Air Room Air 06/13 0821 99.1 103 20 122/60 93 Room Air Intake & Output 06/14 0806/14 0000 06/13 1600 06/13 0806/13 0000 06/12 1600 Intake Total 416 716 416 541 Output Total 250 920 450 250 600 425 Balance -250 -504 266 166 -600 116 Intake, Oral 0 0 Intake, Tube 416 416 416 416 Feeding Intake, Tube 300 125 Irrigant Number 2 Bowel Movements Output, Urine 250 920 450 250 600 425 Physical Exam General Appearance: lethargic Ears, Nose, Throat: dry mucus membranes Respiratory: chest non-tender, no respiratory distress, coarse breath sounds throughout Cardiovascular: edema (1+ankle edema bilaterally), tachycardia Abdomen: normal bowel sounds, soft, tenderness (at PEG site) Extremities: pedal edema Neurologic/Psychiatric: disoriented x 3 Skin: warm/dry Current Medications: Current Medications Sig/Dominique Start time Last Medication Dose Route Stop Time Status Admin Acetaminophen 650 MG .STK-MED ONE 06/13 0907 DC PO 06/13 0908 Acetaminophen 650 MG Q6 PRN 06/11 1800 AC 06/12 PO 1609 Bisacodyl 10 MG DAILY 06/10 1000 AC 06/10 [place] 0904 Famotidine 20 MG DAILY 06/03 1122 AC 06/13 PO 0900 Lactobacillus 1 CAP BID 05/28 1027 AC 06/13 Acidophilus PO 2220 Olanzapine 5 MG ONCE ONE 06/13 2100 DC IM 06/13 2101 Polyethylene Glycol 17 GM DAILY PRN 05/26 1330 AC PO Senna/Docusate Sodium 2 TAB DAILY 06/10 1000 AC 06/13 PO 0900 Zinc Oxide 1 KARLEE BID 06/07 0830 AC 06/13 TOP 2220 Results Last 24 Hours of Lab Results: Laboratory Tests 06/13 08 Chemistry Sodium (137 - 145 mmol/L) 144 Potassium (3.5 - 5.1 mmol/L) 4.4 Chloride (98 - 107 mmol/L) 101 Carbon Dioxide (22 - 30 mmol/L) 35 H Anion Gap (5 - 16) 9 BUN (9 - 20 mg/dL) 36 H Creatinine (0.7 - 1.2 mg/dL) 0.6 L Estimated GFR (>60 ml/min) > 60 BUN/Creatinine Ratio (7 - 25 %) 60.0 H Calcium (8.4 - 10.2 mg/dL) 11.7 H Hematology CBC w Diff NO MAN DIFF REQ WBC (4.8 - 10.8 /CUMM) 13.1 H RBC (4.70 - 6.10 /CUMM) 3.69 L Hgb (14.0 - 18.0 G/DL) 11.6 L Hct (42 - 52 %) 34.5 L MCV (80.0 - 94.0 FL) 93.4 MCH (27.0 - 31.0 PG) 31.4 H RDW (11.5 - 14.5 %) 14.4 Plt Count (130 - 400 /CUMM) 593 H MPV (7.4 - 10.4 FL) 7.8 Gran % (42.2 - 75.2 %) 88.9 H Lymphocytes % (20.5 - 51.1 %) 4.9 L Monocytes % (1.7 - 9.3 %) 5.9 Eosinophils % (0 - 5 %) 0 Basophils % (0.0 - 2.0 %) 0.3 Absolute Granulocytes (1.4 - 6.5 /CUMM) 11.6 H Absolute Lymphocytes (1.2 - 3.4 /CUMM) 0.6 L Absolute Monocytes (0.10 - 0.60 /CUMM) 0.8 H Absolute Eosinophils (0.0 - 0.7 /CUMM) 0 Absolute Basophils (0.0 - 0.2 /CUMM) 0 PUBS MCHC (33.0 - 37.0 G/DL) 33.6 Recent Imaging Studies: Renal US 06/13/2016: 1. Partially distended urinary bladder, containing moderate layering debris. 2. Right mid renal calculus measuring 0.7 cm in length. 3. No hydronephrosis bilaterally. Assessment/Plan Assessment/Recommendations: Mr. Nice is an 85-year-old with history of BPH s/p TURB who presents with significant weakness, weight loss, and decondition. On admission, he was noted to have hypercalcemia (13.9) and protein gap (total protein at 11.2, albumin at 3.9). His creatinine and hemoglobin are normal. CT imaging noted lytic bone lesions. Bone marrow was done by IR and pathology demonstrated plasma cell neoplasm. Flow cytometry demonstrated plasma cell dyscrasia. Beta-2 -microglobulin elevated at 5.47. IgG elevate at 3026. Immunofixation positive for IgG kappa. He is diagnosed with ISS stage III myeloma IgG kappa. He continues to be disoriented today. His calcium is increasing once again. His corrected calcium yesterday is about 13.1. This is concerning for hypercalcemia symptoms again. He should have calcium discontinued if he is getting any for previous hypocalcemia. Calcitonin can be consider along with repeat doing of pamidronate. He also has hematuria. This may be related to the zimmer and BPH. Urology evaluation may be considered. Overall, his condition has not improved much. He is receiving tube feeding. His ECOG PS is closer to 4 at the moment. If he does not improve much clinically and able to work with PT, it will be difficult to treat him. Recommendations: 1. Infectious work up: blood culture and urine culture (UA on 06/11 with nitrate and LE) 2. Consider steroid if no infections 3. Hypercalcemia therapy: discontinue calcium, calcitonin, consider bisphosphate Please call [phone] with any questions or concerns. Problem List: 1. Multiple myeloma 2. Hypercalcemia 3. Failure to thrive 4. Multiple falls 5. Lytic bone lesions on xray
--- NOTE | 2016-06-14 15:31 | NUR ---
PHYSICAL THERAPY. Pt WAS UNABLE TO PARTICIPATE IN PHYSICAL THERAPY TX AND WAS LETHARGIC AND UNABLE TO FOLLOW COMMANDS. GENTLE ENCOURAGED BED LEVEL STRETCHES W/ POOR TOLERANCE & MET WITH Pt RESISTANCE. PT WILL FOLLOW UP APPROPRIATE.
[2016-06-14 16:49] VITALS: BP 118/60
[2016-06-15 00:33] VITALS: BP 124/62
[2016-06-15 08:18] VITALS: BP 122/60
--- NOTE | 2016-06-15 08:45 | NUR ---
PHYSICAL THERAPY- ATTEMPTED TO SEE PT THIS AM, PT MOANING AND APPEARING UNCOMFORTABLE. OFFERED TO ASSIST PT OOB TO RECLINER FOR POSITION CHANGE/COMFORT, PT CLEARLY SHOOK HEAD NO. ALSO OFFERED REPOSITIONING IN BED FOR COMFORT, TO WHICH PT SHOOK HEAD NO. WHEN I ASKED PT IF PILLOW WAS COMFORTABLE, HE ALSO SHOOK HIS HEAD NO, I OFFERED TO REPOSITION PILLOW, PT SHOOK HIS HEAD YES AND MOANED. REPOSITIONED PILLOW. WHEN ASKED PT IF PILLOW WAS BETTER, PT SHOOK HIS HEAD YES. WILL FOLLOW APPROPRIATE.
--- NOTE | 2016-06-15 09:05 | PN- Housestaff ---
RAUL SPAIN 06/15/16 0904: Subjective Follow-up For: Stage III myeloma Status post PEG tube placement Subjective: Seen and examined patient continues to be minimally responsive at this time not answering questions. Review of Systems Constitutional: Denies: see HPI. Objective Last 24 Hrs of Vital Signs/I&O Vital Signs Date Time Temp Pulse Resp B/P Pulse O2 O2 Flow FiO2 Ox Delivery Rate 06/15 0818 97.9 95 18 122/60 92 Room Air 06/15 0033 98.2 98 18 124/62 93 Room Air 06/14 1649 98.0 100 19 118/60 92 Room Air Intake & Output 06/15 1600 06/15 0800 06/15 0000 Intake Total 1466 733 Output Total 1350 950 Balance -1350 516 733 Intake, IV 800 400 Intake, Oral 0 0 Intake, Tube 416 125 Feeding Intake, Tube 250 208 Irrigant Number 1 1 Bowel Movements Output, Urine 1350 950 Physical Exam General Appearance: Moderate Distress, cachectic Cardiovascular: Normal S1, Normal S2 Lungs: bilateral decreased breath sounds Extremities: No Edema Current Medications: Current Medications Sig/Dominique Start time Last Medication Dose Route Stop Time Status Admin Acetaminophen 650 MG Q6 PRN 06/11 1800 AC 06/15 PO 1001 Bisacodyl 10 MG DAILY 06/10 1000 AC 06/10 DC 0904 Calcitonin [place] 160 UNITS ONCE ONE 06/15 0830 DC 06/15 SC 06/15 0831 0844 Ceftriaxone Sodium 1,000 MG Q24H 06/14 1100 AC 06/15 IV 1059 Famotidine 20 MG DAILY 06/03 1122 AC 06/15 PO 0955 Lactobacillus 1 CAP BID 05/28 1027 AC 06/15 Acidophilus PO 0954 Morphine Sulfate 1 MG Q6 06/15 1200 AC 06/15 IV 1103 Morphine Sulfate 2 MG Q4P PRN 06/15 1030 AC IV Morphine Sulfate 1 MG Q6P PRN 06/14 1130 DC 06/15 IV 0608 Polyethylene Glycol 17 GM DAILY PRN 05/26 1330 AC PO Senna/Docusate Sodium 2 TAB DAILY 06/10 1000 AC 06/15 PO 0954 Sodium Chloride 1,000 ML Q10H 06/14 1100 DC 06/15 IV 0757 Zinc Oxide 1 KARLEE BID 06/07 0830 AC 06/15 TOP 0955 Last 24 Hrs of Lab/Bert Results Last 24 Hrs of Labs/Mics: Laboratory Tests 06/15/16 0650: Calcium 12.3 H 06/15/16 0650: Anion Gap 9, Estimated GFR > 60, BUN/Creatinine Ratio 75.0 H, Calcium 12.3 H, Phosphorus 3.3, Magnesium 2.0 Assessment/Plan Assessment: 85-year-old gentleman with PMH of BPH s/p TURP 2 current admission for generalized weakness, inpatient workup revealed stage III multiple myeloma. Continues to be minimally responsive and ongoing hematuria. 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 Family does not wish to make patient comfort care at this time but is agreeable to keeping him comfortable and pain-free. Urinary tract infection UA shows positive for nitrates and leukocyte esterase, urine cultures positive for gram-negative rods will continue with IV ceftriaxone day 2 pending sensitivities Hematuria: continues to have dark red urine no clots and heavy sedimentseen [place] bag. H&H is stable at 11.1. KUB shows layering debris in the bladder Aspiration pneumonitis versus aspiration pneumonia: on Jevity 1.2 feeds at goal rate, tolerating it well Final Blood cultures from May 24 show no growth, prelim blood cultures from the show no growth, next x-ray shows decreased lung volumes more likely to be atelectasis, completed course of clindamycin and IV Unasyn, continue to follow off antibiotics for now. HyperNA/hypokalemia/hypomagnesmia/hypophos * Discontinued normal saline, increased free water flushes with tube feeds * Discontinued Neutra-Phos Diet: NPO.tube feeds DVT prophylaxis: alps DNR/DNI Poor Prognosis POA son ([phone]) Problem List: 1. Hypercalcemia 2. Multiple myeloma 3. S/P percutaneous endoscopic gastrostomy (PEG) tube placement Pain Ratin Pain Location: Patient unable to localize severity of pain Pain Goal: Pain 4 or less Pain Plan: Will start morphine 1 mg every 6 [id number] with morphine 2 mg every 4 when necessary Tomorrow's Labs & Rationales: Need to monitor calcium and sodium ordered BEP Consulting Request: Consulting Specialty: Hematology/Oncology Consulting Physician: JUANITO LYN MDALISEKAYLA 06/15/16 1105: Attending MD Review Statement Attending Statement Attending MD Statement: examined this patient, discuss w/resident/PA/REGIONAL EDUCATION COORDINATOR, agreed w/resident/PA/REGIONAL EDUCATION COORDINATOR, reviewed EMR data (avail) Attending Assessment/Plan: 85M PMH BPH s/p TURP admitted initially with generalized weakness, found to have multiple myeloma diagnosed by flow cytometry and bone marrow biopsy. Course complicated by chronic aspiration, failed swallow evaluation and PEG was placed with tube feedings. Patient has generalized weakness, debility, and failure to thrive, and is currently unable to get out of bed without assistance of 2. Tolerated Morphine well. Still appears uncomfortable and in pain. AFVSS Cachectic, in distress NCAT Supple RRR CTAB Soft, NTND No c/c/e A&Ox1, no focal deficits 1. Multiple myeloma with diffuse bony lesions 2. Intractable bone pain 3. Hypercalcemia of malignancy 4. Urinary tract infection with hematuria 5. Debility 6. Generalized weakness Plan - Continue on inpatient - May give dose of Calcitonin - Follow hematology recommendations - Avoid calcium containing supplements - Change Morphine to 1mg q6h standing - Start Morphine 2mg q4h PRN - Continue Ceftriaxone for UTI - Follow urine culture - Work with PT as tolerated - Hospice referral - Continue tube feeds - DNR/DNI - Will continue goals of care discussion. Poor prognosis.
--- NOTE | 2016-06-15 11:09 | PN- Hematology ---
Subjective Subjective: He is able to answer any questions. He seems to be tearful. Review of Systems: Unable to obtain history due to mental status. Objective Vital Signs and I&Os Vital Signs Date Time Temp Pulse Resp B/P Pulse O2 O2 Flow FiO2 Ox Delivery Rate 06/15 0818 97.9 95 18 122/60 92 Room Air 06/15 0033 98.2 98 18 124/62 93 Room Air 06/14 1649 98.0 100 19 118/60 92 Room Air Intake & Output 06/15 1600 06/15 0806/15 0000 06/14 1600 06/14 0806/14 0000 Intake Total 1466 733 700 416 416 Output Total 950 250 920 Balance 516 733 700 166 -504 Intake, IV 800 400 700 Intake, Oral 0 0 0 Intake, Tube 416 125 416 416 Feeding Intake, Tube 250 208 Irrigant Number 1 1 1 Bowel Movements Output, Urine 950 250 920 Physical Exam: General Appearance: lethargic Ears, Nose, Throat: dry mucus membranes Respiratory: chest non-tender, no respiratory distress, coarse breath sounds throughout Cardiovascular: edema (1+ankle edema bilaterally), tachycardia Abdomen: normal bowel sounds, soft, tenderness (at PEG site) Extremities: pedal edema; tenderness to palpation all over. Neurologic/Psychiatric: disoriented x 3; tearful Skin: warm/dry Current Medications: Current Medications Sig/Dominique Start time Last Medication Dose Route Stop Time Status Admin Acetaminophen 650 MG Q6 PRN 06/11 1800 AC 06/15 PO 1001 Bisacodyl 10 MG DAILY 06/10 1000 AC 06/10 OK 0904 Calcitonin [place] 160 UNITS ONCE ONE 06/15 0830 DC 06/15 NV 06/15 0831 0844 Calcitonin [place] 160 UNITS ONCE ONE 06/14 1415 DC SC 06/14 1416 Ceftriaxone Sodium 1,000 MG Q24H 06/14 1100 AC 06/14 IV 1208 Famotidine 20 MG DAILY 06/03 1122 AC 06/15 PO 0955 Lactobacillus 1 CAP BID 05/28 1027 AC 06/15 Acidophilus PO 0954 Morphine Sulfate 1 MG Q6 06/15 1200 AC IV Morphine Sulfate 2 MG Q4P PRN 06/15 1030 AC IV Morphine Sulfate 1 MG Q6P PRN 06/14 1130 DC 06/15 IV 0608 Morphine Sulfate 2 MG Q6P PRN 06/14 1100 DC IV Patient Medication 1 ED .STK-MED ONE 06/14 1406 SD Teaching ED 06/14 1407 Polyethylene Glycol 17 GM DAILY PRN 05/26 1330 AC PO Senna/Docusate Sodium 2 TAB DAILY 06/10 1000 AC 06/15 PO 0954 Sodium Chloride 1,000 ML Q10H 06/14 1100 DC 06/15 IV 0757 Zinc Oxide 1 KARLEE BID 06/07 0830 AC 06/15 TOP 0955 Results Last 24 Hours of Lab Results: Laboratory Tests 06/15 06/15 06/14 0650 0650 1115 Chemistry Sodium (137 - 145 mmol/L) 155 H Potassium (3.5 - 5.1 mmol/L) 4.1 Chloride (98 - 107 mmol/L) 110 H Carbon Dioxide (22 - 30 mmol/L) 36 H Anion Gap (5 - 16) 9 BUN (9 - 20 mg/dL) 45 H Creatinine (0.7 - 1.2 mg/dL) 0.6 L Estimated GFR (>60 ml/min) > 60 BUN/Creatinine Ratio (7 - 25 %) 75.0 H Calcium (8.4 - 10.2 mg/dL) 12.3 H 12.3 H Phosphorus (2.5 - 4.5 mg/dL) 3.3 Magnesium (1.6 - 2.3 mg/dL) 2.0 Urines Urine Color (YEL,AMB,STR) BLDY H Urine Clarity (CLEAR) TURBD H Urine pH (5.0 - 8.0) 6.5 Ur Specific [place] (1.001 - 1.035) 1.020 Urine Protein (NEG,<30 MG/DL) >=300 H Urine Ketones (NEG) 15 H Urine Nitrite (NEG) POS H Urine Bilirubin (NEG) NEG@ICTO Urine Urobilinogen (0.1 - 1.0 EU/dl) 4.0 H Ur Leukocyte Esterase (NEG) LARGE H Ur Microscopic SEDIMENT EXAMINED Urine RBC (0 - 5 /HPF) PACKD H Ur Epithelial Cells (NONE,FEW) RARE Urine Hemoglobin (NEG) LARGE H Urine Glucose (N MG/DL) NEG Assessment/Plan Assessment/Recommendations: Mr. Nice is an 85-year-old with history of BPH s/p TURB who presents with significant weakness, weight loss, and decondition. On admission, he was noted to have hypercalcemia (13.9) and protein gap (total protein at 11.2, albumin at 3.9). His creatinine and hemoglobin are normal. CT imaging noted lytic bone lesions. Bone marrow was done by IR and pathology demonstrated plasma cell neoplasm. Flow cytometry demonstrated plasma cell dyscrasia. Beta-2 -microglobulin elevated at 5.47. IgG elevate at 3026. Immunofixation positive for IgG kappa. He is diagnosed with ISS stage III myeloma IgG kappa. He continues to be disoriented. His calcium continues to increase. He is noted to be hypernatremic today. This should be checked again to ensure correct measure. He is getting IVF and calcitonin. He continues to have hematuria, now gross with debris. He has been started on ceftriaxone for possible UTI. His tube feeding should be adjusted for hypernatremia and consider increasing free water flushes. He should be given pamidronate given the increasing calcium once again. Recommendations: 1. Infectious work up pending 2. Consider steroid if no infections 3. Bisphosphate (pamidronate 60 mg) once 4. Continue antibiotic 5. Increase free water flushes and correction of hypernatremia (consider repeat BMP prior) Please call [phone] with any questions or concerns. Problem List: 1. Multiple myeloma 2. Lytic bone lesions on xray 3. Multiple falls 4. Failure to thrive 5. Hypercalcemia
--- NOTE | 2016-06-15 15:50 | NUR ---
WOUND CARE: REQUESTED BY NURSING STAFF TO EVALUATE PT FOR SKIN ALTERATION TO SACRAL AREA - HX OBTAINED FROM NURSING STAFF AND REVIEW FROM CHART NOTES - PT NONVERBAL AT PRESENT, CACHECTIC, SEVERE IMMOBILITY - RECOMMENDATION HAS BEEN MADE FOR HOSPICE LEVEL OF CARE, ALTHOUGH FAMILY DEFERS RECOMMENDATION AT THIS PRESENT TIME - UPON ASSESSMENT, PT NOTED WTIH 6X7 CM AREA OF INTACT SKIN WITH DARK PINK/MIXED VIOLACEOUS HUE IRREGULAR SHAPED MARGINS - BACK NOTED WITH A STAGE 1 PRESSURE INJURY 6X6 CM NON BLANCHABLE ERYTHEMA - IMPRESSION: BEGINING SUSPECTED DEEP TISSUE INJURY SACRUM, POSSIBLE BEGINING ALEXUS TERMINAL ULCER RECOMMENDATION - PT HAS DETERIORATED DESPITE REPOSITIONING AND USE OF GROUP 2 ALTERNATING PRESSURE MATTRESS. THEREFORE, PLEASE USE CLINITRON MATTRESS PT IS AT VERY HIGH RISK FOR SKIN BREAKDOWN. DUE TO COMORBIDITIES, EXPECT DETERIORATION DESPITE OPTIMAL CARE - CONT WITH PREVENTATIVE CARE QS AND PRN, AND APPLY MOISTURE BARRIER QS AND AFTER INC EPISODES
[2016-06-15 16:01] VITALS: BP 110/70
--- NOTE | 2016-06-15 16:10 | NUR ---
NURSING NOTE: PT PULSE 130. RAUL RODRIGUEZ #[id number] LYN MADE AWARE. PRN MORPHINE 2MG IV GIVEN ORDERED. WILL RECHECK AT 4:30PM PER MD REQUEST. WILL CONTINUE TO MONITOR.
--- NOTE | 2016-06-15 16:40 | NUR ---
NURSING NOTE: RECHECKED PULSE AFTER GIVING MORPHINE AND PULSE CAME DOWN TO 98 RAUL SPAIN #299 AWARE.
[2016-06-16 00:13] VITALS: BP 110/68
--- NOTE | 2016-06-16 08:49 | PN- Hematology ---
Subjective Subjective: He continues to be non-verbal and disoriented. Review of Systems: Unable to be obtained due to mental status. Objective Vital Signs and I&Os Vital Signs Date Time Temp Pulse Resp B/P Pulse O2 O2 Flow FiO2 Ox Delivery Rate 06/16 0013 97.6 97 20 110/68 94 Room Air 06/15 1640 98 06/15 1601 97.4 130 20 110/70 93 Room Air 06/15 1600 92 Room Air Room Air Intake & Output 06/16 1600 06/16 0806/16 0000 06/15 1600 06/15 0806/15 0000 Intake Total 541 573 797 1691 733 Output Total 667 211 2506 950 Balance -159 -569 -684 516 733 Intake, IV 800 400 Intake, Oral 0 0 0 Intake, Tube 416 156 416 416 125 Feeding Intake, Tube 125 25 250 250 208 Irrigant Number 1 1 1 Bowel Movements Output, Urine 315 524 5172 950 Physical Exam: General Appearance: lethargic, non-verbal Ears, Nose, Throat: dry mucus membranes Respiratory: chest non-tender, no respiratory distress, coarse breath sounds throughout Cardiovascular: edema (1+ankle edema bilaterally), tachycardia Abdomen: normal bowel sounds, soft, tenderness (at PEG site) Extremities: pedal edema; tenderness to palpation throughout the body. Neurologic/Psychiatric: disoriented x 3; tearful Current Medications: Current Medications Sig/Dominique Start time Last Medication Dose Route Stop Time Status Admin Acetaminophen 650 MG .STK-MED ONE 06/15 0955 DC PO 06/15 0956 Acetaminophen 650 MG Q6 PRN 06/11 1800 DC 06/15 PO 1001 Bisacodyl 10 MG DAILY 06/10 1000 DC 06/10 MT 0904 Ceftriaxone Sodium 1,000 MG Q24H 06/14 1100 DC 06/15 IV 1059 Famotidine 20 MG DAILY 06/03 1122 DC 06/15 PO 0955 Lactobacillus 1 CAP BID 05/28 1027 DC 06/15 Acidophilus PO 0954 Morphine Sulfate 2 MG Q6 06/15 1800 AC 06/16 IV 0531 Morphine Sulfate 1 MG Q6 06/15 1200 DC 06/15 IV 1103 Morphine Sulfate 2 MG Q4P PRN 06/15 1030 AC 06/15 IV 1553 Morphine Sulfate 1 MG Q6P PRN 06/14 1130 DC 06/15 IV 0608 Polyethylene Glycol 17 GM DAILY PRN 05/26 1330 DC PO Scopolamine HBr 1 PAT Q72H 06/15 1615 AC 06/15 TOP 1650 Senna/Docusate Sodium 2 TAB DAILY 06/10 1000 DC 06/15 PO 0954 Zinc Oxide 1 KARLEE BID 06/16 1000 AC TOP Zinc Oxide 1 KARLEE BID 06/07 0830 DC 06/15 TOP 0955 Results Last 24 Hours of Lab Results: Laboratory Tests 06/16 0731 Chemistry Phosphorus Cancelled Assessment/Plan Assessment/Recommendations: Mr. Nice is an 85-year-old with history of BPH s/p TURB who presents with significant weakness, weight loss, and decondition. On admission, he was noted to have hypercalcemia (13.9) and protein gap (total protein at 11.2, albumin at 3.9). His creatinine and hemoglobin are normal. CT imaging noted lytic bone lesions. Bone marrow was done by IR and pathology demonstrated plasma cell neoplasm. Flow cytometry demonstrated plasma cell dyscrasia. Beta-2- microglobulin elevated at 5.47. IgG elevate at 3026. Immunofixation positive for IgG kappa. He is diagnosed with ISS stage III myeloma IgG kappa. He continues to be disoriented. There are some issues regarding his living will. This is being worked out by the primary team to determine Mr. Nice's wishes regarding his care. While waiting for the results, he is being treated for GNR UTI, hypercalcemia, and hypernatremia. His free water flushes is increase. He is on ceftriaxone for the UTI. He is getting calcitonin for hypercalcema. Hopefully his mental status improves with these intervention as he was improving until Sunday. RECOMMENDATIONS: 1. Antibiotic as per primary team 2. Consider bisphosphate as last dose was >1 week ago (if corrected calcium >13) 3. Monitor Na level and correct Please call [phone] with any questions. Problem List: 1. Multiple myeloma 2. Lytic bone lesions on xray 3. Multiple falls 4. Failure to thrive 5. Hypercalcemia
[2016-06-16 08:54] VITALS: BP 126/68
--- NOTE | 2016-06-16 09:29 | PN- Housestaff ---
ZORA SPAINANIBAL 06/16/16 0929: Subjective Follow-up For: Stage III myeloma Status post PEG tube placement Failure to thrive Complaints: pt unable to provide hx Subjective: Not answering questions today. Not obeying simple commands. Review of Systems Constitutional: Denies: see HPI. Objective Last 24 Hrs of Vital Signs/I&O Vital Signs Date Time Temp Pulse Resp B/P Pulse O2 O2 Flow FiO2 Ox Delivery Rate 06/16 0854 98.3 113 20 126/68 91 Room Air 06/16 0013 97.6 97 20 110/68 94 Room Air 06/15 1640 98 06/15 1601 97.4 130 20 110/70 93 Room Air 06/15 1600 92 Room Air Room Air Intake & Output 06/16 1600 06/16 0800 06/16 0000 Intake Total 541 181 Output Total 700 750 Balance -159 -569 Intake, Oral 0 Intake, Tube 416 156 Feeding Intake, Tube 125 25 Irrigant Number 1 Bowel Movements Output, Urine 700 750 Physical Exam General Appearance: Moderate Distress Cardiovascular: Regular Rate Lungs: Normal Air Movement Current Medications: Current Medications Sig/Dominique Start time Last Medication Dose Route Stop Time Status Admin Acetaminophen 650 MG .STK-MED ONE 06/15 0955 DC PO 06/15 0956 Acetaminophen 650 MG Q6 PRN 06/11 1800 DC 06/15 PO 1001 Bisacodyl 10 MG DAILY 06/10 1000 DC 06/10 HI 0904 Ceftriaxone Sodium 1,000 MG Q24H 06/14 1100 DC 06/15 IV 1059 Famotidine 20 MG DAILY 06/03 1122 DC 06/15 PO 0955 Lactobacillus 1 CAP BID 05/28 1027 DC 06/15 Acidophilus PO 0954 Morphine Sulfate 2 MG Q6 06/15 1800 AC 06/16 IV 0531 Morphine Sulfate 1 MG Q6 06/15 1200 DC 06/15 IV 1103 Morphine Sulfate 2 MG Q4P PRN 06/15 1030 AC 06/15 IV 1553 Morphine Sulfate 1 MG Q6P PRN 06/14 1130 DC 06/15 IV 0608 Polyethylene Glycol 17 GM DAILY PRN 05/26 1330 DC PO Scopolamine HBr 1 PAT Q72H 06/15 1615 AC 06/15 TOP 1650 Senna/Docusate Sodium 2 TAB DAILY 06/10 1000 DC 06/15 PO 0954 Zinc Oxide 1 KARLEE BID 06/16 1000 AC 06/16 TOP 0848 Zinc Oxide 1 KARLEE BID 06/07 0830 DC 06/15 TOP 0955 Last 24 Hrs of Lab/Bert Results Last 24 Hrs of Labs/Mics: Laboratory Tests 06/16/16 0731: Phosphorus Cancelled Assessment/Plan Assessment: 85-year-old gentleman with PMH of BPH s/p TURP 2 current admission for generalized weakness, inpatient workup revealed stage III multiple myeloma. Worsening mental status. Minimally arousable and not obeying commands. Hematuria has improved. Prognosis remains very guarded. 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 HyperNA/hypokalemia/hypomagnesmia/hypophos * Sodium 163 today, Clear free water deficit is 3.5 L, will start IV D5 half- normal saline at 100 mL and increase free water flushes 200 mL every 6 * Discontinued Neutra-Phos Diet: NPO.tube feeds DVT prophylaxis: alps DNR/DNI Poor Prognosis POA son ([phone]) Problem List: 1. Hypercalcemia 2. Multiple myeloma 3. S/P percutaneous endoscopic gastrostomy (PEG) tube placement 4. UTI (urinary tract infection) 5. Failure to thrive 6. Hypernatremia Pain Ratin Pain Location: not able to answer Pain Goal: Pain 4 or less Pain Plan: continue current regimen Tomorrow's Labs & Rationales: bep/ca/album for hyperna, hyperca, Consulting Request: Consulting Specialty: Hematology/Oncology Consulting Physician: JACOB HALL MD, MD 06/16/16 1211: Attending MD Review Statement Attending Statement Attending MD Statement: examined this patient, discuss w/resident/PA/RADIUS GRINDER, agreed w/resident/PA/RADIUS GRINDER, reviewed EMR data (avail) Attending Assessment/Plan: 85M PMH BPH s/p TURP admitted initially with generalized weakness, found to have multiple myeloma diagnosed by flow cytometry and bone marrow biopsy. Course complicated by chronic aspiration, failed swallow evaluation and PEG was placed with tube feedings. Patient has generalized weakness, debility, and failure to thrive, and is currently unable to get out of bed without assistance of 2. Patient appears much more comfortable today. He is breathing quietly and no longer grimacing and yelling. He answers basic questions appropriately. Urine has become more clear and yellow as well. AFVSS Cachectic, in distress NCAT Supple RRR CTAB Soft, NTND No c/c/e A&Ox1, no focal deficits 1. Multiple myeloma with diffuse bony lesions 2. Intractable bone pain 3. Hypercalcemia of malignancy 4. Urinary tract infection with hematuria 5. Debility 6. Generalized weakness Plan - Patient's living will states that in the event he is terminally ill, which is the case here, he would not want intubation, CPR, or artificial feeding. - Stop tube feeds - Continue on inpatient - Will check calcium and sodium today, as correcting these may provide pain relief - Follow hematology recommendations - Avoid calcium containing supplements - Change Morphine to 2mg q6h standing - Start Morphine 2mg q4h PRN - Start Ativan 1mg IV q4h PRN - Start artificial tears and saliva with mouth care and suctioning for comfort - Continue Ceftriaxone for UTI - Follow urine culture - DNR/DNI - Patient has a poor prognosis. Will continue with non-invasive treatments and management with focus on comfort, in accordance with the patient's living will
--- NOTE | 2016-06-16 14:42 | NUR ---
PHYSICAL THERAPY- ATTEMPTED TO SEE PT THIS AM, PT BARELY RESPONDING TO THERAPIST, GAVE A SLIGHT NOD "NO" OF HEAD. WILL FOLLOW APPROPRIATE.
--- NOTE | 2016-06-16 15:01 | NUR ---
SPEECH THERAPY: PT SLEEPING AT BEDSIDE W/ OPEN MOUTH POSTURE. PER RN, DECISION MADE TO FOLLOW LIVING WILL; TUBE FEEDINGS STOPPED. PT UNABLE TO VERBALIZE TO ST ?'S/FOLLOW BASIC COMMANDS. ST ATTEMPTED TO PERFORM ORAL CARE; PT UNAROUSABLE DESPITE MAX. VERBAL/TACTILE CUES. PT CONTINUES TO BE UNABLE TO SAFELY MEET NUTRITION/HYDRATION NEEDS ORALLY.
[2016-06-16 16:58] VITALS: BP 120/66
--- NOTE | 2016-06-16 17:00 | NUR ---
NURSING NOTE: PT UNRESPONSIVE, APPEARS TO BE IN NO DISTRESS. RAUL SPAIN NOTIFIED OF THE VS TAKEN AT 1600 BP 120/66, PULSE 136, O2 SAT ON RA 81%. PT PLACED ON 5L NC AND O2 SAT CAME UP TO 90% AFTER DOSE OF MORPHINE AT 1615 PT PULSE CAME DOWN TO 74 TEMPORARILY. PT FAMILY AT BEDSIDE AND ASKING FOR COMFORT CARE INFORMATION BUT STILL UNSURE. PT RESTING COMFORTABLY AT PRESENT TIME.
[2016-06-17 00:02] VITALS: BP 130/68
--- NOTE | 2016-06-17 01:32 | Event Note ---
Event Note Event Note: Shortly before 1:30 AM today, nursing staff noticed that patient had stopped breathing and was cold to touch. The patient was assessed by myself at bedside. Bilateral pupils were fixed, dilated and unresponsive to light. He was not breathing. Heart sounds and pulse was absent. The patient was pronounced at 1:30 AM.
--- NOTE | 2016-06-17 01:40 | NUR ---
PT UNRESPONSIVE. PUPILS FIXED & DILATED. SKIN COLD TO TOUCH. NO PULSE OR BP FOUND. PAGED #[phone] CLEMENT PRONOUNCED PT TIME OF @0130 ON 06/17/15. PT FAMILY CALLED BY MD AND FAMILY WILL BE UP TO SEE FAMILY MEMBER.
== END 2016-06-17 01:30 | disposition expired | DRG 823 ==
LOC: ERH 15:11 → ERHI 19:32 → 2NB 19:32
PROVIDERS: Emergency Medicine; Internal Medicine; Radiology Diagnostic Radiology; Student in an Organized Health Care Education/Training Program; ADMIT Internal Medicine
PROC: 0Q923ZX Drainage of Right Pelvic Bone, Percutaneous Approach, Diagnostic (ICD-10-PCS; principal; 2016-05-29)
PROC: 0DH63UZ Insertion of Feeding Device into Stomach, Percutaneous Approach (ICD-10-PCS; 2016-06-01)
DX: C90.00 Multiple myeloma not having achieved remission (principal); J69.0 Pneumonitis due to inhalation of food and vomit; R64 Cachexia; E87.0 Hyperosmolality and hypernatremia; E87.2 Acidosis; N39.0 Urinary tract infection, site not specified; E83.52 Hypercalcemia; N40.0 Benign prostatic hyperplasia without lower urinary tract symptoms; E86.0 Dehydration; R32 Unspecified urinary incontinence; R62.7 Adult failure to thrive
CPT/HCPCS: 2NBSP; 83883; 36415; 73620-LT; 73620-RT; 74176; 76775; 77012; 77075; 81001; 82436; 82652; 82784; 84165; 84166; 86334; 87040; 87070; 87086; 87389; 88184; 88305; 88313; 90732; 93005; 93010; 94799; 96360; 97001-GP; 97110-GO; 97116-GO; 97530-GO; J0131; J0610; J0630; J0690; J0696; J1644; J2430; J3010; J3490; J7042; J7060